=== PATIENT | male | born 1945 | race Hispanic/Latino ===

== ENCOUNTER 2017-10-29 17:36 | Emergency (ER) | payer OTHER ==
[2017-10-29 18:20] LABS: Absolute Lymphocytes (CBC) 1.1 K/uL (0.7-4.9); Absolute Monocytes 0.4 K/uL (0.1-1.3); Absolute Neutrophil 4.6 K/uL (1.8-8.0); Eosinophils % 3.9 % (0-4.4); Hematocrit 40.5 % (39.6-49.0); Lymphocytes % 16.6 % (15.3-44.8); MCH 31.8 pg (27.0-35.0); MCV 90.6 fL (80-100); Monocytes % 6.6 % (3.3-12.3); RBC Red Blood Cell Count 4.47 M/uL (4.33-5.43)
[2017-10-29 18:38] LABS: Albumin 4.3 g/dL (3.4-5.0); Bilirubin Direct 0.2 mg/dL (0-0.2); Bilirubin Total 0.7 mg/dL (0.2-1.0); Potassium 4.2 mmol/L (3.5-5.1); Protein, Total 8.1 g/dL (6.4-8.2)
--- NOTE | 2017-10-29 19:05 | RAD REPORT ---
EXAM DESCRIPTION: CT - Stone Protocol - 10/29/2017 6:42 pm CLINICAL HISTORY: Abdominal pain. Hematuria COMPARISON: November 2016 TECHNIQUE: Computed axial tomography of the abdomen pelvis was obtained without oral or IV contrast. Lack of IV and oral contrast limits evaluation of solid organs, bowel, and vessels. Coronal reformat bridget images were obtained and reviewed. All CT scans are performed using dose optimization technique as appropriate and may include automated exposure control or mA/KV adjustment according to patient size. FINDINGS: A renal calculus is not seen. An ureteral calculus is not noted. A bladder calculus is not present. The bladder is not well distended. There may be bladder wall thickening present. Mild stran ding is present within the adjacent fat. The prostate gland is mildly to moderately enlarged A small right inguinal hernia is present The liver, pancreas and adrenals appear grossly normal. The spleen is borderline enlarged Postsurgical changes involve the colon without obstruction. Diverticula stem from the colon. Minimal stranding is present adjacent to the sigmoid colon. IMPRESSION: Negative for a genitourinary calculus Minimal sigmoid diverticulitis is suspected Possible bladder wall thickening with mild stranding within the adjacent fat may indicate a cystitis
[2017-10-29 19:33] LABS: Urine Appearance TURBID; Urine Blood 3+ (NEG); Urine Color RED; Urine Glucose NEGATIVE (NEG); Urine Protein 3+ (NEG); Urine Specific Gravity 1.025 (1.005-1.030)
[2017-10-29 19:46] LABS: Urine Bilirubin NEGATIVE (NEG)
[2017-10-29] MEDS ORDERED: NA CHLORIDE 0.9% 1,000 ML ONE (20:09)
[2017-10-29] MEDS ORDERED: CEFTRIAXONE/SWI 1gm 1 GM/10 ML SYR ONE (20:09)
--- NOTE | 2017-10-29 20:40 | ER ---
Nurse's Notes [facility] Name: Reynaldo Perdomo Age: 72 yrs Sex: Male : 1945 Arrival Date: 10/29/2017 Time: 17:38 Bed 19 Private MD: Diagnosis: Cystitis, unspecified with hematuria Presentation: 10/29 17:38 Transition of care: patient was not received from another setting of care. Onset of rb1 symptoms was October 29, 2017 at 16:30. Care prior to arrival: None. 17:38 Method Of Arrival: EMS: [facility] 17:39 Presenting complaint: EMS states: pt reports blood in urine that started around 1600 tl3 today. Pt states obvious blood in urine and was told by his physician that he has kidney damage. 18:00 Acuity: GIANFRANCO 3 rb1 18:00 Risk Assessment: Do you want to hurt yourself or someone else? Patient reports no rb1 desire to harm self or others. Initial Sepsis Screen: Does the patient meet any 2 criteria? No. Patient's initial sepsis screen is negative. Does the patient have a suspected source of infection? No. Patient's initial sepsis screen is negative. Triage Assessment: 17:41 General: Appears in no apparent distress. Behavior is calm, cooperative. Pain: Denies dm5 pain. Neuro: Level of Consciousness is awake, alert, obeys commands, Oriented to person, place, time. Cardiovascular: Denies chest pain. Respiratory: Airway is patent Respiratory effort is even, unlabored, relaxed, Respiratory pattern is regular. : Reports blood in urine Denies burning with urination, inability to void. Derm: Skin is pink, warm \T\ dry. Historical: - Allergies: 18:00 No Known Allergies; rb1 - Home Meds: 18:00 amlodipine oral [Active]; Aspirin Oral [Active]; clopidogrel 75 mg Oral tab 1 tab once rb1 daily [Active]; levothyroxine oral [Active]; Metoprolol Tartrate Oral [Active]; pantoprazole Oral [Active]; rosuvastatin Oral [Active]; - PMHx: 18:00 Hypertension; [place]; stroke; rb1 - PSHx: 18:00 Cholecystectomy; Hernia repair; unknown intestinal surgery; cardiac stents x2; rb1 - Immunization history:: Adult Immunizations up to date. - Ebola Screening: : Patient negative for fever greater than or equal to 101.5 degrees Fahrenheit, and additional compatible Ebola Virus Disease symptoms. - Social history:: Smoking status: Patient/guardian denies using tobacco. Screenin:00 Abuse screen: Denies threats or abuse. Nutritional screening: No deficits noted. rb1 Tuberculosis screening: No symptoms or risk factors identified. Fall Risk None identified. Assessment: 18:00 General: Appears in no apparent distress. comfortable, Behavior is calm, cooperative. rb1 Pain: Denies pain. Neuro: Level of Consciousness is awake, alert, obeys commands, Oriented to person, place, time, situation. Cardiovascular: Capillary refill < 3 seconds is brisk in bilateral fingers. Respiratory: Airway is patent Respiratory effort is even, unlabored, Respiratory pattern is regular, symmetrical. GI: Reports nausea. : Reports bloody urine Denies burning with urination. Derm: Skin is dry, Skin is normal, Skin temperature is warm. 20:58 Reassessment: PT D/C HOME AMBULATORY, DX WITH HEMATURIA AND UTI. bp Vital Signs: 17:41 BP 166 / 68; Pulse 55; Resp 18; Temp 97.4; Pulse Ox 96% on R/A; Weight 124.74 kg; dm5 Height 5 ft. 11 in. (180.34 cm); 19:30 BP 160 / 61; Pulse 51; Resp 14; Pulse Ox 94% ; bp 20:59 BP 141 / 65; Pulse 51; Resp 14; Pulse Ox 94% ; bp 17:41 Body Mass Index 38.35 (124.74 kg, 180.34 cm) dm5 ED Course: 17:38 Patient arrived in ED. tl3 17:41 Arm band placed on right wrist. Patient placed in an exam room, on a stretcher. dm5 18:00 Patient has correct armband on for positive identification. Placed in gown. Bed in low rb1 position. Call light in reach. Side rails up X 1. Pulse ox on. NIBP on. Warm blanket given. 18:00 Initial lab(s) drawn, by me, sent to lab. Inserted saline lock: 22 gauge in left sv forearm, using aseptic technique. Blood collected. Flushed left forearm with 5 ml normal saline. 18:05 Sai Brito NP is PHCP. pm1 18:05 Jimenez Olivo MD is Attending Physician. pm1 18:33 Jazzmine Pina, RN is Primary Nurse. rb1 18:42 CT Stone Protocol In Process Unspecified. EDMS 18:48 Triage completed. rb1 19:00 Report given to JOSE F Mason. rb1 20:33 Primary Nurse role handed off by Jazzmine Pina, JOSE F bp 20:33 Marlon Rowland, RN is Primary Nurse. bp 20:39 Majo Gibson MD is Referral Physician. pm1 20:59 No provider procedures requiring assistance completed. IV discontinued, intact, bp bleeding controlled, No redness/swelling at site. Pressure dressing applied. Administered Medications: 20:00 Drug: Rocephin 1 grams Route: IV; Rate: calculated rate; Site: left forearm; bp 20:59 Follow up: IV Status: Completed infusion; IV Intake: 50ml bp 20:00 Drug: NS 0.9% 1000 ml Route: IV; Rate: 1000 ml; Site: left forearm; bp 21:00 Follow up: IV Status: Completed infusion; IV Intake: 1000ml bp Intake: 20:59 IV: 50ml; Total: 50ml. bp 21:00 IV: 1000ml; Total: 1050ml. bp Outcome: 20:39 Discharge ordered by MD. pm1 20:58 Discharged to home ambulatory. bp 20:58 Condition: stable 20:58 Discharge instructions given to patient, Instructed on discharge instructions, follow up and referral plans. medication usage, Demonstrated understanding of instructions, follow-up care, medications, Prescriptions given X 1. 21:00 Patient left the ED. bp Addendum: 11/03/2017 07:47 Addendum: Culture Results: Positive urine culture. No further action required. Bacteria s s sensitive to prescribed antibiotic. Signatures: Dispatcher [employer] EDHI Jesusita Johnson RN JOSE F dm5 Bere Martin RN Karen Bangura RN RN Jazzmine Pina, RN JOSE F rb1 Sai Brito, GRAILS WEB APPLICATION DEVELOPER GRAILS WEB APPLICATION DEVELOPER pm1 Marlon Rowland, Nayeli Wolff RN, RN RN tl3
--- NOTE | 2017-10-29 20:40 | EDPHYS ---
Physician Documentation [facility] Name: Reynaldo Perdomo Age: 72 yrs Sex: Male : 1945 Arrival Date: 10/29/2017 Time: 17:38 Bed 19 Private MD: ED Physician Jimenez Olivo HPI: 10/29 20:00 This 72 yrs old Male presents to ER via EMS with complaints of Urinary Problem pm1 - blood in urine. 20:00 The patient presents with urinary symptoms, painless hematuria. Onset: The pm1 symptoms/episode began/occurred today. Modifying factors: The symptoms are alleviated by nothing, the symptoms are aggravated by nothing. Associated signs and symptoms: Pertinent negatives: abdominal pain, chest pain, dysuria, fever, shortness of breath. Severity of symptoms: in the emergency department the symptoms have improved. The patient has not experienced similar symptoms in the past. The patient has not recently seen a physician. Patient with complaints of painless hematuria with onset 3 hours prior to arrival. Historical: - Allergies: 18:00 No Known Allergies; rb1 - Home Meds: 18:00 amlodipine oral [Active]; Aspirin Oral [Active]; clopidogrel 75 mg Oral tab 1 tab once rb1 daily [Active]; levothyroxine oral [Active]; Metoprolol Tartrate Oral [Active]; pantoprazole Oral [Active]; rosuvastatin Oral [Active]; - PMHx: 18:00 Hypertension; [place]; stroke; rb1 - PSHx: 18:00 Cholecystectomy; Hernia repair; unknown intestinal surgery; cardiac stents x2; rb1 - Immunization history:: Adult Immunizations up to date. - Ebola Screening: : Patient negative for fever greater than or equal to 101.5 degrees Fahrenheit, and additional compatible Ebola Virus Disease symptoms. - Social history:: Smoking status: Patient/guardian denies using tobacco. ROS: 20:00 Constitutional: Negative for fever, chills, and weight loss, Eyes: Negative for injury, pm1 pain, redness, and discharge, ENT: Negative for injury, pain, and discharge, Neck: Negative for injury, pain, and swelling, Cardiovascular: Negative for chest pain, palpitations, and edema, Respiratory: Negative for shortness of breath, cough, wheezing, and pleuritic chest pain, Abdomen/GI: Negative for abdominal pain, nausea, vomiting, diarrhea, and constipation, Back: Negative for injury and pain. 20:00 MS/Extremity: Negative for injury and deformity, Skin: Negative for injury, rash, and discoloration, Neuro: Negative for headache, weakness, numbness, tingling, and seizure. 20:00 : Positive for hematuria, Negative for urinary frequency, small amounts, burning with urination, difficulty urinating, penile discharge. Exam: 20:00 Constitutional: This is a well developed, well nourished patient who is awake, alert, pm1 and in no acute distress. Head/Face: Normocephalic, atraumatic. Eyes: Pupils equal round and reactive to light, extra-ocular motions intact. Lids and lashes normal. Conjunctiva and sclera are non-icteric and not injected. Cornea within normal limits. Periorbital areas with no swelling, redness, or edema. ENT: Nares patent. No nasal discharge, no septal abnormalities noted. Tympanic membranes are normal and external auditory canals are clear. Oropharynx with no redness, swelling, or masses, exudates, or evidence of obstruction, uvula midline. Mucous membranes moist. Neck: Trachea midline, no thyromegaly or masses palpated, and no cervical lymphadenopathy. Supple, full range of motion without nuchal rigidity, or vertebral point tenderness. No Meningismus. Chest/axilla: Normal chest wall appearance and motion. Nontender with no deformity. No lesions are appreciated. Cardiovascular: Regular rate and rhythm with a normal S1 and S2. No gallops, murmurs, or rubs. No pulse deficits. Respiratory: Lungs have equal breath sounds bilaterally, clear to auscultation and percussion. No rales, rhonchi or wheezes noted. No increased work of breathing, no retractions or nasal flaring. Abdomen/GI: Soft, non-tender, with normal bowel sounds. No distension or tympany. No guarding or rebound. No evidence of tenderness throughout. Back: No spinal tenderness. No costovertebral tenderness. Full range of motion. Skin: Warm, dry with normal turgor. Normal color with no rashes, no lesions, and no evidence of cellulitis. MS/ Extremity: Pulses equal, no cyanosis. Neurovascular intact. Full, normal range of motion. 20:00 Neuro: Orientation: is normal, Motor: is normal, moves all fours. Vital Signs: 17:41 BP 166 / 68; Pulse 55; Resp 18; Temp 97.4; Pulse Ox 96% on R/A; Weight 124.74 kg; dm5 Height 5 ft. 11 in. (180.34 cm); 19:30 BP 160 / 61; Pulse 51; Resp 14; Pulse Ox 94% ; bp 20:59 BP 141 / 65; Pulse 51; Resp 14; Pulse Ox 94% ; bp 17:41 Body Mass Index 38.35 (124.74 kg, 180.34 cm) dm5 MDM: 18:05 Patient medically screened. pm1 20:38 Data reviewed: vital signs. Data interpreted: Pulse oximetry: on room air is 96 %. pm1 Interpretation: normal. Counseling: I had a detailed discussion with the patient and/or guardian regarding: the historical points, exam findings, and any diagnostic results supporting the discharge/admit diagnosis, lab results, radiology results, the need for outpatient follow up, to return to the emergency department if symptoms worsen or persist or if there are any questions or concerns that arise at home. 20:38 ED course: Instructed to the patient to follow up with urology for cystoscopy to rule pm1 out the possibility of cancer due to painless hematuria/cystitis. 10/29 17:44 Order name: Basic Metabolic Panel; Complete Time: 19:47 al 10/29 17:44 Order name: CBC with Diff; Complete Time: 19:47 10/29 17:44 Order name: Hepatic Function; Complete Time: 19:47 al 10/29 17:44 Order name: Lipase; Complete Time: 19:47 al 10/29 19:02 Order name: Urinalysis bp 10/29 17:44 Order name: IV Saline Lock; Complete Time: 18:54 al 10/29 17:44 Order name: Labs collected and sent; Complete Time: 18:54 al 10/29 18:11 Order name: CT Stone Protocol; Complete Time: 19:47 pm1 10/29 19:27 Order name: Urinalysis W/Microscopic EDMS 10/29 19:47 Order name: Urine Culture pm1 Administered Medications: 20:00 Drug: Rocephin 1 grams Route: IV; Rate: calculated rate; Site: left forearm; bp 20:59 Follow up: IV Status: Completed infusion; IV Intake: 50ml bp 20:00 Drug: NS 0.9% 1000 ml Route: IV; Rate: 1000 ml; Site: left forearm; bp 21:00 Follow up: IV Status: Completed infusion; IV Intake: 1000ml bp Disposition: 10/29/17 20:39 Discharged to Home. Impression: Cystitis, unspecified with hematuria. - Condition is Stable. - Discharge Instructions: Urinary Tract Infection, Adult. - Prescriptions for Bactrim DS 800- 160 mg Oral Tablet - take 1 tablet by ORAL route every 12 hours for 10 days; 20 tablet. - Medication Reconciliation Form, Thank You Letter, Antibiotic Education, Prescription Opioid Use form. - Follow up: Emergency Department; When: As needed; Reason: Worsening of condition. Follow up: Majo Gibson MD; When: 2 - 3 days; Reason: Recheck today's complaints, Continuance of care, Re-evaluation by your physician. - Problem is new. - Symptoms have improved. Addendum: 10/31/2017 11:30 Co-signature as Attending Physician, Jimenez Oilvo MD I agree with the assessment and w a plan of care. Signatures: Dispatcher [employer] [facility] Jazzmine Pina, RN RN rb1 Sai Brito, SABIHA SQUIRT MACHINE OPERATOR pm1 Jimenez Olivo MD MD al Marlon Rowland, RN RN bp Corrections: (The following items were deleted from the chart) 10/29 19:03 17:44 Urine Dipstick-Ancillary ordered. [facility] 19:27 17:44 UA MICROSCOPIC+U.LAB.BRZ ordered. [facility] 19:27 19:02 Urinalysis ordered. [facility] 21:00 20:39 10/29/2017 20:39 Discharged to Home. Impression: Cystitis, unspecified with bp hematuria. Condition is Stable. Forms are Medication Reconciliation Form, Thank You Letter, Antibiotic Education, Prescription Opioid Use. Follow up: Emergency Department; When: As needed; Reason: Worsening of condition. Follow up: Majo Gibson; When: 2 - 3 days; Reason: Recheck today's complaints, Continuance of care, Re-evaluation by your physician. Problem is new. Symptoms have improved. pm1
[2017-10-29 21:05] VITALS: TEMP 97.4
[2017-10-29 21:06] VITALS: O2SAT 94
[2017-10-29 21:07] VITALS: BP 141/65
[2017-10-29 21:56] LABS: Urine Bacteria 20-50 /HPF (NONE SEEN); Urine Culture Reflex Order NOT NEEDED; Urine RBC LOADED /HPF (NONE SEEN)
== END 2017-10-29 21:00 | disposition home or self-care (01) ==
LOC: ER 17:36
DX: N30.91 Cystitis, unspecified with hematuria (principal); Z79.02 Long term (current) use of antithrombotics/antiplatelets; Z79.82 Long term (current) use of aspirin; I10 Essential (primary) hypertension; Z86.73 Personal history of transient ischemic attack (TIA), and cerebral infarction without residual deficits; I25.2 Old myocardial infarction; Z95.5 Presence of coronary angioplasty implant and graft
CPT/HCPCS: 36415; 74176; 76377; 80048; 80076; 81001; 83690; 85025; J0696; J7030; 87077; 87086; 87088; 87186; 96365; 99284

== ENCOUNTER 2018-06-11 09:06 | Emergency (ER) | payer OTHER, SELFPAY ==
[2018-06-11 09:51] LABS: Urine Appearance CLOUDY; Urine Bilirubin NEGATIVE (NEG); Urine Blood 3+ (NEG); Urine Glucose NEGATIVE (NEG); Urine Protein 2+ (NEG)
[2018-06-11 09:55] LABS: Urine Color RED; Urine Microscopic Reflex ORDER UMIC
[2018-06-11] MEDS ORDERED: CEFTRIAXONE/SWI 1gm 1 GM/10 ML SYR ONE (09:57)
[2018-06-11] MEDS ORDERED: TAMSULOSIN 0.4 MG SR CAP ONE (09:57)
[2018-06-11] MEDS ORDERED: NA CHLORIDE 0.9% 500 ML ONE (09:57)
[2018-06-11 09:58] LABS: Urine Bacteria 20-50 /HPF (NONE SEEN); Urine RBC TNTC /HPF (NONE SEEN)
[2018-06-11 09:59] LABS: Urine Culture Reflex Order NOT NEEDED
--- NOTE | 2018-06-11 10:02 | RAD REPORT ---
EXAM DESCRIPTION: CT - Stone Protocol - 06/11/2018 9:53 am CLINICAL HISTORY: Flank pain. FLANK PAIN COMPARISON: Stone Protocol dated 10/29/2017; Stone Protocol dated 11/12/2016 TECHNIQUE: Axial images were obtained without oral or IV contrast. Lack of contrast limits solid org an and vascular assessment. The [id number] spans the entirety of the system partially obscuring uppermost abdomen and lung bases. Coronal reformatted images were obtained and reviewed. All CT scans are performed using dose optimization technique as appropriate and may include automated exposure control or mA/KV adjustment according to patient size. FINDINGS: The lower lung martinez are clear. Imaged portions of the liver and spleen show no suspicious findings on non-contrast imaging. The panc reas and adrenal glands are normal. No pathologic lymphadenopathy in the abdomen or pelvis. 5 mm stone is present inferior calyx left kidney. No hydronephrosis. No bowel obstruction, free air, free fluid or abscess. Normal appendix noted.Prominent sigmoid divert iculosis is present without diverticulitis. Moderate fecal retention is seen in the colon. Urinary bl adder is decompressed partially however as irregular appearance anteriorly with mild fat stranding in the pelvis. No significant bony abnormality. Moderate fat containing right inguinal hernia. IMPRESSION: 5 mm stone inferior left kidney without hydronephrosis. Inflammatory changes with wall thickening the anterior aspect of the urinary bladder. Cystitis or mas s is possible. Advise followup direct visualization with cystoscopy.
[2018-06-11] MEDS ORDERED: ACETAMINOPHEN 325 MG TABLET ONE (10:16)
[2018-06-11 10:27] LABS: Absolute Lymphocytes (CBC) 0.9 K/uL (0.7-4.9); Absolute Monocytes 0.4 K/uL (0.1-1.3); Absolute Neutrophil 3.8 K/uL (1.8-8.0); Basophils % 1.2 % (0-1.3); Eosinophils % 3.5 % (0-4.4); Hematocrit 41.4 % (39.6-49.0); Lymphocytes % 17.4 % (15.3-44.8); MPV 8.3 fL (7.6-11.3); Monocytes % 6.9 % (3.3-12.3); RBC Red Blood Cell Count 4.67 M/uL (4.33-5.43)
[2018-06-11] MEDS ORDERED: CIPROFLOXACIN HCL 500 MG TAB ONE (10:35)
[2018-06-11 10:40] LABS: Albumin 3.7 g/dL (3.4-5.0); Bilirubin Direct 0.2 mg/dL (0-0.2); Bilirubin Total 0.7 mg/dL (0.2-1.0); Potassium 4.1 mmol/L (3.5-5.1); Protein, Total 7.4 g/dL (6.4-8.2)
--- NOTE | 2018-06-11 10:47 | ER ---
Nurse's Notes [facility] Name: Reynaldo Perdomo Age: 72 yrs Sex: Male : 1945 Arrival Date: 06/11/2018 Time: 09:11 Bed 18 Private MD: Diagnosis: Urinary tract infection, site not specified;Cystitis;Hematuria;Unspecified kidney failure-insufficency;Unspecified combined systolic (congestive) and diastolic (congestive) heart failure Presentation: 06/11 09:12 Presenting complaint: EMS states: Left flank pain and blood in urine + clots since this morning. Transition of care: patient was not received from another setting of care. Onset of symptoms was June 11, 2018. Risk Assessment: Do you want to hurt yourself or someone else? Patient reports no desire to harm self or others. Care prior to arrival: None. 09:12 Method Of Arrival: Ambulatory 09:12 Acuity: GIANFRANCO 3 hb 09:23 Initial Sepsis Screen: Does the patient meet any 2 criteria? No. Patient's initial em sepsis screen is negative. Does the patient have a suspected source of infection? No. Patient's initial sepsis screen is negative. Historical: - Allergies: 09:14 No Known Allergies; hb - Home Meds: 09:14 amlodipine 5 mg oral tab once daily [Active]; aspirin 325 mg oral tab once daily hb [Active]; clopidogrel 75 mg Oral tab 1 tab once daily [Active]; levothyroxine 75 mcg oral tab once daily [Active]; metoprolol tartrate 50 mg oral tab 2 times per day [Active]; pantoprazole 40 mg oral TbEC once daily [Active]; rosuvastatin 20 mg oral tab once daily [Active]; - PMHx: 09:14 Hypertension; [place]; stroke; Kidney stones; hb - PSHx: 09:14 Cholecystectomy; Hernia repair; unknown intestinal surgery; cardiac stents x2; hb - Immunization history:: Adult Immunizations up to date. - Social history:: Smoking status: Patient/guardian denies using tobacco. - Ebola Screening: : No symptoms or risks identified at this time. - Family history:: not pertinent. Screenin:22 Abuse screen: Denies threats or abuse. Nutritional screening: No deficits noted. em Tuberculosis screening: No symptoms or risk factors identified. Fall Risk None identified. Assessment: 09:24 General: Appears in no apparent distress. comfortable, Behavior is calm, cooperative, em Denies fever. Pain: Complains of pain in left low back Pain currently is 0 out of 10 on a pain scale. at worst was 7 out of 10 on a pain scale. Quality of pain is described as sharp. Neuro: Level of Consciousness is awake, alert, obeys commands, Oriented to person, place, time, situation, Moves all extremities. Gait is steady, Speech is normal. Cardiovascular: Capillary refill < 3 seconds Patient's skin is warm and dry. Respiratory: Airway is patent Respiratory effort is even, unlabored, Respiratory pattern is regular, symmetrical. GI: Abdomen is round non-distended, Bowel sounds present X 4 quads. Abd is soft and non tender X 4 quads. Reports nausea, Patient currently denies vomiting. : Reports blood in urine since this morning Denies burning with urination. Derm: Skin is intact, is healthy with good turgor, Skin is pink, warm \T\ dry. Musculoskeletal: Capillary refill < 3 seconds, Range of motion: intact in all extremities. 09:35 Reassessment: I agree with previous assessment. hb 10:10 Reassessment: reports a headache that began this morning, rates pain 4/10, request em something for pain, provider notified. 11:34 Reassessment: Patient appears in no apparent distress at this time. Patient and/or em family updated on plan of care and expected duration. Pain level reassessed. Patient is alert, oriented x 3, equal unlabored respirations, skin warm/dry/pink. Vital Signs: 09:11 BP 172 / 64; Pulse 56; Resp 16; Temp 97.9; Pulse Ox 100% on R/A; Pain 7/10; hb 10:19 BP 136 / 76; Pulse 54; Resp 18; Pulse Ox 99% on R/A; Pain 4/10; em 11:35 BP 145 / 82; Pulse 55; Resp 20; Pulse Ox 100% on R/A; em ED Course: 09:11 Patient arrived in ED. hb 09:12 Triage completed. hb 09:12 Arm band placed on. hb 09:13 Donte Ramos LVN is Primary Nurse. em 09:13 Brandon Tanner MD is Attending Physician. dannielle 09:22 Patient has correct armband on for positive identification. Placed in gown. Bed in low em position. Call light in reach. Side rails up X2. Pulse ox on. NIBP on. 09:41 Urine collected: clean catch specimen, kemar blood. em 09:50 CT completed. Patient tolerated procedure well. Patient moved back from CT. bq 09:54 CT Stone Protocol In Process Unspecified. EDMS 10:10 Initial lab(s) drawn, by me, sent to lab. Inserted saline lock: 20 gauge in right em antecubital area, using aseptic technique. Blood collected. 10:46 Majo Gibson MD is Referral Physician. dannielle 10:46 Hardy Neely MD is Referral Physician. dannielle 11:26 Lisandro Forbes MD is Referral Physician. dannielle 11:28 No provider procedures requiring assistance completed. IV discontinued, intact, em bleeding controlled, No redness/swelling at site. Pressure dressing applied. Administered Medications: 10:12 Drug: Rocephin - (cefTRIAXone) 1 grams Route: IVPB; Infused Over: 30 mins; Site: right la1 antecubital; 10:30 Follow up: IV Status: Completed infusion; IV Intake: 10ml em 10:14 Drug: Flomax 0.4 mg Route: PO; em 11:02 Follow up: Response: No adverse reaction em 10:15 Drug: NS 0.9% 500 ml Route: IV; Rate: bolus; Site: right antecubital; em 11:00 Follow up: IV Status: Completed infusion; IV Intake: 500ml em 10:15 Drug: Tylenol 650 mg Route: PO; em 11:02 Follow up: Response: No adverse reaction em 10:26 Drug: Cipro 500 mg Route: PO; em 11:02 Follow up: Response: No adverse reaction em Intake: 10:30 IV: 10ml; Total: 10ml. em 11:00 IV: 500ml; Total: 510ml. em Outcome: 10:47 Discharge ordered by . dannielle 11:34 Discharged to home ambulatory. em 11:34 Condition: good 11:34 Discharge instructions given to patient, family, Instructed on discharge instructions, follow up and referral plans. medication usage, Demonstrated understanding of instructions, follow-up care, medications, Prescriptions given X 3. 11:35 Patient left the ED. em Signatures: Dispatcher [employer] EDMS Brandon Tanner MD MD cha Quilty, Jennifer bq Ramos, Donte, SECOND WORKER SECOND WORKER Chai Parker, RN RN la1 Socorro Singh, RN RN hb
--- NOTE | 2018-06-11 10:47 | EDPHYS ---
Physician Documentation [facility] Name: Reynaldo Perdomo Age: 72 yrs Sex: Male : 1945 Arrival Date: 06/11/2018 Time: 09:11 Bed 18 Private MD: MARILYNN Physician Brandon Tanner HPI: 06/11 09:33 This 72 yrs old Male presents to ER via Ambulatory with complaints of Flank dannielle Pain, blood in urine. 09:33 The patient complains of pain in the left low back and left mid back. The pain radiates dannielle to the left low back and left mid back, to the . Onset: The symptoms/episode began/occurred 1 day(s) ago. Modifying factors: The symptoms are alleviated by nothing. the symptoms are aggravated by nothing. Associated signs and symptoms: The patient has no apparent associated signs or symptoms. Severity of pain: At its worst the pain was mild. The patient has not experienced similar symptoms in the past. Historical: - Allergies: 09:14 No Known Allergies; hb - Home Meds: 09:14 amlodipine 5 mg oral tab once daily [Active]; aspirin 325 mg oral tab once daily hb [Active]; clopidogrel 75 mg Oral tab 1 tab once daily [Active]; levothyroxine 75 mcg oral tab once daily [Active]; metoprolol tartrate 50 mg oral tab 2 times per day [Active]; pantoprazole 40 mg oral TbEC once daily [Active]; rosuvastatin 20 mg oral tab once daily [Active]; - PMHx: 09:14 Hypertension; [place]; stroke; Kidney stones; hb - PSHx: 09:14 Cholecystectomy; Hernia repair; unknown intestinal surgery; cardiac stents x2; hb - Immunization history:: Adult Immunizations up to date. - Social history:: Smoking status: Patient/guardian denies using tobacco. - Ebola Screening: : No symptoms or risks identified at this time. - Family history:: not pertinent. ROS: 09:33 Constitutional: Negative for fever, chills, and weight loss, Eyes: Negative for injury, dannielle pain, redness, and discharge, ENT: Negative for injury, pain, and discharge, Neck: Negative for injury, pain, and swelling, Cardiovascular: Negative for chest pain, palpitations, and edema, Respiratory: Negative for shortness of breath, cough, wheezing, and pleuritic chest pain, MS/Extremity: Negative for injury and deformity, Skin: Negative for injury, rash, and discoloration, Neuro: Negative for headache, weakness, numbness, tingling, and seizure, Psych: Negative for depression, anxiety, suicide ideation, homicidal ideation, and hallucinations, Allergy/Immunology: Negative for hives, rash, and allergies, Endocrine: Negative for neck swelling, polydipsia, polyuria, polyphagia, and marked weight changes, Hematologic/Lymphatic: Negative for swollen nodes, abnormal bleeding, and unusual bruising. 09:33 Abdomen/GI: Positive for abdominal pain, of the anterior aspect of left lateral abdomen, posterior aspect of left lateral abdomen, left upper quadrant and left lower quadrant. Exam: 09:33 Constitutional: This is a well developed, well nourished patient who is awake, alert, dannielle and in no acute distress. Head/Face: Normocephalic, atraumatic. Eyes: Pupils equal round and reactive to light, extra-ocular motions intact. Lids and lashes normal. Conjunctiva and sclera are non-icteric and not injected. Cornea within normal limits. Periorbital areas with no swelling, redness, or edema. ENT: Nares patent. No nasal discharge, no septal abnormalities noted. Tympanic membranes are normal and external auditory canals are clear. Oropharynx with no redness, swelling, or masses, exudates, or evidence of obstruction, uvula midline. Mucous membranes moist. Neck: Trachea midline, no thyromegaly or masses palpated, and no cervical lymphadenopathy. Supple, full range of motion without nuchal rigidity, or vertebral point tenderness. No Meningismus. Chest/axilla: Normal chest wall appearance and motion. Nontender with no deformity. No lesions are appreciated. Cardiovascular: Regular rate and rhythm with a normal S1 and S2. No gallops, murmurs, or rubs. Normal PMI, no JVD. No pulse deficits. Respiratory: Lungs have equal breath sounds bilaterally, clear to auscultation and percussion. No rales, rhonchi or wheezes noted. No increased work of breathing, no retractions or nasal flaring. Male : Normal genitalia with no discharge or lesions. Skin: Warm, dry with normal turgor. Normal color with no rashes, no lesions, and no evidence of cellulitis. MS/ Extremity: Pulses equal, no cyanosis. Neurovascular intact. Full, normal range of motion. Neuro: Awake and alert, GCS 15, oriented to person, place, time, and situation. Cranial nerves II-XII grossly intact. Motor strength 5/5 in all extremities. Sensory grossly intact. Cerebellar exam normal. Normal gait. Psych: Awake, alert, with orientation to person, place and time. Behavior, mood, and affect are within normal limits. 09:33 Abdomen/GI: Inspection: abdomen appears normal, Bowel sounds: normal, Palpation: mild abdominal tenderness, Liver: no appreciated palpable abnormalities, Hernia: not appreciated. Vital Signs: 09:11 BP 172 / 64; Pulse 56; Resp 16; Temp 97.9; Pulse Ox 100% on R/A; Pain 7/10; hb 10:19 BP 136 / 76; Pulse 54; Resp 18; Pulse Ox 99% on R/A; Pain 4/10; em 11:35 BP 145 / 82; Pulse 55; Resp 20; Pulse Ox 100% on R/A; em MDM: 09:13 Patient medically screened. [facility] 09:36 Data reviewed: vital signs, nurses notes, lab test result(s), EKG, radiologic studies. [facility] 06/11 09:32 Order name: Basic Metabolic Panel; Complete Time: 10:45 [facility] 06/11 09:32 Order name: CBC with Diff; Complete Time: 10:38 [facility] 06/11 09:32 Order name: Creatinine for Radiology; Complete Time: 10:45 dannielle 06/11 09:32 Order name: Hepatic Function; Complete Time: 10:45 dannielle 06/11 09:32 Order name: Lipase; Complete Time: 10:45 [facility] 06/11 09:32 Order name: Urine Culture [facility] 06/11 09:32 Order name: CT Stone Protocol; Complete Time: 10:03 dannielle 06/11 09:36 Order name: UA; Complete Time: 10:03 bd 06/11 09:57 Order name: Urine Microscopic Only; Complete Time: 10:03 EDMS 06/11 09:32 Order name: IV Saline Lock; Complete Time: 09:41 dannielle 06/11 09:32 Order name: Labs collected and sent; Complete Time: 09:41 dannielle 06/11 09:32 Order name: Urine Dipstick-Ancillary (obtain specimen); Complete Time: 09:39 dannielle Administered Medications: 10:12 Drug: Rocephin - (cefTRIAXone) 1 grams Route: IVPB; Infused Over: 30 mins; Site: right la1 antecubital; 10:30 Follow up: IV Status: Completed infusion; IV Intake: 10ml em 10:14 Drug: Flomax 0.4 mg Route: PO; em 11:02 Follow up: Response: No adverse reaction em 10:15 Drug: NS 0.9% 500 ml Route: IV; Rate: bolus; Site: right antecubital; em 11:00 Follow up: IV Status: Completed infusion; IV Intake: 500ml em 10:15 Drug: Tylenol 650 mg Route: PO; em 11:02 Follow up: Response: No adverse reaction em 10:26 Drug: Cipro 500 mg Route: PO; em 11:02 Follow up: Response: No adverse reaction em Disposition: 06/11/18 10:47 Discharged to Home. Impression: Urinary tract infection, site not specified, Cystitis, Hematuria, Unspecified kidney failure - insufficency, Unspecified combined systolic (congestive) and diastolic (congestive) heart failure. - Condition is Stable. - Discharge Instructions: Heart Failure, Dysuria, Hematuria, Adult, Urinary Tract Infection, Adult, Kidney Stones, [id number], Urinary Tract Infection, Adult, [id number]-[id number], Chronic Kidney Disease, Adult, Kswl-rj-[id number], Heart Failure, Hicr-gj-Hmbj, Chronic Kidney Disease, Adult. - Prescriptions for Cipro 250 mg Oral Tablet - take 1 tablet by ORAL route every 12 hours for 7 days; 14 tablet. Flomax 0.4 mg Oral Capsule, Sust. Release 24 hr - take 1 capsule by ORAL route once daily 1/2 hour following the same meal each day; 20 capsule. Bactrim DS 800- 160 mg Oral Tablet - take 1 tablet by ORAL route every 12 hours for 5 days; 6 tablet. - Medication Reconciliation Form, Thank You Letter, Antibiotic Education, Prescription Opioid Use form. - Follow up: Private Physician; When: 2 - 3 days; Reason: Recheck today's complaints, Continuance of care, Re-evaluation by your physician. Follow up: Majo Gibson; When: 2 - 3 days; Reason: Recheck today's complaints, Re-evaluation by your physician. Follow up: Hardy Neely MD; When: 2 - 3 days; Reason: Recheck today's complaints, Re-evaluation by your physician. Follow up: Lisandro Forbes MD; When: 1 - 2 days; Reason: Recheck today's complaints, Re-evaluation by your physician. - Problem is new. - Symptoms have improved. Signatures: Dispatcher [employer] EDBrandon Brock MD MD cha Munoz, Donte, FINAL TESTER FINAL TESTER em Chai Thompson RN RN la1 Socorro Singh RN RN Corrections: (The following items were deleted from the chart) 11:26 10:47 06/11/2018 10:47 Discharged to Home. Impression: Urinary tract infection, site dannielle not specified; Cystitis; Hematuria; Unspecified kidney failure - insufficency. Condition is Stable. Discharge Instructions: Dysuria, Hematuria, Adult, Urinary Tract Infection, Adult, Kidney Stones, Jwny-if-Iqoi, Urinary Tract Infection, Adult, Yzjh-[id number]. Prescriptions for Cipro 250 mg Oral Tablet - take 1 tablet by ORAL route every 12 hours for 10 days; 20 tablet, Flomax 0.4 mg Oral Capsule, Sust. Release 24 hr - take 1 capsule by ORAL route once daily 1/2 hour following the same meal each day; 20 capsule, Bactrim DS 800-160 mg Oral Tablet - take 1 tablet by ORAL route every 12 hours for 5 days; 6 tablet. and Forms are Medication Reconciliation Form, Thank You Letter, Antibiotic Education, Prescription Opioid Use. Follow up: Private Physician; When: 2 - 3 days; Reason: Recheck today's complaints, Continuance of care, Re-evaluation by your physician. Follow up: Majo Gibson; When: 2 - 3 days; Reason: Recheck today's complaints, Re-evaluation by your physician. Follow up: Hardy Neely; When: 2 - 3 days; Reason: Recheck today's complaints, Re-evaluation by your physician. Problem is new. Symptoms have improved. dannielle 11:35 11:26 06/11/2018 10:47 Discharged to Home. Impression: Urinary tract infection, site em not specified; Cystitis; Hematuria; Unspecified kidney failure - insufficency; Unspecified combined systolic (congestive) and diastolic (congestive) heart failure. Condition is Stable. Discharge Instructions: Dysuria, Hematuria, Adult, Urinary Tract Infection, Adult, Kidney Stones, [id number]-[id number], Urinary Tract Infection, Adult, Iurn-pj-Kjxi. Prescriptions for Cipro 250 mg Oral Tablet - take 1 tablet by ORAL route every 12 hours for 7 days; 14 tablet, Flomax 0.4 mg Oral Capsule, Sust. Release 24 hr - take 1 capsule by ORAL route once daily 1/2 hour following the same meal each day; 20 capsule, Bactrim DS 800-160 mg Oral Tablet - take 1 tablet by ORAL route every 12 hours for 5 days; 6 tablet. and Forms are Medication Reconciliation Form, Thank You Letter, Antibiotic Education, Prescription Opioid Use. Follow up: Private Physician; When: 2 - 3 days; Reason: Recheck today's complaints, Continuance of care, Re-evaluation by your physician. Follow up: Majo Gibson; When: 2 - 3 days; Reason: Recheck today's complaints, Re-evaluation by your physician. Follow up: Hardy Neely; When: 2 - 3 days; Reason: Recheck today's complaints, Re-evaluation by your physician. Follow up: Lisandro Forbes; When: 1 - 2 days; Reason: Recheck today's complaints, Re-evaluation by your physician. Problem is new. Symptoms have improved. dannielle
[2018-06-11 11:48] VITALS: TEMP 97.9
[2018-06-11 11:49] VITALS: BP 145/82; O2SAT 100
== END 2018-06-11 11:35 | disposition home or self-care (01) ==
LOC: ER 09:06
DX: N39.0 Urinary tract infection, site not specified (principal); N19 Unspecified kidney failure; I50.40 Unspecified combined systolic (congestive) and diastolic (congestive) heart failure; I10 Essential (primary) hypertension; I25.2 Old myocardial infarction
CPT/HCPCS: 36415; 74176; 76377; 80048; 80076; 81003; 81015; 83690; 85025; 87077; 87086; 87088; 87186; 96365; 99284; J0696

== ENCOUNTER 2019-07-19 21:17 | Emergency (ER) | payer OTHER ==
[2019-07-19] MEDS ORDERED: MORPHINE 4 MG/ML SYR ONE ×2 (22:38→23:54)
[2019-07-19 22:39] LABS: Absolute Lymphocytes (CBC) 0.8 K/uL (0.7-4.9); Basophils % 1.1 % (0-1.3); Hematocrit 42.7 % (39.6-49.0); Lymphocytes % 9.9 % (15.3-44.8); MPV 8.3 fL (7.6-11.3); RBC Red Blood Cell Count 4.88 M/uL (4.33-5.43)
[2019-07-19 22:51] LABS: Albumin 3.8 g/dL (3.4-5.0); Bilirubin Direct 0.3 mg/dL (0-0.2); Bilirubin Total 0.8 mg/dL (0.2-1.0); Protein, Total 8.2 g/dL (6.4-8.2)
[2019-07-19 23:07] LABS: Urine RBC TNTC /HPF (NONE SEEN)
[2019-07-19 23:08] LABS: Urine Bacteria <20 /HPF (NONE SEEN); Urine Culture Reflex Order REFLEXED; Urine Urothelial Cells <5 /HPF (NONE SEEN)
[2019-07-19 23:20] LABS: Urine Blood 3+ (NEG); Urine Glucose NEGATIVE (NEG); Urine Protein 3+ (NEG); Urine pH 5.5 (5.0-7.0)
[2019-07-19] MEDS ORDERED: MAGNESIUM SULFATE 1 gm IVPB 1 GM/100 ML BAG IV ONE (23:55)
[2019-07-19] MEDS ORDERED: TAMSULOSIN 0.4 MG SR CAP ONE (23:55)
[2019-07-19] MEDS ORDERED: CEFTRIAXONE/SWI 1gm 1 GM/10 ML SYR ONE (23:55)
--- NOTE | 2019-07-20 00:39 | EDPHYS ---
Physician Documentation [facility] Name: Reynaldo Perdomo Age: 73 yrs Sex: Male : 1945 Arrival Date: 07/19/2019 Time: 21:22 Bed 17 Private MD: ED Physician Eric Reed HPI: 07/18 21:44 This 73 yrs old Male presents to ER via EMS with complaints of Flank Pain. cp 21:44 The patient complains of pain in the left mid back. The pain radiates to the left cp lateral abdomen. Onset: The symptoms/episode began/occurred suddenly, today, at 17:30. 21:44 Associated signs and symptoms: Pertinent negatives: diarrhea, dysuria, fever, pain cp radiating to the lower extremities, vomiting. 21:44 Severity of pain: in the emergency department the pain is unchanged despite home cp interventions. Historical: - Allergies: 21:25 No Known Drug Allergies; ll1 - PMHx: 21:25 Hypertension; Kidney stones; CT; stroke; ll1 - PSHx: 21:25 Hernia repair; Cholecystectomy; cardiac stents x2; ll1 - Immunization history:: Adult Immunizations up to date. - Social history:: Smoking status: Patient denies any tobacco usage or history of. Patient/guardian denies using alcohol, street drugs, tobacco products. ROS: 21:50 Constitutional: Negative for body aches, chills, fever, poor PO intake. cp 21:50 Cardiovascular: Negative for chest pain, edema, palpitations. cp 21:50 Eyes: Negative for injury, pain, redness, and discharge. cp 21:50 ENT: Negative for drainage from ear(s), ear pain, sore throat, difficulty swallowing, difficulty handling secretions. 21:50 Respiratory: Negative for cough, shortness of breath, wheezing. 21:50 Abdomen/GI: Positive for abdominal pain, of the anterior aspect of left lateral abdomen and posterior aspect of left lateral abdomen, Negative for vomiting, diarrhea, constipation. 21:50 Back: Positive for flank pain, on the left. 21:50 Skin: Negative for rash. 21:50 Neuro: Negative for headache, numbness, weakness. 21:50 All other systems are negative. Exam: 22:00 Head/Face: Normocephalic, atraumatic. cp 22:00 Constitutional: The patient appears in no acute distress, alert, awake, non-diaphoretic, non-toxic, well developed, well nourished, uncomfortable. 22:00 Eyes: Periorbital structures: appear normal, Conjunctiva: normal, no exudate, no injection, Sclera: no appreciated abnormality, Lids and lashes: appear normal, bilaterally. 22:00 ENT: External ear(s): are unremarkable, Nose: is normal, Mouth: is normal, Posterior pharynx: is normal, airway is patent. 22:00 Chest/axilla: Inspection: normal, Palpation: is normal, no crepitus, no tenderness. 22:00 Cardiovascular: Rate: normal, Rhythm: regular. 22:00 Respiratory: the patient does not display signs of respiratory distress, Respirations: normal, no use of accessory muscles, no retractions, labored breathing, is not present, Breath sounds: are clear throughout, no decreased breath sounds. 22:00 Abdomen/GI: Inspection: obese Bowel sounds: active, all quadrants, Palpation: soft, in all quadrants, moderate abdominal tenderness, in the anterior aspect of left lateral abdomen and posterior aspect of left lateral abdomen, involuntary guarding, is not appreciated. 22:00 Back: pain, that is moderate, of the left mid back, ROM is normal. 22:00 Skin: no rash present. Vital Signs: 21:23 BP 169 / 65; Pulse 63; Resp 19; Temp 98.2; Pulse Ox 95% ; Pain 6/10; ll1 22:00 BP 169 / 65; Pulse 66; Resp 18; Pulse Ox 88% on R/A; vc 23:00 BP 195 / 87; Pulse 66; Resp 18; Pulse Ox 92% on R/A; vc 07/19 00:00 BP 177 / 87; Pulse 62; Resp 19; Temp 97.9(TE); Pulse Ox 91% on R/A; vc 01:00 BP 168 / 74; Pulse 65; Resp 17; Pulse Ox 92% on R/A; vc MDM: 07/18 21:33 Patient medically screened. cp 07/19 00:36 Data reviewed: vital signs, nurses notes, lab test result(s), radiologic studies, CT cp scan. Counseling: I had a detailed discussion with the patient and/or guardian regarding: the historical points, exam findings, and any diagnostic results supporting the discharge/admit diagnosis, lab results, radiology results, the need for outpatient follow up, a urologist, to return to the emergency department if symptoms worsen or persist or if there are any questions or concerns that arise at home. Response to treatment: the patient's symptoms have markedly improved after treatment, and as a result, I will discharge patient. 00:47 ED course: Patient with a narcotic score of 0 and sedative score of 0 according to [place] prescription monitor program website. 07/18 21:42 Order name: Basic Metabolic Panel; Complete Time: 23:37 07/18 23:37 Interpretation: Normal except: CL 109; GLUC 136; BUN 23; CRE 2.07; GFR 32. 07/18 21:42 Order name: CBC with Diff; Complete Time: 22:48 07/18 22:48 Interpretation: Normal except: PLT 147; TOM% 80.9; LYM% 9.9. 07/18 21:42 Order name: Hepatic Function; Complete Time: 23:37 07/18 23:55 Interpretation: Normal except: BILID 0.3; GLOB 4.4; A/G 0.9. 07/18 21:42 Order name: Lipase; Complete Time: 23:37 07/19 00:21 Interpretation: Reviewed. 07/18 21:44 Order name: Urine Microscopic Only; Complete Time: 23:37 07/19 00:21 Interpretation: Normal except: UWBC >50; URBC TNTC. 07/18 22:46 Order name: Urine Dipstick--Ancillary (enter results); Complete Time: 23:37 dh4 07/18 23:55 Interpretation: Normal except: UBLD 3+; UPROT 3+; U NIT POSITIVE; UESTR TRACE. 07/18 21:42 Order name: IV Saline Lock; Complete Time: 23:09 07/18 21:44 Order name: CT Stone Protocol 07/18 23:09 Order name: Urine Culture EDNV 07/18 21:42 Order name: Labs collected and sent; Complete Time: 22:44 07/18 21:44 Order name: Urine Dipstick-Ancillary (obtain specimen); Complete Time: 22:42 Administered Medications: 07/18 22:23 Drug: morphine 4 mg {Note: Given IM in right deltoid per medical provider..} Route: vc IVP; Site: Other; 23:00 Follow up: Response: No adverse reaction; Pain is unchanged, physician notified vc 07/19 00:10 Drug: Magnesium Sulfate 1 grams Route: IVPB; Infused Over: 1 hrs; Site: left forearm; vc 00:10 Drug: Flomax 0.4 mg Route: PO; vc 01:16 Follow up: Response: No adverse reaction vc 00:15 Drug: morphine 4 mg Route: IVP; Site: left forearm; vc 01:00 Follow up: Response: No adverse reaction vc 00:15 Drug: Rocephin 1 grams Route: IV; Rate: calculated rate; Site: left forearm; vc Disposition: 03:26 Co-signature as Attending Physician, Eric Reed MD. [email or web address] Disposition: 07/20/19 00:38 Discharged to Home. Impression: Calculus of kidney with calculus of ureter - left. - Condition is Stable. - Discharge Instructions: Kidney Stones, Renal Colic. - Prescriptions for Tylenol- Codeine #3 300-30 mg Oral Tablet - take 2 tablets by ORAL route every 6 hours As needed; 20 tablet. Flomax 0.4 mg Oral Capsule, Sust. Release 24 hr - take 1 capsule by ORAL route once daily 1/2 hour following the same meal each day; 5 capsule. Zofran 4 mg Oral Tablet - take 1 tablet by ORAL route every 12 hours As needed; 20 tablet. Keflex 500 mg Oral Capsule - take 1 capsule by ORAL route every 8 hours for 10 days; 30 capsule. - Medication Reconciliation Form, Thank You Letter, Antibiotic Education, Prescription Opioid Use form. - Follow up: Majo Gibson MD; When: 1 - 2 days; Reason: Recheck today's complaints. - Problem is new. - Symptoms have improved. Signatures: Dispatcher [employer] EDMS Brandon Parish PA PA cp Calcote, Vanessa, RN RN Ching Aguilar RN RN [facility] Eric Reed MD MD [email or web address] Corrections: (The following items were deleted from the chart) 01:17 00:38 07/20/2019 00:38 Discharged to Home. Impression: Calculus of kidney with calculus vc of ureter - left. Condition is Stable. Prescriptions for Tylenol-Codeine #3 300-30 mg Oral Tablet - take 2 tablets by ORAL route every 6 hours As needed; 20 tablet, Flomax 0.4 mg Oral Capsule, Sust. Release 24 hr - take 1 capsule by ORAL route once daily 1/2 hour following the same meal each day; 5 capsule. and Forms are Medication Reconciliation Form, Thank You Letter, Antibiotic Education, Prescription Opioid Use. Follow up: Majo Gibson; When: 1 - 2 days; Reason: Recheck today's complaints. Problem is new. Symptoms have improved. cp
--- NOTE | 2019-07-20 00:39 | ER ---
Nurse's Notes [facility] Name: Reynaldo Perdomo Age: 73 yrs Sex: Male : 1945 Arrival Date: 07/19/2019 Time: 21:22 Bed 17 Private MD: Diagnosis: Calculus of kidney with calculus of ureter-left Presentation: 07/18 21:23 Chief complaint: Patient states: Sudden onset of left flank pain today at 1800. Denies ll1 N/V/D. No fever. Denies dysuria. States he thinks it is a kidney stone. Coronavirus screen: Proceed with normal triage. Patient denies a cough. Patient denies shortness of breath or difficulty breathing. Patient denies measured and/or subjective temperature greater than 100.4F prior to today's visit. Patient denies travel on a cruise ship or to a country the [facility] currently lists as an affected area. Patient denies contact with known and/or suspected case of COVID-19. Ebola Screen: Patient denies travel to an Ebola-affected area in the 21 days before illness onset. Initial Sepsis Screen: Does the patient meet any 2 criteria? No. Patient's initial sepsis screen is negative. Does the patient have a suspected source of infection? No. Patient's initial sepsis screen is negative. Risk Assessment: Do you want to hurt yourself or someone else? Patient reports no desire to harm self or others. Onset of symptoms was July 19, 2019. 21:23 Method Of Arrival: EMS: [facility] 21:23 Acuity: GIANFRANCO 3 ll1 Triage Assessment: 21:30 General: Appears in no apparent distress. uncomfortable, obese, Behavior is calm, vc cooperative, appropriate for age. Pain: Complains of pain in posterior aspect of left lateral abdomen and anterior aspect of left lateral abdomen and left mid back. Historical: - Allergies: 21:25 No Known Drug Allergies; ll1 - PMHx: 21:25 Hypertension; Kidney stones; [place]; stroke; ll1 - PSHx: 21:25 Hernia repair; Cholecystectomy; cardiac stents x2; ll1 - Immunization history:: Adult Immunizations up to date. - Social history:: Smoking status: Patient denies any tobacco usage or history of. Patient/guardian denies using alcohol, street drugs, tobacco products. Screenin:30 Abuse screen: Denies threats or abuse. Nutritional screening: No deficits noted. vc Tuberculosis screening: No symptoms or risk factors identified. Fall Risk None identified. Assessment: 21:30 General: Appears in no apparent distress. uncomfortable, obese, Behavior is calm, vc cooperative, appropriate for age. Pain: Complains of pain in posterior aspect of left lateral abdomen and anterior aspect of left lateral abdomen and left mid back Pain radiates to groin Pain currently is 8 out of 10 on a pain scale. Quality of pain is described as sharp, shooting, stabbing. Neuro: Level of Consciousness is awake, alert, obeys commands, Oriented to person, place, time, situation, Appropriate for age. Cardiovascular: Capillary refill < 3 seconds Patient's skin is warm and dry. Respiratory: Airway is patent Respiratory effort is even, unlabored, Respiratory pattern is regular, symmetrical. GI: No signs and/or symptoms were reported involving the gastrointestinal system. : Urine is cloudy, brown Reports pain in suprapubic area lower quadrant(s) in lower back. EENT: No signs and/or symptoms were reported regarding the EENT system. Derm: Skin temperature is warm. 22:30 Reassessment: Patient appears in no apparent distress at this time. Patient and/or vc family updated on plan of care and expected duration. Pain level reassessed. 23:30 Reassessment: Patient appears in no apparent distress at this time. Patient and/or vc family updated on plan of care and expected duration. Pain level reassessed. Patient states symptoms have not improved. 07/19 00:30 Reassessment: Patient appears in no apparent distress at this time. Patient and/or vc family updated on plan of care and expected duration. Pain level reassessed. Patient is alert, oriented x 3, equal unlabored respirations, skin warm/dry/pink. Vital Signs: 07/18 21:23 BP 169 / 65; Pulse 63; Resp 19; Temp 98.2; Pulse Ox 95% ; Pain 6/10; ll1 22:00 BP 169 / 65; Pulse 66; Resp 18; Pulse Ox 88% on R/A; vc 23:00 BP 195 / 87; Pulse 66; Resp 18; Pulse Ox 92% on R/A; vc 07/19 00:00 BP 177 / 87; Pulse 62; Resp 19; Temp 97.9(TE); Pulse Ox 91% on R/A; vc 01:00 BP 168 / 74; Pulse 65; Resp 17; Pulse Ox 92% on R/A; vc ED Course: 07/18 21:22 Patient arrived in ED. ll1 21:24 Triage completed. ll1 21:26 Arm band placed on Patient placed in an exam room, on a stretcher. ll1 21:29 Brandon Parish PA is PHCP. cp 21:29 Eric Reed MD is Attending Physician. cp 21:30 Patient has correct armband on for positive identification. Bed in low position. Call vc light in reach. 21:52 Sanam Marvin, JOSE F is Primary Nurse. vc 22:58 CT Stone Protocol In Process Unspecified. EDMS 23:00 Inserted saline lock: 22 gauge in left forearm, using aseptic technique. Blood jp3 collected. 07/19 00:37 Majo Gibson MD is Referral Physician. cp 01:16 No provider procedures requiring assistance completed. IV discontinued, intact, vc bleeding controlled, No redness/swelling at site. Pressure dressing applied. Administered Medications: 07/18 22:23 Drug: morphine 4 mg {Note: Given IM in right deltoid per medical provider..} Route: vc IVP; Site: Other; 23:00 Follow up: Response: No adverse reaction; Pain is unchanged, physician notified vc 07/19 00:10 Drug: Magnesium Sulfate 1 grams Route: IVPB; Infused Over: 1 hrs; Site: left forearm; vc 00:10 Drug: Flomax 0.4 mg Route: PO; vc 01:16 Follow up: Response: No adverse reaction vc 00:15 Drug: morphine 4 mg Route: IVP; Site: left forearm; vc 01:00 Follow up: Response: No adverse reaction vc 00:15 Drug: Rocephin 1 grams Route: IV; Rate: calculated rate; Site: left forearm; vc Outcome: 00:38 Discharge ordered by . cp 01:15 Discharged to home ambulatory. vc 01:15 Condition: good 01:15 Discharge instructions given to patient, Instructed on discharge instructions, follow up and referral plans. no drinking with medication, no driving heavy equipment, medication usage, Demonstrated understanding of instructions, follow-up care, medications, Prescriptions given X 4. 01:17 Patient left the ED. vc Signatures: Dispatcher [employer] Brandon Curtis PA PA cp Pisarski, Jacob jp3 Sanam Marvin RN RN Ching Aguilar RN RN ll1
[2019-07-20 01:33] VITALS: TEMP 97.9
[2019-07-20 01:34] VITALS: BP 168/74; O2SAT 92
--- NOTE | 2019-07-20 10:54 | RAD REPORT ---
EXAM DESCRIPTION: CT - Stone Protocol - 07/20/2019 2:41 am CLINICAL HISTORY: FLANK PAIN COMPARISON: None. TECHNIQUE: CT ABDOMEN PELVIS WITHOUT IV CONTRAST on 07/19/2019 9:44 PM CDT This exam was performed according to our departmental dose-optimization program, which includes autom ated exposure control, adjustment of the mA and/or kV according to patient size and/or use of iterati ve reconstruction technique. FINDINGS: Lower lungs are clear. Abdomen: The liver is normal in appearance. There is no biliary dilatation. Gallbladder is not seen. The pancreas and spleen are normal in appearance. Adrenal glands are normal. Kidneys are mildly atrop hic. There is a 2 mm mid to lower pole left renal calculus. There is mild left hydronephrosis seconda ry to a 6 mm calculus in the lower half of the left ureter. Abdominal aorta is normal in course and caliber without aneurysm. There is no free air. There is no r etroperitoneal adenopathy. Pelvis: There is severe diverticulosis of the distal colon. There is suggestion of a mass within the right side of the urinary bladder measuring 3.7 cm. There is no free fluid. Appendix is not seen. Skeleton: There are no acute osseous findings. No suspicious bony lesions. IMPRESSION: Mildly obstructing 6 mm lower left ureteral calculus. Questionable urinary bladder mass. Consider cystoscopy. Electronically signed by: Car Chandler MD 07/19/2019 11:25 PM CDT Due to temporary technical issues with the PACS/Fluency reporting system, reports are being signed by the in house radiologist as a courtesy to ensure prompt reporting. The interpreting radiologist is f ully responsible for the content of the report.
== END 2019-07-20 01:17 | disposition home or self-care (01) ==
LOC: ER 21:17
DX: N20.2 Calculus of kidney with calculus of ureter (principal); I10 Essential (primary) hypertension; I25.2 Old myocardial infarction; Z87.442 Personal history of urinary calculi; Z95.818 Presence of other cardiac implants and grafts
CPT/HCPCS: 87088; 85025; 87086; 80048; 36415; 80076; 87077; 87186; 83690; 76377; 74176; 99284; J3475; J0696; 81003; 81015

== ENCOUNTER 2020-03-16 17:29 | Inpatient (IN) | payer OTHER ==
[2020-03-16 18:34] LABS: Absolute Lymphocytes (CBC) 0.7 K/uL (0.7-4.9); Basophils % 0.8 % (0-1.3); MPV 8.4 fL (7.6-11.3); RBC Red Blood Cell Count 4.98 M/uL (4.33-5.43)
[2020-03-16] MEDS ORDERED: SIMETHICONE 80 MG TAB ONE (18:34)
[2020-03-16 18:35] LABS: Protime INR 1.08
--- NOTE | 2020-03-16 18:38 | RAD REPORT ---
EXAM DESCRIPTION: RAD - Chest Single View - 03/16/2020 6:31 pm CLINICAL HISTORY: abd pain Chest pain. COMPARISON: CHEST SINGLE VIEW dated 08/30/2014; CHEST SINGLE VIEW dated 10/08/2013; CHEST SINGLE VIEW d ated 10/07/2013; CHEST PA AND LAT 2 VIEW dated 03/08/2012 FINDINGS: Portable technique limits examination quality. The lungs are grossly clear. The heart is upper limit of normal in size. No displaced fractures. IMPRESSION: No acute intrathoracic process suspected.
[2020-03-16 18:52] LABS: ALT/SGPT 27 U/L (12-78); AST/SGOT 24 U/L (15-37); Alkaline Phosphatase 54 U/L (45-117); BUN Blood Urea Nitrogen 24 mg/dL (7-18); Bicarbonate 29 mmol/L (21-32); Bilirubin Direct 0.2 mg/dL (0-0.2); Bilirubin Total 0.9 mg/dL (0.2-1.0); Glucose Level 150 mg/dL (74-106); Lipase 110 U/L (73-393); NT PRO-BNP 245 pg/mL (<125); Potassium 4.7 mmol/L (3.5-5.1); Protein, Total 8.5 g/dL (6.4-8.2); Sodium Level 137 mmol/L (136-145); Troponin (Emerg Dept Use Only) < 0.02 ng/mL (0.0-0.045)
[2020-03-16] MEDS ORDERED: FENTANYL CITR 100 MCG/2 ML ONE (19:17)
[2020-03-16] MEDS ORDERED: PANTOPRAZOLE 40 MG INJ ONE (19:33)
[2020-03-16] MEDS ORDERED: NA CHLORIDE 0.9% 500 ML ONE (19:38)
[2020-03-16] MEDS ORDERED: PROMETHAZINE INJ 25 MG/ML AMP ONE (19:38)
[2020-03-16] MEDS ORDERED: FAMOTIDINE 20 MG/2 ML VIAL IV ONE (19:43)
[2020-03-16] MEDS ORDERED: METOCLOPRAMIDE 10 MG/2mL INJ ONE (21:28)
[2020-03-16] MEDS ORDERED: DIPHENHYDRAMINE 50 MG/ML VIAL ONE (21:28)
[2020-03-16] MEDS ORDERED: NA CHLORIDE 0.9% 50 ML ONE (21:29)
[2020-03-16 22:39] LABS: Blood Morphology Comment NOT SEEN (NOT SEEN); Platelet Estimate ADEQ
--- NOTE | 2020-03-16 23:04 | EDPHYS ---
Physician Documentation [facility] Name: Reynaldo Perdomo Age: 74 yrs Sex: Male : 1945 Arrival Date: 03/16/2020 Time: 17:33 Bed 14 Private MD: ED Physician Austen Paz HPI: 03/16 17:56 This 74 yrs old Male presents to ER via EMS with complaints of Abdominal Pain. snw 17:56 The patient presents with abdominal pain in the epigastric area. Onset: The snw symptoms/episode began/occurred suddenly, 3 hour(s) ago, and became persistent. The symptoms do not radiate. Associated signs and symptoms: Pertinent positives: nausea and vomiting. The symptoms are described as crampy. Severity of pain: At its worst the pain was severe in the emergency department the pain is unchanged. The patient has not experienced similar symptoms in the past. The patient has not recently seen a physician, PCP moved. Historical: - Allergies: 18:03 No Known Allergies; zb - Home Meds: 18:03 amlodipine 5 mg tab once daily [Active]; aspirin 325 mg Oral tab once daily [Active]; zb clopidogrel 75 mg Oral tab 1 tab once daily [Active]; levothyroxine 75 mcg tab once daily [Active]; metoprolol tartrate 50 mg Oral tab 2 times per day [Active]; pantoprazole 40 mg Oral TbEC once daily [Active]; rosuvastatin 20 mg Oral tab once daily [Active]; - PMHx: 18:03 Hypertension; Kidney stones; [place]; stroke; zb - PSHx: 18:03 Hernia repair; Cholecystectomy; zb - Immunization history:: Adult Immunizations up to date. - Social history:: Smoking status: Patient/guardian denies using tobacco, but has a distant history of tobacco abuse. ROS: 17:53 Constitutional: Negative for fever, chills, and weight loss, Eyes: Negative for injury, snw pain, redness, and discharge, ENT: Negative for injury, pain, and discharge, Neck: Negative for injury, pain, and swelling, Cardiovascular: Negative for chest pain, palpitations, and edema, Respiratory: Negative for shortness of breath, cough, wheezing, and pleuritic chest pain, Back: Negative for injury and pain, : Negative for injury, bleeding, discharge, and swelling, MS/Extremity: Negative for injury and deformity, Skin: Negative for injury, rash, and discoloration, Neuro: Negative for headache, weakness, numbness, tingling, and seizure. 17:53 Abdomen/GI: Positive for abdominal pain, nausea and vomiting, abdominal cramps, Negative for diarrhea, constipation. Exam: 17:53 Constitutional: This is a well developed, well nourished patient who is awake, alert, snw and in no acute distress. Head/Face: Normocephalic, atraumatic. Eyes: Pupils equal round and reactive to light, extra-ocular motions intact. Lids and lashes normal. Conjunctiva and sclera are non-icteric and not injected. Cornea within normal limits. Periorbital areas with no swelling, redness, or edema. ENT: Nares patent. No nasal discharge, no septal abnormalities noted. Tympanic membranes are normal and external auditory canals are clear. Oropharynx with no redness, swelling, or masses, exudates, or evidence of obstruction, uvula midline. Mucous membranes moist. Neck: Trachea midline, no thyromegaly or masses palpated, and no cervical lymphadenopathy. Supple, full range of motion without nuchal rigidity, or vertebral point tenderness. No Meningismus. Chest/axilla: Normal chest wall appearance and motion. Nontender with no deformity. No lesions are appreciated. Cardiovascular: Regular rate and rhythm with a normal S1 and S2. No gallops, murmurs, or rubs. Normal PMI, no JVD. No pulse deficits. Respiratory: Lungs have equal breath sounds bilaterally, clear to auscultation and percussion. No rales, rhonchi or wheezes noted. No increased work of breathing, no retractions or nasal flaring. Back: No spinal tenderness. No costovertebral tenderness. Full range of motion. Skin: Warm, dry with normal turgor. Normal color with no rashes, no lesions, and no evidence of cellulitis. MS/ Extremity: Pulses equal, no cyanosis. Neurovascular intact. Full, normal range of motion. Neuro: Awake and alert, GCS 15, oriented to person, place, time, and situation. Cranial nerves II-XII grossly intact. Motor strength 5/5 in all extremities. Sensory grossly intact. Cerebellar exam normal. Normal gait. Psych: Awake, alert, with orientation to person, place and time. Behavior, mood, and affect are within normal limits. 17:53 Cardiovascular: Regular rate and rhythm with a normal S1 and S2. No gallops, murmurs, or rubs. Normal PMI, no JVD. No pulse deficits. right lower ext edema s/p CVA, no worse per pt report 17:53 Abdomen/GI: Inspection: distension, that is mild, Bowel sounds: normal, Palpation: moderate abdominal tenderness, severe abdominal tenderness, in the right upper quadrant and left upper quadrant. Vital Signs: 17:50 BP 174 / 77; Pulse 59; Resp 20; Temp 98.7; Pulse Ox 98% on R/A; Weight 124.74 kg; zb Height 5 ft. 11 in. (180.34 cm); Pain 8/10; 18:43 BP 156 / 55 RA Supine (auto/reg); Pulse 76; Resp 14; Pulse Ox 95% on R/A; dh4 18:43 BP 162 / 71 RA Sitting (auto/reg); Pulse 91; Resp 16; Pulse Ox 97% on R/A; dh4 18:43 BP 140 / 76 RA Standing (auto/reg); Pulse 98; Resp 18; Pulse Ox 97% on R/A; dh4 19:47 BP 188 / 81; Pulse 97; Resp 20; Pulse Ox 97% on R/A; zb 21:59 BP 98 / 83; Pulse 63; Resp 16; Pulse Ox 97% on R/A; zb 23:25 BP 167 / 96; Pulse 64; Pulse Ox 95% on R/A; dh4 03/17 00:40 BP 174 / 69; Pulse 63; Resp 19; Pulse Ox 95% ; rr5 03/16 17:50 Body Mass Index 38.35 (124.74 kg, 180.34 cm) zb MDM: 03/16 18:00 Patient medically screened. snw 20:05 Data reviewed: vital signs, nurses notes. Data interpreted: Pulse oximetry: on room air snw is 97 %. Interpretation: normal. Counseling: I had a detailed discussion with the patient and/or guardian regarding: the historical points, exam findings, and any diagnostic results supporting the discharge/admit diagnosis, the presence of at least one elevated blood pressure reading (>120/80) during this emergency department visit, lab results. Transition of care: After a detail discussion of the patient's case, care is transferred to Ross LAWRENCE. 23:00 ED course: I discussed the patient with Chai thompson and Dr. Buckley. Will admit to Dr. suzy Rea service. . 03/16 17:52 Order name: Basic Metabolic Panel; Complete Time: 19:22 snw 03/16 17:52 Order name: CBC with Diff; Complete Time: 22:50 snw 03/16 17:52 Order name: LFT's; Complete Time: 19:22 snw 03/16 17:52 Order name: Magnesium; Complete Time: 19:22 snw 03/16 17:52 Order name: NT PRO-BNP; Complete Time: 19:22 snw 03/16 17:52 Order name: PT-INR; Complete Time: 18:44 snw 03/16 17:52 Order name: Troponin (emerg Dept Use Only); Complete Time: 19:22 snw 03/16 17:52 Order name: Lipase; Complete Time: 19:22 snw 03/16 22:35 Order name: Manual Differential; Complete Time: 22:50 EDNJ 03/16 23:26 Order name: COVID-19 tt3 03/17 02:34 Order name: SARS-COV-2 RT PCR EDNJ 03/17 05:50 Order name: Comprehensive Metabolic Panel EDNJ 03/17 05:50 Order name: Phosphorus EDNJ 03/17 05:50 Order name: T4 Free EDMS 03/16 17:52 Order name: XRAY Chest (1 view); Complete Time: 18:44 snw 03/16 20:39 Order name: Abdomen EDMS 03/17 05:50 Order name: Magnesium EDMS 03/17 05:50 Order name: Thyroid Stimulating Hormone EDMS 03/17 06:26 Order name: CBC with Automated Diff EDMS 03/17 09:42 Order name: RAD EDMS 03/17 11:03 Order name: CBC Smear Scan EDMS 03/17 16:09 Order name: Urinalysis EDMS 03/17 16:25 Order name: Urine Microscopic Only EDMS 03/16 17:52 Order name: EKG; Complete Time: 17:53 snw 03/16 17:52 Order name: Cardiac monitoring; Complete Time: 18:21 snw 03/16 17:52 Order name: EKG - Nurse/Tech; Complete Time: 18:21 03/16 17:52 Order name: IV Saline Lock; Complete Time: 18:21 03/16 17:52 Order name: Labs collected and sent; Complete Time: 18:21 03/16 17:52 Order name: O2 Per Protocol; Complete Time: 18:04 03/16 17:52 Order name: O2 Sat Monitoring; Complete Time: 18:03/16 22:51 Order name: NG Tube; Complete Time: 00:41 [facility] Administered Medications: 18:24 Drug: Simethicone 240 mg Route: PO; zb 21:31 Follow up: Response: No adverse reaction zb 19:07 Drug: fentaNYL (PF) 25 mcg Route: IVP; Site: right upper arm; zb 21:31 Follow up: Response: No adverse reaction; Pain is decreased zb 19:27 CANCELLED (Other Intervention Used): ProTONIX 40 mg IVP once la1 19:28 Drug: Pepcid 20 mg Route: IVP; Site: right upper arm; zb 21:31 Follow up: Response: No adverse reaction zb 19:28 Drug: Phenergan 12.5 mg Route: IVP; Site: right upper arm; zb 21:31 Follow up: Response: No adverse reaction; Nausea is decreased zb 19:46 Drug: NS 0.9% 500 ml Route: IV; Rate: bolus; Site: right upper arm; zb 21:30 Drug: diphenhydrAMINE 25 mg Route: IVP; Site: right upper arm; zb 21:30 Drug: Reglan 10 mg Route: IVP; Site: right upper arm; zb 03/17 00:50 Drug: NS 0.9% 1000 ml Route: IV; Rate: 125 ml/hr; Site: right upper arm; rr5 01:27 Follow up: Response: No adverse reaction; IV Status: Infusion continued upon admission rr5 Disposition: 03/16/20 23:03 Hospitalization ordered by Bora Herrmann for Inpatient Admission. Preliminary diagnosis is Small Bowel Obstruction. - Bed requested for Telemetry/MedSurg (Inpatient). - Status is Inpatient Admission. ss - Condition is Stable. - Problem is new. - Symptoms are unchanged. Addendum: 03/19/2020 07:15 Co-signature as Attending Physician, Austen Paz MD. r n Signatures: Dispatcher [employer] EDNJ Castro Ginger, CLINICAL UNIT EDUCATOR-C CLINICAL UNIT EDUCATOR-Csnw Ross Rogers PA PA [facility] Austen Paz MD MD rn Smirch, Shelby, RN RN ss Chai Thompson, CLINICAL UNIT EDUCATOR-C CLINICAL UNIT EDUCATOR-Cla1 Carolyn Bueno, RN RN cg Sergei Coreas, RN RN ja1 Alistair Jones RN RN rr5 Isatu Garibay RN RN zb Corrections: (The following items were deleted from the chart) 03/16 19:27 17:53 ProTONIX 40 mg IVP once ordered. snw la1 19:27 19:27 ProTONIX 40 mg IVP once ordered. la1 la1 20:39 17:53 Abdomen Pelvis W Con+CT.RAD.BRZ ordered. EDNJ EDMS 23:58 23:03 Hospitalization Ordered by Bora Herrmann MD for Inpatient Admission. Preliminary cg diagnosis is Small Bowel Obstruction. Bed requested for Telemetry/MedSurg (Inpatient). Status is Inpatient Admission. Condition is Stable. Problem is new. Symptoms are unchanged. [facility] 03/17 17:05 03/16 23:58 03/16/2020 23:03 Hospitalization Ordered by Bora Herrmann MD for Inpatient ja1 Admission. Preliminary diagnosis is Small Bowel Obstruction. Bed requested for [facility] ER HOLD. Status is Inpatient Admission. Condition is Stable. Problem is new. Symptoms are unchanged. 03/17 17:53 17:05 03/16/2020 23:03 Hospitalization Ordered by Bora Herrmann MD for Inpatient ss Admission. Preliminary diagnosis is Small Bowel Obstruction. Bed requested for Telemetry/MedSurg (Inpatient). Status is Inpatient Admission. Condition is Stable. Problem is new. Symptoms are unchanged. ja1
--- NOTE | 2020-03-16 23:04 | ER ---
Nurse's Notes [facility] Name: Reynaldo Perdomo Age: 74 yrs Sex: Male : 1945 Arrival Date: 03/16/2020 Time: 17:33 Bed 14 Private MD: Diagnosis: Small Bowel Obstruction Presentation: 03/16 17:34 Acuity: GIANFRANCO 3 zb 17:50 Chief complaint: EMS states: pt had chineses food at 1100, started throwing up at 1200. zb pt states he has vomited a total of 3 times. c/o abdominal pain RUQ and LUQ, mild SOB and weakness. denies diarrhea. Coronavirus screen: difficulty breathing, vomiting. Ebola Screen: No symptoms or risks identified at this time. Initial Sepsis Screen: Does the patient meet any 2 criteria? No. Patient's initial sepsis screen is negative. Does the patient have a suspected source of infection? No. Patient's initial sepsis screen is negative. Risk Assessment: Do you want to hurt yourself or someone else? Patient reports no desire to harm self or others. Onset of symptoms. 17:50 Method Of Arrival: EMS: [facility] zb Triage Assessment: 17:56 General: Appears in no apparent distress. uncomfortable. General: Behavior is calm, zb cooperative, appropriate for age, Reports fatigue for Denies fever, feeling ill. Pain: Complains of pain in left upper quadrant and right upper quadrant Pain does not radiate. Pain currently is 8 out of 10 on a pain scale. Quality of pain is described as aching, crampy, sharp, throbbing, Pain began 4 hours ago. EENT: No signs and/or symptoms were reported regarding the EENT system. Neuro: Level of Consciousness is awake, alert, obeys commands, Oriented to person, place, time, situation. Cardiovascular: Reports shortness of breath, Capillary refill < 3 seconds in bilateral fingers Patient's skin is warm and dry. Edema is 2+ to left ankle, left foot, right ankle and right foot. Respiratory: Airway is patent Respiratory effort is even, unlabored, Respiratory pattern is regular, symmetrical. GI: Abdomen is round distended, obese, Bowel sounds present X 4 quads. Abdomen is tender to palpation in right upper quadrant and left upper quadrant Guarding noted in right upper quadrant and left upper quadrant. : No signs and/or symptoms were reported regarding the genitourinary system. Derm: Skin is intact, is healthy with good turgor, Skin is clammy, Skin is normal, Skin temperature is warm. Musculoskeletal: Circulation, motion, and sensation intact. Range of motion: intact in all extremities. Historical: - Allergies: 18:03 No Known Allergies; zb - Home Meds: 18:03 amlodipine 5 mg tab once daily [Active]; aspirin 325 mg Oral tab once daily [Active]; zb clopidogrel 75 mg Oral tab 1 tab once daily [Active]; levothyroxine 75 mcg tab once daily [Active]; metoprolol tartrate 50 mg Oral tab 2 times per day [Active]; pantoprazole 40 mg Oral TbEC once daily [Active]; rosuvastatin 20 mg Oral tab once daily [Active]; - PMHx: 18:03 Hypertension; Kidney stones; IN; stroke; zb - PSHx: 18:03 Hernia repair; Cholecystectomy; zb - Immunization history:: Adult Immunizations up to date. - Social history:: Smoking status: Patient/guardian denies using tobacco, but has a distant history of tobacco abuse. Screenin:00 Abuse screen: Denies threats or abuse. Denies injuries from another. Nutritional zb screening: No deficits noted. Tuberculosis screening: No symptoms or risk factors identified. Fall Risk No fall in past 12 months (0 pts). No secondary diagnosis (0 pts). IV access (20 points). Ambulatory Aid- Crutches/Cane/Walker (15 pts). Gait- Normal/Bed Rest/Wheelchair (0 pts) Mental Status- Oriented to own ability (0 pts). Total Mo Fall Scale indicates Low Risk Score (25-44 pts). Fall prevention measures have been instituted. Side Rails Up X 2 Placed close to Nursing Station Frequent Obs/Assesments occuring As available Patient and Family Educated on Fall Prevention Program and strategies. Assessment: 18:03 Reassessment: see triage note. zb 19:20 Reassessment: Patient appears in no apparent distress at this time. Patient and/or zb family updated on plan of care and expected duration. Pain level reassessed. Patient is alert, oriented x 3, equal unlabored respirations, skin warm/dry/pink. episode of n/v notified ECP medication administered. 21:02 Reassessment: Patient appears in no apparent distress at this time. Patient and/or zb family updated on plan of care and expected duration. Pain level reassessed. Patient is alert, oriented x 3, equal unlabored respirations, skin warm/dry/pink. waiting for patient to completed oral contrast. notified PCP for more nausea medication. 21:43 Reassessment: ECP at bedside discussing plan of care. zb 22:43 Reassessment: Patient appears in no apparent distress at this time. Patient and/or zb family updated on plan of care and expected duration. Pain level reassessed. Patient is alert, oriented x 3, equal unlabored respirations, skin warm/dry/pink. pt at beside. given urinal. 23:43 Reassessment: Patient appears in no apparent distress at this time. Patient and/or zb family updated on plan of care and expected duration. Pain level reassessed. Patient is alert, oriented x 3, equal unlabored respirations, skin warm/dry/pink. 03/17 00:36 Reassessment: NG tube placed. 16F R nare. zb Vital Signs: 03/16 17:50 BP 174 / 77; Pulse 59; Resp 20; Temp 98.7; Pulse Ox 98% on R/A; Weight 124.74 kg; zb Height 5 ft. 11 in. (180.34 cm); Pain 10/14; 18:43 BP 156 / 55 RA Supine (auto/reg); Pulse 76; Resp 14; Pulse Ox 95% on R/A; dh4 18:43 BP 162 / 71 RA Sitting (auto/reg); Pulse 91; Resp 16; Pulse Ox 97% on R/A; dh4 18:43 BP 140 / 76 RA Standing (auto/reg); Pulse 98; Resp 18; Pulse Ox 97% on R/A; dh4 19:47 BP 188 / 81; Pulse 97; Resp 20; Pulse Ox 97% on R/A; zb 21:59 BP 98 / 83; Pulse 63; Resp 16; Pulse Ox 97% on R/A; zb 23:25 BP 167 / 96; Pulse 64; Pulse Ox 95% on R/A; dh4 03/17 00:40 BP 174 / 69; Pulse 63; Resp 19; Pulse Ox 95% ; rr5 03/16 17:50 Body Mass Index 38.35 (124.74 kg, 180.34 cm) zb ED Course: 03/16 17:33 Patient arrived in ED. zb 17:34 Triage completed. zb 17:35 Ginger Erazo FNP-C is PHCP. snw 17:35 Austen Paz MD is Attending Physician. snw 17:49 Isatu Garibay, JOSE F is Primary Nurse. zb 18:00 Arm band placed on left wrist. zb 18:01 Patient has correct armband on for positive identification. Placed in gown. Bed in low zb position. Call light in reach. Pulse ox on. NIBP on. Door closed. Noise minimized. 18:22 Inserted saline lock: 20 gauge in right ,using aseptic technique. upper arm. dh4 18:31 XRAY Chest (1 view) In Process Unspecified. EDMS 20:04 PHCP role handed off by Ginger Erazo FNP-C jmm 20:04 Ross Rogers PA is PHCP. jmm 22:29 Abdomen In Process Unspecified. EDMS 23:02 Bora Herrmann MD is Hospitalizing Provider. [facility] 03/17 00:25 NGT: inserted 16 Fr. via right nare. verified placement of air over stomach, verified zb return of gastric contents, to intermittent suction. Returned gastric contents. Patient tolerated well. 00:51 No provider procedures requiring assistance completed. Patient admitted, IV remains in rr5 place. intact, No redness/swelling at site. Administered Medications: 03/16 18:24 Drug: Simethicone 240 mg Route: PO; zb 21:31 Follow up: Response: No adverse reaction zb 19:07 Drug: fentaNYL (PF) 25 mcg Route: IVP; Site: right upper arm; zb 21:31 Follow up: Response: No adverse reaction; Pain is decreased zb 19:27 CANCELLED (Other Intervention Used): ProTONIX 40 mg IVP once la1 19:28 Drug: Pepcid 20 mg Route: IVP; Site: right upper arm; zb 21:31 Follow up: Response: No adverse reaction zb 19:28 Drug: Phenergan 12.5 mg Route: IVP; Site: right upper arm; zb 21:31 Follow up: Response: No adverse reaction; Nausea is decreased zb 19:46 Drug: NS 0.9% 500 ml Route: IV; Rate: bolus; Site: right upper arm; zb 21:30 Drug: diphenhydrAMINE 25 mg Route: IVP; Site: right upper arm; zb 21:30 Drug: Reglan 10 mg Route: IVP; Site: right upper arm; zb 03/17 00:50 Drug: NS 0.9% 1000 ml Route: IV; Rate: 125 ml/hr; Site: right upper arm; rr5 01:27 Follow up: Response: No adverse reaction; IV Status: Infusion continued upon admission rr5 Output: 00:40 Gastric: 1000ml (NGT); Total: 1000ml. rr5 Outcome: 03/16 23:03 Decision to Hospitalize by Provider. suzy 03/17 01:26 Admitted to ER Hold. Please see [place] for further documentation. rr5 Condition: stable Instructed on the need for admit. 17:53 Patient left the ED. ss Signatures: Dispatcher [employer] EDMS Ginger Erazo, KALAC MEDICAL REVIEWER-CsnRoss Noonan PA PA jmm Smirch, Shelby, RN RN Alistair Jones RN RN rr5 Rex Shah [facility] Isatu Garibay RN RN zb Attema, Lee FNP-Cla1 Corrections: (The following items were deleted from the chart) 03/16 18:23 17:56 Cardiovascular: Reports shortness of breath, Capillary refill < 3 seconds in zb bilateral fingers Patient's skin is warm and dry. zb
--- NOTE | 2020-03-16 23:41 | P.HP ---
Certification for Inpatient Patient admitted to: Inpatient With expected LOS: >2 Midnights Patient will require the following post-hospital care: None Practitioner: I am a practitioner with admitting privileges, knowledge of patient current condition, hospital course, and medical plan of care. Services: Services provided to patient in accordance with Admission requirements found in Title 42 Section 412.3 of the Code of Federal Regulations Patient History Date of Service: 03/16/20 History of Present Illness: 74-year-old male with history of CAD, CVA, hypertension presents emergency department for abdominal distention and vomiting, patient does report a history of abdominal surgeries including hernia repair, cholecystectomy, appendectomy. Patient noticed abdominal swelling that started this morning with vomiting beginning around noon. Abdomen significant distended, CT demonstrates high-grade small-bowel obstruction, NG tube inserted in the emergency department general surgery consulted. Patient appears stable at this time, will admit for further evaluation and management. Patient prefers DNR status. Allergies No Known Drug Allergies Allergy (Verified 09/09/14 08:29) Unknown No Known Aller Allergy (Uncoded 11/12/16 23:29) Unknown No Known Allergies Allergy (Uncoded 10/29/17 21:03) Unknown Home Medications: Atorvastatin Calcium [Lipitor*] 40 mg PO BEDTIME #30 tab 06/14/13 lisinopriL [Prinivil*] 5 mg PO BID #60 tab 06/14/13 Cyanocobalamin (Vitamin B-12) [B-12] 1,500 mcg PO DAILY 10/07/13 Levothyroxine [Synthroid*] 25 mcg PO [id number] 10/07/13 Clopidogrel Bisulfate [Plavix*] 75 mg PO DAILY #30 tablet 10/09/13 Metoprolol Tartrate [Lopressor*] 50 mg PO Q12HR #60 tab 10/09/13 Nitroglycerin [Nitrostat*] 0.4 mg SL UD PRN #1 tab 10/09/13 Aspirin 325 mg PO DAILY #30 tablet 09/13/14 Pantoprazole [Protonix Tab*] 40 mg PO BID #60 tab 09/13/14 - Past Medical/Surgical History Diabetic: No -: HTN -: CVA -: HYPERLIPIDEMA -: HERNIA REPAIR 2010 -: CHOLICYSTECTOMY -: REMOVAL OF SMALL INTESTINE Psychosocial/ Personal History: Patient is retired and lives alone - Family History Family History: Reviewed- Non-Contributory - Social History Smoking Status: Never smoker Alcohol use: No CD- Drugs: No Caffeine use: No Place of Residence: Home Review of Systems 10-point ROS is otherwise unremarkable Gastrointestinal: Nausea, Vomiting, Abdominal Pain, Distention Physical Examination - Physical Exam General: Alert, In no apparent distress HEENT: Atraumatic, PERRLA, Mucous membr. moist/pink Neck: Supple, 2+ carotid pulse no bruit, No LAD Respiratory: Clear to auscultation bilaterally, Normal air movement Cardiovascular: Regular rate/rhythm, Normal S1 S2 Gastrointestinal: Hypoactive, No rebound, No guarding, Distended, Tenderness (Diffuse abdominal tenderness) Musculoskeletal: No tenderness Integumentary: No rashes Neurological: Normal speech, Normal strength at 5/5 x4 extr, Normal tone, Normal affect Lymphatics: No axilla or inguinal lymphadenopathy - Studies Laboratory Data (last 24 hrs) 03/16/20 18:17: PT 12.7 H, INR 1.08 03/16/20 18:17: WBC 8.6, Hgb 15.1, Hct 44.0, Plt Count 145 L 03/16/20 18:17: Sodium 137, Potassium 4.7, BUN 24 H, Creatinine 1.76 H, Glucose 150 H, Magnesium 2.0, Total Bilirubin 0.9, AST 24, ALT 27, Alkaline Phosphatase 54, Lipase 110 Assessment and Plan - Plan Assessment High-grade mechanical small bowel obstruction Chronic kidney disease Hypertension Hyperlipidemia History of CAD and CVA Plan High-grade mechanical small bowel obstruction: NGT 2 LIWS, NPO, general surgery consult in place, continue with IV hydration overnight, p.r.n. pain and nausea medications. Abdominal x-ray in the morning. DVT prophylaxis with SCDs. Chronic kidney disease: Continue with IV hydration overnight, patient's renal function is similar to baseline. Continue to monitor. Hypertension: Hold home medications as patient is NPO at this time, restart when appropriate. Hyperlipidemia: Hold home medications as patient is NPO at this time, restart when appropriate. History of CAD and CVA: Hold home medications as patient is NPO at this time, restart when appropriate. Discharge Plan: Home Plan to discharge in: Greater than 2 days - Advance Directives Does patient have a Living Will: No Does patient have a Durable POA for Healthcare: No - Code Status/Comfort Care Code Status Assessed: Yes (Full code) Critical Care: No Time Spent Managing Pts Care (In Minutes): 55
[2020-03-16] MEDS ORDERED: ONDANSETRON 4 MG/2 ML VIAL IV PRN (23:54)
[2020-03-16] MEDS: NA CHLORIDE 0.9% 1,000 ML IV SCH (23:54)
[2020-03-16] MEDS ORDERED: ACETAMINOPHEN 650MG/RECT SUPP PR PRN (23:54)
[2020-03-16] MEDS ORDERED: MORPHINE 2 MG/ML SYR IV PRN (23:54)
[2020-03-17] MEDS ORDERED: LIDOCAINE VISCOUS 2% SOLN 15 ML UDC ONE ×2 (00:18→06:10)
[2020-03-17] MEDS ORDERED: NA CHLORIDE 0.9% 1,000 ML ONE (00:57)
[2020-03-17 03:20] VITALS: BMI 38.3
[2020-03-17 05:50] LABS: Albumin 3.7 g/dL (3.4-5.0); Magnesium 2.1 mg/dL (1.8-2.4); Phosphorus 3.2 mg/dL (2.5-4.9); Potassium 4.2 mmol/L (3.5-5.1); Protein, Total 7.9 g/dL (6.4-8.2); Thyroid Stimulating Hormone 3.11 uIU/mL (0.360-3.740)
[2020-03-17 06:21] LABS: Absolute Lymphocytes (CBC) 1.5 K/uL (0.7-4.9); Basophils % 0.4 % (0-1.3); Hematocrit 44.5 % (39.6-49.0); Lymphocytes % 13.6 % (15.3-44.8); MPV 8.6 fL (7.6-11.3); RBC Red Blood Cell Count 5.02 M/uL (4.33-5.43)
--- NOTE | 2020-03-17 07:21 | EKG ---
Test Date: 2020-03-16 Test Time: 18:13:20 Urologist Md: STONEY MEASUREMENT RESULTS: Intervals: Rate: 59 CT: 168 QRSD: 84 QT: 426 QTc: 421 [place]: P: 69 CT: 168 QRS: 22 T: 82 INTERPRETIVE STATEMENTS: Sinus bradycardia Possible Left atrial enlargement Nonspecific T wave abnormality Abnormal ECG Compared to ECG 09/09/2014 03:33:42 T-wave abnormality now present Sinus rhythm no longer present Electronically Signed On 03-17-20 07:20:22 COAL FEEDER OPERATOR by Esteban Lowery
[2020-03-17] MEDS: NA CHLORIDE 0.9% 1,000 ML IV SCH ×3 (07:54→23:54)
[2020-03-17] MEDS ORDERED: MORPHINE 2 MG/ML SYR ONE (09:13)
--- NOTE | 2020-03-17 09:41 | RAD REPORT ---
EXAM DESCRIPTION: RAD - Abdomen W Erect - 03/17/2020 8:30 am CLINICAL HISTORY: Abdominal pain FINDINGS: A nasogastric tube within the distal stomach Several loops of small bowel are mildly to moderately dilated without significant change from March 16 compatible with an obstruction Air and stool is present within portions of the colon No free air noted
[2020-03-17] MEDS ORDERED: PNEUMOCOCCAL VACCINE 0.5 ML IMVAC ONE (11:00)
[2020-03-17 11:02] LABS: Blood Morphology Comment NOT SEEN (NOT SEEN); Platelet Estimate ADEQ; Platelets, Giant FEW; White Blood Cell Scan OK (OK)
--- NOTE | 2020-03-17 12:44 | RAD REPORT ---
EXAM DESCRIPTION: CT - Abdomen Pelvis Wo Contrast - 03/17/2020 8:57 am CLINICAL HISTORY: ABD PAIN COMPARISON: 06/21/2018. TECHNIQUE: CT ABDOMEN PELVIS WITHOUT IV CONTRAST on 03/16/2020 5:52 PM HEALTH OUTREACH WORKER This exam was performed according to our departmental dose-optimization program, which includes autom ated exposure control, adjustment of the mA and/or kV according to patient size and/or use of iterati ve reconstruction technique. FINDINGS: The heart is mildly enlarged. Abdomen: Liver is fatty in attenuation. There is no biliary dilatation. Spleen is mildly enlarged at 14.8 cm and is stomach is grossly distended. Adrenal glands are normal. Kidneys are moderately atroph ic. Abdominal aorta is normal in course and caliber without aneurysm. There is no free air. There is no r etroperitoneal adenopathy. Pelvis: There is severe diverticulosis of the distal colon. Distal descending colonic resection and a nastomosis was performed. There are multiple dilated anterior small bowel loops likely to the level o f the small bowel suture line. IMPRESSION: Urinary bladder is unremarkable. There is no free fluid. A ppendectomy was performed. Skeleton: There are no acute osseous findings. No suspicious bony lesions. IMPRESSION: Suspect high-grade small bowel obstruction. Electronically signed by: Car Chandler MD 03/16/2020 10:43 PM HEALTH OUTREACH WORKER Due to temporary technical issues with the PACS/Fluency reporting system, reports are being signed by the in house radiologists without review as a courtesy to insure prompt reporting. The interpreting radiologist is fully responsible for the content of the report.
--- NOTE | 2020-03-17 14:40 | CON ---
Date of Consultation: 03/17/2020 Diagnosis: Small bowel obstruction. History Of Present Illness: This is the case of a 74-year-old patient, who comes to us complaining o f nausea, vomiting, abdominal distention for the last day. He was eating a lot of broccoli. He thin ks something got stuck in his abdomen and since he could not improve and he came to the ER. He is no t new to surgical intervention. In the past, he has multiple surgeries include appendectomies, damir cystectomies, hernias repair with midline incisions. He does not remember the last colonoscopy, alth ough he was advised to do so. He denies any dysuria, hematuria, hematochezia, melena. Review of Systems: Ten points otherwise unremarkable. Medications: Reviewed including Plavix, aspirin. Social History: He does not smoke. He does drink alcohol. Physical Examination: General: The patient is awake, alert. HEENT: Pupils anicteric. NG tube in place. Neck: Supple. Chest: Clear. Abdomen: Softly distended. No guarding or rebound. Mild generalized tenderness. No peritonitis. Rectal: Deferred. Extremities: Good capillary refill. Laboratory Data: Blood work shows WBC count of 11, hemoglobin of 15, platelets of 166 with chloride is 104, creatinine is 1.73. CAT scan of abdomen and pelvis, official report still pending, although it shows small bowel obstruction. We are awaiting for the final result. Assessment: This is a 74-year-old patient with small bowel obstruction. He has a lot of broccoli ye sterday and now he developed this problem. He has multiple surgeries in the past that include also a s per the patient small bowel resection done in this institution, placing claim many years ago by Dr. Gordon, but we have no Dr. Gordon in this place or documentation of that. In that case, we still carl ve the same plan. He has the options of laparotomy, possible resection, possible ostomy with benefit s, alternatives, and risks including, but not limited to infection, bleeding, damage to adjacent stru ctures, anesthesia complication, recurrence, NE, and even . At the same time, he wants to try c onservative treatment and we agreed with him as long as clinically he continued to improve. We are g oing to continue the NG tube, bowel rest, ambulation, and if by any chance that treatment fail, then he will allow us to do the laparotomy. RUTHY/SILVIO Voice ID: [id number] Report ID: [id number]
[2020-03-17 16:01] LABS: Urine Appearance CLOUDY; Urine Bilirubin NEGATIVE (NEG); Urine Blood 2+ (NEG); Urine Color YELLOW; Urine Glucose NEGATIVE (NEG); Urine Protein 1+ (NEG); Urine pH 5.5 (5.0-7.0)
[2020-03-17 16:08] LABS: Urine Microscopic Reflex ORDER UMIC
[2020-03-17 16:24] LABS: Urine Bacteria 20-50 /HPF (NONE SEEN)
[2020-03-17 16:25] LABS: Urine Amorphous Sediment 1+ /HPF (NONE SEEN)
[2020-03-18] MEDS ORDERED: HYDRALAZINE HCL 20 MG/ML VIAL IV ONE (00:32)
[2020-03-18] MEDS: NA CHLORIDE 0.9% 1,000 ML IV SCH ×2 (03:44→16:37)
[2020-03-18 04:43] LABS: Basophils % 0.9 % (0-1.3); Hematocrit 41.5 % (39.6-49.0); Lymphocytes % 14.7 % (15.3-44.8); MPV 8.3 fL (7.6-11.3); RBC Red Blood Cell Count 4.64 M/uL (4.33-5.43)
[2020-03-18 05:01] LABS: Albumin 3.5 g/dL (3.4-5.0); Bilirubin Total 1.1 mg/dL (0.2-1.0); Magnesium 2.1 mg/dL (1.8-2.4); Potassium 3.6 mmol/L (3.5-5.1); Protein, Total 7.3 g/dL (6.4-8.2)
[2020-03-18] MEDS ORDERED: POTASSIUM PHOS IN 0.9 % NACL 15 MMOL/250 ML BAG IV ONE (08:00)
[2020-03-18] MEDS ORDERED: CLONIDINE 0.2 MG/PATCH TD SCH (09:00)
[2020-03-18] MEDS ORDERED: CLONIDINE 0.1 MG/PATCH TD SCH (09:00)
--- NOTE | 2020-03-18 09:27 | RAD REPORT ---
EXAM DESCRIPTION: RAD - Abdomen W Erect - 03/18/2020 8:57 am CLINICAL HISTORY: SBO COMPARISON: Abdomen W Erect dated 03/17/2020; Abdomen Pelvis Wo Contrast dated 03/16/2020 TECHNIQUE: Supine and upright views of the abdomen were obtained. FINDINGS: Tip of the NG tube is in the gastric fundus. Side hole of the NG tube is in the distal eso phagus near the GE junction. Stomach is decompressed. Air and stool are scattered in nondilated colon . Multiple dilated small bowel loops are again identified. Pattern is not substantially different fro m the CT study. No free air or pneumatosis. IMPRESSION: Small bowel dilatation is still present not substantially different from the CT study. NG tube tip is in the gastric fundus with the side hole in the distal esophagus near the GE junction. Stomach is decompressed.
[2020-03-18] MEDS ORDERED: METOPROLOL TARTRATE 5 MG/5 ML INJ IV STA (09:32)
--- NOTE | 2020-03-18 09:47 | P.PN ---
Subjective Date of Service: 03/17/20 Patient states that he has had flatus. He is starting to feel better. If he continues to have flatus and moves his bowel he may need to get NG tube removed. Review of Systems 10-point ROS is otherwise unremarkable Physical Examination - Vital Signs Temperature: 97.6 F Blood Pressure: 211/77 Pulse: 79 Respirations: 18 Pulse Ox (%): 93 - Physical Exam General: Alert, In no apparent distress, Oriented x3 Respiratory: Clear to auscultation bilaterally, Normal air movement Cardiovascular: Regular rate/rhythm, Normal S1 S2 Gastrointestinal: Normal bowel sounds, No guarding, Distended, Rebound Musculoskeletal: No clubbing, No swelling, No tenderness Neurological: Sensation intact, Cranial nerves 3-12 intact - Studies Medications List Reviewed: Yes Assessment & Plan - Problems (Diagnosis) (1) Partial small bowel obstruction Current Visit: Yes Status: Acute (2) CAD (coronary artery disease), [place] coronary artery Current Visit: No Status: Acute (3) Cerebrovascular accident Current Visit: No Status: Acute (4) Hypertensive disorder, systemic arterial Current Visit: No Status: Acute - Plan Plan: 1. Continue with gentle hydration 2. NG tube to suction 3. Pain control 4. Out of bed and ambulate 5. Repeat abdominal x-ray 6. Monitor electrolytes 7. Minimal pain medication 8. GI and DVT prophylaxis Discharge Plan: Home Plan to discharge in: Greater than 2 days - Advance Directives Does patient have a Living Will: No Does patient have a Durable POA for Healthcare: No - Code Status/Comfort Care Code Status Assessed: Yes Code Status: Full Code Critical Care: No Time Spent Managing PTS Care (In Minutes): 35
[2020-03-18] MEDS: HYDRALAZINE HCL 20 MG/ML VIAL IV PRN (20:20)
[2020-03-18 20:26] LABS: Phosphorus 2.4 mg/dL (2.5-4.9); Potassium 4.1 mmol/L (3.5-5.1)
--- NOTE | 2020-03-18 21:10 | PN ---
Date of Progress Note: 03/18/2020 Diagnosis: Small bowel obstruction. History Of Present Illness: This is a case of a 74-year-old patient with small bowel obstruction, mu ltiple surgeries in the past. Today, he feels better, passing flatus, although no bowel movement yet . Abdomen is softer for him. Review of Systems: No nausea. No vomiting. Passing flatus. No bowel movement. No shortness of breath. No chest pain . No fever. Ten points otherwise unremarkable. Physical Examination: General: The patient is awake, alert, in no distress. Abdomen: Soft and depressible. Softer than before. No guarding or rebound. Mild generalized tende rness. Mild distention. Extremities: Good capillary refill. Plan: We will clamp the NG tube today. If he does not vomit, we will remove it by tonight. Diet, w e are going to hold today. Tomorrow if he improves and keeps passing flatus, we are going to advance diet. We encouraged ambulation. RUTHY/SILVIO Voice ID: [id number] Report ID: [id number]
[2020-03-19] MEDS: NA CHLORIDE 0.9% 1,000 ML IV SCH ×5 (00:15→23:54)
[2020-03-19 04:51] LABS: Basophils % 0.8 % (0-1.3); Bilirubin Total 0.8 mg/dL (0.2-1.0); Hematocrit 34.8 % (39.6-49.0); Lymphocytes % 18.6 % (15.3-44.8); MPV 8.4 fL (7.6-11.3); Magnesium 2.1 mg/dL (1.8-2.4); Phosphorus 2.2 mg/dL (2.5-4.9); Potassium 3.9 mmol/L (3.5-5.1); Protein, Total 6.6 g/dL (6.4-8.2); RBC Red Blood Cell Count 3.89 M/uL (4.33-5.43)
[2020-03-19] MEDS ORDERED: POTASSIUM PHOS IN 0.9 % NACL 15 MMOL/250 ML BAG IV ONE (07:00)
[2020-03-20] MEDS: HYDRALAZINE HCL 20 MG/ML VIAL IV PRN ×2 (01:23→17:52)
[2020-03-20] MEDS: NA CHLORIDE 0.9% 1,000 ML IV SCH ×4 (04:00→23:31)
[2020-03-20 06:05] LABS: Phosphorus 2.3 mg/dL (2.5-4.9); Potassium 3.7 mmol/L (3.5-5.1)
[2020-03-20] MEDS: METOPROLOL TAR 50 MG TAB PO SCH ×3 (06:09→21:01)
[2020-03-20] MEDS: POTASS/SODIUM PHOSPHATE 1 PKT POWD.PACK PO SCH ×3 (06:22→10:09)
[2020-03-20] MEDS ORDERED: POTASSIUM 25 MEQ EFFERV TAB PO ONE (09:00)
[2020-03-20] MEDS: AMLODIPINE 5 MG TAB PO SCH (09:14)
[2020-03-20] MEDS ORDERED: MINERAL OIL 30 ML UCUP PO ONE (09:24)
--- NOTE | 2020-03-20 09:25 | P.PN ---
Subjective Date of Service: 03/18/20 Patient starting does have flatus. Spoke which surgery and will NG tube clamped at this time. Review of Systems 10-point ROS is otherwise unremarkable Physical Examination - Vital Signs Temperature: 98.5 F Blood Pressure: 145/66 Pulse: 59 Respirations: 18 Pulse Ox (%): 95 - Physical Exam General: Alert, In no apparent distress, Oriented x3 HEENT: Atraumatic, PERRLA, EOMI Neck: Supple, JVD not distended Respiratory: Clear to auscultation bilaterally, Normal air movement Cardiovascular: Regular rate/rhythm, Normal S1 S2 Gastrointestinal: Normal bowel sounds, No tenderness, No masses, No rebound, No guarding, Distended Musculoskeletal: No tenderness Integumentary: No rashes Neurological: Normal speech, Normal tone, Normal affect Lymphatics: No axilla or inguinal lymphadenopathy - Studies Medications List Reviewed: Yes Assessment & Plan - Problems (Diagnosis) (1) Partial small bowel obstruction Current Visit: Yes Status: Acute (2) CAD (coronary artery disease), [place] coronary artery Current Visit: No Status: Acute (3) Cerebrovascular accident Current Visit: No Status: Acute (4) Hypertensive disorder, systemic arterial Current Visit: No Status: Acute - Plan Plan: 1. Continue with gentle hydration 2. Clamp NGT 3. Pain control 4. Out of bed and ambulate 5. Repeat abdominal x-ray 6. Monitor electrolytes 7. Minimal pain medication 8. GI and DVT prophylaxis Discharge Plan: Home Plan to discharge in: Greater than 2 days - Advance Directives Does patient have a Living Will: No Does patient have a Durable POA for Healthcare: No - Code Status/Comfort Care Code Status: Full Code Critical Care: No Time Spent Managing PTS Care (In Minutes): 25
--- NOTE | 2020-03-20 09:27 | P.PN ---
Subjective Date of Service: 03/19/20 NG tube discontinued. Patient did have some stool that was stained on his bed. He is having a lot of flatus. He said he has not had a large bowel movement. Will monitor him and advanced diet per General surgery. Review of Systems 10-point ROS is otherwise unremarkable Physical Examination - Vital Signs Temperature: 98.5 F Blood Pressure: 145/66 Pulse: 59 Respirations: 18 Pulse Ox (%): 95 - Physical Exam General: Alert, In no apparent distress, Oriented x3 HEENT: Atraumatic, PERRLA, EOMI Neck: Supple, JVD not distended Respiratory: Clear to auscultation bilaterally, Normal air movement Cardiovascular: Regular rate/rhythm, Normal S1 S2 Gastrointestinal: Normal bowel sounds, Soft and benign, No tenderness, No rebound, No guarding, Distended Musculoskeletal: No tenderness Integumentary: No rashes Neurological: Normal speech, Normal tone, Normal affect Lymphatics: No axilla or inguinal lymphadenopathy - Studies Medications List Reviewed: Yes Assessment & Plan - Problems (Diagnosis) (1) Partial small bowel obstruction Current Visit: Yes Status: Acute (2) CAD (coronary artery disease), [place] coronary artery Current Visit: No Status: Acute (3) Cerebrovascular accident Current Visit: No Status: Acute (4) Hypertensive disorder, systemic arterial Current Visit: No Status: Acute - Plan Plan: 1. Continue with gentle hydration 2. NG tube was discontinued 3. Diet tolerated; advanced per surgery 4. Out of bed and ambulate 5. Repeat abdominal x-ray 6. Monitor electrolytes 7. Minimal pain medication 8. GI and DVT prophylaxis - Advance Directives Does patient have a Living Will: No Does patient have a Durable POA for Healthcare: No - Code Status/Comfort Care Code Status: Full Code
--- NOTE | 2020-03-20 13:36 | RAD REPORT ---
EXAM DESCRIPTION: RAD - Abdomen Single View - 03/20/2020 1:28 pm CLINICAL HISTORY: Abdominal pain FINDINGS: Mildly dilated small bowel without significant change from March 18, 2020. Air is presen t within the colon. This has the appearance of a partial small bowel obstruction
[2020-03-20] MEDS: VANCOMYCIN 2 GM in NA CHLORIDE 0.9% 500 ML IVPB SCH (16:38)
--- NOTE | 2020-03-20 17:15 | PN ---
Date of Progress Note: 03/20/2020 Reason For Service: Small bowel obstruction. Subjective: The patient is better, passing flatus. No shortness of breath. No chest pain. Objective: Abdomen: Soft and benign. Extremities: No calf tenderness. Laboratory Data: X-rays show mild dilated small bowel. Air is present within the colon. Probably t he partial small bowel obstruction. Blood work reviewed. Plan: The patient is tolerating diet, passing flatus. No more abdominal pain. So, we are going to advance diet slowly. I advised him if he continues to like that, keep the diet and puree or a full l iquid diet for the next week or so. I know he wants to go home, but we want to make sure he can take his 1800 calories. I discussed the case with the primary doctor. We are going to keep advancing di et and if he tolerates diet, at least a full liquid diet or pureed diet, then follow up with my offic e in a week. Otherwise, stay overnight and then proceed accordingly. Yesterday, the NG tube was rem antonino and the patient has no problems with that. RUTHY/SILVIO Voice ID: [id number] Report ID: [id number]
[2020-03-20] MEDS ORDERED: MAGNES/ALUMIN/SIMET 30ML UCUP PO ONE (18:00)
[2020-03-20 22:11] VITALS: O2SAT 95
[2020-03-21 05:58] LABS: Magnesium 2.2 mg/dL (1.8-2.4); Phosphorus 2.6 mg/dL (2.5-4.9); Potassium 4.1 mmol/L (3.5-5.1)
[2020-03-21] MEDS: NA CHLORIDE 0.9% 1,000 ML IV SCH ×2 (07:15→15:52)
[2020-03-21] MEDS: METOPROLOL TAR 50 MG TAB PO SCH (09:00)
[2020-03-21] MEDS ORDERED: MINERAL OIL 30 ML UCUP PO ONE (09:12)
[2020-03-21] MEDS: AMLODIPINE 5 MG TAB PO SCH (09:56)
[2020-03-21] MEDS ORDERED: LACTULOSE 20 GM/30 ML UCUP PO ONE (10:54)
[2020-03-21] MEDS: VANCOMYCIN 2 GM in NA CHLORIDE 0.9% 500 ML IVPB SCH (16:00)
[2020-03-21 18:39] VITALS: BP 160/54; TEMP 97.4
--- NOTE | 2020-03-26 04:49 | P.PN ---
Subjective Date of Service: 03/20/20 Patient has started on a clear liquid diet and advancing as tolerated. Patient still has not had a bowel movement. We went ahead and started some mineral oil as well as lactulose. Nurse gave patient prune juice. Review of Systems 10-point ROS is otherwise unremarkable Physical Examination - Vital Signs Temperature: 97.4 F Blood Pressure: 160/54 Pulse: 69 Respirations: 20 Pulse Ox (%): 94 - Physical Exam General: Alert, In no apparent distress, Oriented x3 Respiratory: Clear to auscultation bilaterally, Normal air movement Cardiovascular: Regular rate/rhythm, Normal S1 S2 Gastrointestinal: Normal bowel sounds, Soft and benign, Non-distended, No tenderness Musculoskeletal: No clubbing, No swelling, No tenderness Integumentary: No rashes Neurological: Normal tone, Sensation intact, Cranial nerves 3-12 intact - Studies Medications List Reviewed: Yes Assessment & Plan - Problems (Diagnosis) (1) Partial small bowel obstruction Status: Acute (2) CAD (coronary artery disease), [place] coronary artery Status: Acute (3) Cerebrovascular accident Status: Acute (4) Hypertensive disorder, systemic arterial Status: Acute - Plan Plan: Continue with plan of care as mentioned below 1. Continue with gentle hydration 2. NG tube was discontinued 3. Diet tolerated; advanced per surgery 4. Out of bed and ambulate 5. Repeat abdominal x-ray if symptoms worsen 6. Monitor electrolytes 7. Minimal pain medication 8. GI and DVT prophylaxis Discharge Plan: Home Plan to discharge in: Greater than 2 days - Advance Directives Does patient have a Living Will: No Does patient have a Durable POA for Healthcare: No - Code Status/Comfort Care Code Status: Full Code Critical Care: No Time Spent Managing PTS Care (In Minutes): 35
--- NOTE | 2020-03-26 04:50 | P.DS ---
Discharge Date: 03/21/20 Disposition: ROUTINE DISCHARGE Discharge Condition: GOOD - Problems (1) Partial small bowel obstruction Status: Acute (2) CAD (coronary artery disease), [place] coronary artery Status: Acute (3) Cerebrovascular accident Status: Acute (4) Hypertensive disorder, systemic arterial Status: Acute Brief History of Present Illness: 74-year-old male with history of CAD, CVA, hypertension presents emergency department for abdominal distention and vomiting, patient does report a history of abdominal surgeries including hernia repair, cholecystectomy, appendectomy. Patient noticed abdominal swelling that started this morning with vomiting beginning around noon. Abdomen significant distended, CT demonstrates high-grade small-bowel obstruction, NG tube inserted in the emergency department general surgery consulted. Patient appears stable at this time, will admit for further evaluation and management. Patient prefers DNR status. Hospital Course: We were able to DC and G tube as patient was having a lot of flatus. Patient ended up tolerating diet and then he did have a large bowel movement after he has some prune juice. Discharge home. Outpatient follow up with general surgery. Vital Signs/Physical Exam: Temp Pulse Resp BP Pulse Ox 97.4 F 69 20 160/54 H 94 03/26/20 04:48 03/26/20 04:48 03/26/20 04:48 03/26/20 04:48 03/26/20 04:48 General: Alert, In no apparent distress, Oriented x3 Laboratory Data at Discharge: WBC 5.3 K/uL (4.3-10.9) D 03/19/20 03:43 Hgb 12.0 g/dL (13.6-17.9) L 03/19/20 03:43 Hct 34.8 % (39.6-49.0) L D 03/19/20 03:43 Plt Count 117 K/uL (152-406) L 03/19/20 03:43 PT 12.7 SECONDS (9.5-12.5) H 03/16/20 18:17 INR 1.08 03/16/20 18:17 Sodium 142 mmol/L (136-145) 03/21/20 05:27 Potassium 4.1 mmol/L (3.5-5.1) 03/21/20 05:27 BUN 12 mg/dL (7-18) 03/21/20 05:27 Creatinine 1.38 mg/dL (0.55-1.3) H 03/21/20 05:27 Glucose 100 mg/dL (74-106) 03/21/20 05:27 Phosphorus 2.6 mg/dL (2.5-4.9) 03/21/20 05:27 Magnesium 2.2 mg/dL (1.8-2.4) 03/21/20 05:27 Total Bilirubin 0.8 mg/dL (0.2-1.0) 03/19/20 03:43 AST 18 U/L (15-37) 03/19/20 03:43 ALT 14 U/L (12-78) 03/19/20 03:43 Alkaline Phosphatase 38 U/L (45-117) L 03/19/20 03:43 Lipase 110 U/L (73-393) 03/16/20 18:17 Home Medications: Levothyroxine [Synthroid*] 75 mcg PO [id number] 10/07/13 Clopidogrel Bisulfate [Plavix*] 75 mg PO DAILY #30 tablet 10/09/13 Metoprolol Tartrate [Lopressor*] 50 mg PO Q12HR #60 tab 10/09/13 Aspirin 325 mg PO DAILY #30 tablet 09/13/14 Pantoprazole [Protonix Tab*] 40 mg PO BID #60 tab 09/13/14 Amlodipine Besylate 5 mg PO DAILY 03/17/20 Rosuvastatin [Crestor*] 20 mg PO BEDTIME 03/17/20 Docusate Sodium [Dulcolax Stool Softener] 100 mg PO BID #30 capsule 03/21/20 New Medications: Docusate Sodium [Dulcolax Stool Softener] 100 mg PO BID #30 capsule Patient Discharge Instructions: OK TO DC IV AND DC HOME. FOLLOW-UP WITH PRIMARY CARE PROVIDER IN 1-2 WEEKS. FOLLOW-UP WITH [facility] IN 1-2 WEEKS. RETURN TO THE ER IF symptoms worsen. CALL or TEXT DR. HAWLEY AT [phone] IF ANY QUESTIONS REGARDING HOSPITAL STAY. PLEASE CALL THE FLOOR AT [phone] IF ANY MEDICATION OR NURSING QUESTIONS. Diet: AHA Activity: Fall precautions Followup: Unknown,U [Primary Care Provider] - Time spent managing pt's care (in minutes): 35
--- NOTE | 2020-06-03 13:51 | P.PN ---
Subjective Date of Service: 03/19/20 Chief Complaint: SBO Subjective: Improving Review of Systems Respiratory: Shortness of Breath (no) Gastrointestinal: Nausea (no), Vomiting (no), Abdominal Pain (better), Distention (improved) Physical Examination - Vital Signs Temperature: 97.4 F Blood Pressure: 160/54 Pulse: 69 Respirations: 20 Pulse Ox (%): 94 - Physical Exam General: Alert, In no apparent distress, Oriented x3, Cooperative Respiratory: Normal air movement Gastrointestinal: Soft and benign - Studies Medications List Reviewed: Yes Assessment And Plan - Plan d/c NGT OOB Sips of liquid
--- NOTE | 2020-06-03 13:52 | P.PN ---
Subjective Date of Service: 03/21/20 Chief Complaint: SBO Subjective: Tolerating diet, Ambulating, Improving Review of Systems General: Unremarkable Cardiovascular: Unremarkable Gastrointestinal: Unremarkable Physical Examination - Vital Signs Temperature: 97.4 F Blood Pressure: 160/54 Pulse: 69 Respirations: 20 Pulse Ox (%): 94 - Physical Exam General: Alert, In no apparent distress, Oriented x3 Cardiovascular: No edema Gastrointestinal: Normal bowel sounds, Soft and benign, No tenderness, No rebound, No guarding Integumentary: No rashes - Studies Medications List Reviewed: Yes Assessment And Plan - Plan puree diet f/u with his Gastroenterologyst f/u with me in a week
== END 2020-03-21 17:30 | disposition home or self-care (01) | DRG 389 ==
LOC: ER 17:29 → ERHOLD 23:29 → 2ND 03-17 17:24
PROVIDERS: ADMIT Hospitalist; ATTEND Hospitalist
DX: K56.600 Partial intestinal obstruction, unspecified as to cause (principal); N17.9 Acute kidney failure, unspecified; N34.2 Other urethritis; I25.10 Atherosclerotic heart disease of native coronary artery without angina pectoris; I12.9 Hypertensive chronic kidney disease with stage 1 through stage 4 chronic kidney disease, or unspecified chronic kidney disease; N18.9 Chronic kidney disease, unspecified; E78.5 Hyperlipidemia, unspecified; I25.2 Old myocardial infarction; Z66 Do not resuscitate; Z79.82 Long term (current) use of aspirin; Z79.890 Hormone replacement therapy; Z79.899 Other long term (current) drug therapy; Z90.49 Acquired absence of other specified parts of digestive tract; Z86.73 Personal history of transient ischemic attack (TIA), and cerebral infarction without residual deficits; Z79.02 Long term (current) use of antithrombotics/antiplatelets; Z60.2 Problems related to living alone; Z20.822 Contact with and (suspected) exposure to COVID-19
CPT/HCPCS: 36415; 71045; 74018; 74019; 74176; 80048; 80053; 80076; 81003; 81015; 83690; 83735; 83880; 84100; 84132; 84439; 84443; 84484; 85025; 85610; 87077; 87086; 87088; 87186; 93005; 96361; 96374; 96375; 99285; C9113; J0360; J1200; J2270; J2550; J2765; J3010; J3370; J7030; J7040; U0003

== ENCOUNTER 2022-09-05 16:36 | Emergency (ER) | payer OTHER ==
--- OUTSIDE RECORDS SUMMARY | 2022-09-05 16:38 | XMS REPORT | Continuity of Care Document ---
:1945 Author Organization [facility] t Address [address] [place] [id number] Care Team Providers Name Role Phone Cindy-Sherri_A_AH Attending Clinician Unavailable Cindy-Sherri_A_AH Admitting Clinician Unavailable Payers Payer Name Policy Type Policy Number Effective Date Expiration Date S primo [facility] [place] - [id number] 1257-01-01 [employer] 00:00:00 (MEDICARE REPLACEMENT/ADVANT AGE - HMO) Problems This patient has no known problems. Allergies, Adverse Reactions, Alerts This patient has no known allergies or adverse reactions. Medications This patient has no known medications. Procedures This patient has no known procedures. Encounters Start End Encounter Admission Attending Care Care Encounter Source Date/Time Date/Time Type Type Clinicians Facility Department ID 2019-04-25 2019-04-25 Outpatient Will [facility] [phone] [facility] 07:18:00 07:18:00 _A_AH [id number] Family Practic e Results This patient has no known results.
[2022-09-05] MEDS ORDERED: FAMOTIDINE 20 MG/2 ML VIAL IV ONE (17:04)
[2022-09-05] MEDS ORDERED: NA CHLORIDE 0.9% 1,000 ML ONE (17:04)
[2022-09-05] MEDS ORDERED: ONDANSETRON 4 MG/2 ML VIAL ONE (17:04)
[2022-09-05 17:43] LABS: Absolute Lymphocytes (CBC) 0.9 K/uL (0.7-4.9); Hematocrit 36.9 % (39.6-49.0); Lymphocytes % 14.2 % (15.3-44.8); MCV 88.9 fL (80-100); MPV 7.9 fL (7.6-11.3); RBC Red Blood Cell Count 4.15 M/uL (4.33-5.43)
[2022-09-05 18:00] LABS: Albumin 3.4 g/dL (3.4-5.0); Bilirubin Direct 0.5 mg/dL (0-0.2); Bilirubin Indirect, Calculated 0.7 mg/dL (0.2-0.8); Bilirubin Total 1.2 mg/dL (0.2-1.0); Potassium 3.6 mEq/L (3.5-5.1); Protein, Total 7.1 g/dL (6.4-8.2); Troponin High Sensitivity 8.8 pg/mL (<58.9)
--- NOTE | 2022-09-05 18:01 | RAD REPORT ---
EXAM DESCRIPTION: Staci Single View09/05/2022 5:48 pm CLINICAL HISTORY: sob COMPARISON: 2020 FINDINGS: The lungs appear clear of acute infiltrate. The heart is mildly enlarged IMPRESSION: No acute abnormalities displayed
--- NOTE | 2022-09-05 19:09 | ER ---
Nurse's Notes [facility] Name: Reynaldo Perdomo Age: 77 yrs Sex: Male : 1945 Arrival Date: 09/05/2022 Time: 16:36 Bed 6 Private MD: Diagnosis: Heat exhaustion, unspecified;Dehydration Presentation: 09/05 16:40 Chief complaint: EMS states: Became dizzy and SOB after being outside for 2-3 hours hb today. Also reports right leg and bilat arm swelling that began while outside. SpO2 90% on RA, improved to 94% on 2LNC. Coronavirus screen: At this time, the client does not indicate any symptoms associated with coronavirus-19. Ebola Screen: No symptoms or risks identified at this time. Initial Sepsis Screen: Does the patient meet any 2 criteria? No. Patient's initial sepsis screen is negative. Does the patient have a suspected source of infection? No. Patient's initial sepsis screen is negative. Risk Assessment: Do you want to hurt yourself or someone else? Patient reports no desire to harm self or others. Onset of symptoms was September 05, 2022. 16:40 Method Of Arrival: EMS: [facility] 16:40 Acuity: GIANFRANCO 3 hb Triage Assessment: 16:41 General: Appears in no apparent distress. Behavior is calm, cooperative. Pain: Denies hb pain. EENT: No signs and/or symptoms were reported regarding the EENT system. Neuro: Level of Consciousness is awake, alert, obeys commands, Oriented to person, place, time, situation. Cardiovascular: Patient's skin is warm and dry. Respiratory: Respiratory effort is even, unlabored, Respiratory pattern is regular, symmetrical. GI: No signs and/or symptoms were reported involving the gastrointestinal system. : No signs and/or symptoms were reported regarding the genitourinary system. Derm: Skin is pink, warm \T\ dry. Musculoskeletal: No signs and/or symptoms reported regarding the musculoskeletal system. Historical: - Allergies: 16:41 No Known Drug Allergies; hb - Home Meds: 16:41 amlodipine 5 mg tab once daily [Active]; aspirin 325 mg Oral tab once daily [Active]; hb clopidogrel 75 mg Oral tab 1 tab once daily [Active]; levothyroxine 75 mcg tab once daily [Active]; metoprolol tartrate 50 mg Oral tab 2 times per day [Active]; pantoprazole 40 mg Oral TbEC once daily [Active]; rosuvastatin 20 mg Oral tab once daily [Active]; - PMHx: 16:41 Kidney stones; Hypertension; [place]; stroke; hb - Immunization history:: Adult Immunizations up to date. - Social history:: Smoking status: Patient denies any tobacco usage or history of. Screenin:43 [facility] ED Fall Risk Assessment (Adult) Score/Fall Risk Level 3 or more points = High hb Risk Oriented to surroundings, Maintained a safe environment, Educated pt \T\ family on fall prevention, incl call for assistance when getting out of bed. Abuse screen: Denies threats or abuse. Denies injuries from another. Nutritional screening: No deficits noted. Tuberculosis screening: No symptoms or risk factors identified. Assessment: 16:43 General: See triage assessment. hb 18:38 Reassessment: Patient appears in no apparent distress at this time. Patient and/or ss family updated on plan of care and expected duration. Pain level reassessed. Patient is alert, oriented x 3, equal unlabored respirations, skin warm/dry/pink. Vital Signs: 16:40 BP 161 / 53; Pulse 59; Resp 20; Temp 98(O); Pulse Ox 96% on 2 lpm NC; Weight 127.01 kg; hb Height 5 ft. 11 in. ; Pain 0/10; 19:11 BP 148 / 88; Pulse 86; Resp 16; Pulse Ox 96% ; hb 16:40 Body Mass Index 39.05 (127.01 kg, 180.34 cm) hb 16:40 Pain Scale: Adult hb [place] Coma Score: 19:15 Eye Response: spontaneous(4). Motor Response: obeys commands(6). Verbal Response: rv oriented(5). Total: 15. ED Course: 16:40 Patient arrived in ED. hb 16:41 Triage completed. hb 16:43 Mir Browning MD is Attending Physician. kdr 16:43 Arm band placed on. hb 16:43 Patient has correct armband on for positive identification. hb 16:46 Socorro Singh, RN is Primary Nurse. hb 17:50 XRAY Chest (1 view) In Process Unspecified. EDMS 17:50 No provider procedures requiring assistance completed. Inserted saline lock: 22 gauge rv in right antecubital area, using aseptic technique. 17:51 Basic Metabolic Panel Sent. rs5 17:51 LFT's Sent. rs5 17:51 Magnesium Sent. rs5 17:51 NT PRO-BNP Sent. rs5 17:51 Troponin HS Sent. rs5 19:41 IV discontinued, intact, bleeding controlled, No redness/swelling at site. Pressure rv dressing applied. Administered Medications: 17:15 Drug: NS 0.9% IV 1000 ml Route: IV; Rate: 1 bolus; Site: right wrist; hb 19:39 Follow up: IV Status: Completed infusion; IV Intake: 1000ml rv 17:15 Drug: Famotidine IVP 20 mg Route: IVP; Site: right wrist; hb 19:38 Follow up: Response: No adverse reaction rv 17:15 Drug: Ondansetron IVP 4 mg Route: IVP; Site: right wrist; hb 19:38 Follow up: Response: No adverse reaction rv Medication: 16:43 VIS not applicable for this client. hb Intake: 19:39 IV: 1000ml; Total: 1000ml. rv Outcome: 19:08 Discharge ordered by . kdr 19:39 Condition: good rv 19:39 Instructed on 19:40 Discharged to home ambulatory. rv 19:41 Patient left the ED. rv Signatures: Dispatcher [employer] EDMS Mir Browning MD MD [facility] Karen Solorio RN RN Socorro Singh RN RN Andrew Hinds RN RN rv Yves Jones rs5 Corrections: (The following items were deleted from the chart) 16:43 16:40 BP 161 / 53; Pulse 59bpm; Resp 20bpm; Pulse Ox 90% RA; Temp 98F Oral; 127.01 kg; hb Height 5 ft. 11 in.; BMI: 39.0; Pain 0/10, Adult; hb 19:40 19:39 Transferred by ground EMS to [facility], Transfer form completed. rv X-rays sent w/ patient. rv
--- NOTE | 2022-09-05 19:09 | EDPHYS ---
Physician Documentation [facility] Name: Reynaldo Perdomo Age: 77 yrs Sex: Male : 1945 Arrival Date: 09/05/2022 Time: 16:36 Bed 6 Private MD: ED Physician Mir Browning HPI: 09/05 17:22 This 77 yrs old Male presents to ER via EMS with complaints of Heat Exposure. kdr 17:22 Patient reports that he was out walking for 2 to 3 hours today. Became hot and felt he kdr was getting overheated. At 1 point he stopped sweating. He then became concerned and went back home. When he got inside he still felt poorly. Began to have some nausea and lightheadedness and dizziness. He sat down for a short bit and then went back outside into his garage. He continued to feel poorly and so he called EMS. EMS reports that he was satting in 90% on room air when they arrived and improved to 94% on 2 L nasal cannula. They provided no other significant intervention in route. Patient on arrival appears stable and nontoxic. Patient is interacting appropriately with staff and otherwise appears comfortable at this time.. Onset: The symptoms/episode began/occurred suddenly, just prior to arrival. Severity of symptoms: At their worst the symptoms were mild in the emergency department the symptoms have resolved. The patient has not experienced similar symptoms in the past. The patient has not recently seen a physician. Historical: - Allergies: 16:41 No Known Drug Allergies; hb - Home Meds: 16:41 amlodipine 5 mg tab once daily [Active]; aspirin 325 mg Oral tab once daily [Active]; hb clopidogrel 75 mg Oral tab 1 tab once daily [Active]; levothyroxine 75 mcg tab once daily [Active]; metoprolol tartrate 50 mg Oral tab 2 times per day [Active]; pantoprazole 40 mg Oral TbEC once daily [Active]; rosuvastatin 20 mg Oral tab once daily [Active]; - PMHx: 16:41 Kidney stones; Hypertension; [place]; stroke; hb - Immunization history:: Adult Immunizations up to date. - Social history:: Smoking status: Patient denies any tobacco usage or history of. ROS: 17:22 Constitutional: Negative for fever, chills, and weight loss, Eyes: Negative for injury, kdr pain, redness, and discharge, Neck: Negative for injury, pain, and swelling, Cardiovascular: Negative for chest pain, palpitations, and edema, Respiratory: Negative for shortness of breath, cough, wheezing, and pleuritic chest pain, Abdomen/GI: Negative for abdominal pain, nausea, vomiting, diarrhea, and constipation, Back: Negative for injury and pain, : Negative for injury, bleeding, discharge, and swelling, MS/Extremity: Negative for injury and deformity, Skin: Negative for injury, rash, and discoloration, Psych: Negative for depression, anxiety, suicide ideation, homicidal ideation, and hallucinations, Allergy/Immunology: Negative for hives, rash, and allergies, Endocrine: Negative for neck swelling, polydipsia, polyuria, polyphagia, and marked weight changes, Hematologic/Lymphatic: Negative for swollen nodes, abnormal bleeding, and unusual bruising. 17:22 Neuro: Positive for dizziness, weakness, Lightheaded. Exam: 17:22 Constitutional: This is a well developed, well nourished patient who is awake, alert, kdr and in no acute distress. Head/Face: Normocephalic, atraumatic. Eyes: Pupils equal round and reactive to light, extra-ocular motions intact. Lids and lashes normal. Conjunctiva and sclera are non-icteric and not injected. Cornea within normal limits. Periorbital areas with no swelling, redness, or edema. Neck: Trachea midline, no thyromegaly or masses palpated, and no cervical lymphadenopathy. Supple, full range of motion without nuchal rigidity, or vertebral point tenderness. No Meningismus. Chest/axilla: Normal chest wall appearance and motion. Nontender with no deformity. No lesions are appreciated. Cardiovascular: Regular rate and rhythm with a normal S1 and S2. No gallops, murmurs, or rubs. Normal PMI, no JVD. No pulse deficits. Respiratory: Lungs have equal breath sounds bilaterally, clear to auscultation and percussion. No rales, rhonchi or wheezes noted. No increased work of breathing, no retractions or nasal flaring. Abdomen/GI: Soft, non-tender, with normal bowel sounds. No distension or tympany. No guarding or rebound. No evidence of tenderness throughout. Back: No spinal tenderness. No costovertebral tenderness. Full range of motion. Skin: Warm, dry with normal turgor. Normal color with no rashes, no lesions, and no evidence of cellulitis. MS/ Extremity: Pulses equal, no cyanosis. Neurovascular intact. Full, normal range of motion. Neuro: Awake and alert, GCS 15, oriented to person, place, time, and situation. Cranial nerves II-XII grossly intact. Motor strength 5/5 in all extremities. Sensory grossly intact. Cerebellar exam normal. Normal gait. Psych: Awake, alert, with orientation to person, place and time. Behavior, mood, and affect are within normal limits. Vital Signs: 16:40 BP 161 / 53; Pulse 59; Resp 20; Temp 98(O); Pulse Ox 96% on 2 lpm NC; Weight 127.01 kg; hb Height 5 ft. 11 in. ; Pain 0/10; 19:11 BP 148 / 88; Pulse 86; Resp 16; Pulse Ox 96% ; hb 16:40 Body Mass Index 39.05 (127.01 kg, 180.34 cm) hb 16:40 Pain Scale: Adult hb [place] Coma Score: 19:15 Eye Response: spontaneous(4). Motor Response: obeys commands(6). Verbal Response: rv oriented(5). Total: 15. MDM: 17:22 Data reviewed: vital signs, nurses notes, lab test result(s), radiologic studies. kdr 19:08 Patient medically screened. kdr 07/02 16:50 Order name: Basic Metabolic Panel; Complete Time: 19:03 [facility] 07 16:50 Order name: CBC with Diff; Complete Time: 19:03 [facility] 07 16:50 Order name: LFT's; Complete Time: 19:03 [facility] 07 16:50 Order name: Magnesium; Complete Time: 19:03 kdr 07 16:50 Order name: NT PRO-BNP; Complete Time: 19:03 [facility] 07/ 16:50 Order name: Troponin HS; Complete Time: 19:03 [facility] 07/02 16:50 Order name: XRAY Chest (1 view); Complete Time: 19:03 [facility] 07/02 16:50 Order name: EKG; Complete Time: 16:51 [facility] 09/05 16:50 Order name: Cardiac monitoring; Complete Time: 16:54 [facility] 09/05 16:50 Order name: EKG - Nurse/Tech; Complete Time: 17:51 kdr 09/05 16:50 Order name: IV Saline Lock; Complete Time: 17:51 kdr 09/05 16:50 Order name: Labs collected and sent; Complete Time: 17:51 kdr 09/05 16:50 Order name: O2 Per Protocol; Complete Time: 16:54 kdr 09/05 16:50 Order name: O2 Sat Monitoring; Complete Time: 16:54 kdr Administered Medications: 17:15 Drug: NS 0.9% IV 1000 ml Route: IV; Rate: 1 bolus; Site: right wrist; hb 19:39 Follow up: IV Status: Completed infusion; IV Intake: 1000ml rv 17:15 Drug: Famotidine IVP 20 mg Route: IVP; Site: right wrist; hb 19:38 Follow up: Response: No adverse reaction rv 17:15 Drug: Ondansetron IVP 4 mg Route: IVP; Site: right wrist; hb 19:38 Follow up: Response: No adverse reaction rv Disposition Summary: 09/05/22 19:08 Discharge Ordered Location: Home kdr Problem: new kdr Symptoms: have improved kdr Condition: Stable kdr Diagnosis - Heat exhaustion, unspecified kdr - Dehydration kdr Followup: kdr - With: Private Physician - When: 2 - 3 days - Reason: If symptoms return, Further diagnostic work-up, Recheck today's complaints, Continuance of care, Re-evaluation by your physician Discharge Instructions: - Discharge Summary Sheet kdr - Dehydration, Elderly kdr - Dehydration, Adult kdr - Heat Exhaustion kdr - Dehydration, Adult, Ctex-lh-[id number] kdr - Rehydration, Adult kdr - Rehydration, Elderly kdr - Preventing Heat Exhaustion, Adult kdr Forms: - Medication Reconciliation Form kdr - Thank You Letter kdr - [email or web address] kdr Signatures: Dispatcher [employer] Mir Loera MD MD kdr Socorro Singh RN RN Andrew Hinds RN rv
[2022-09-05 20:16] VITALS: O2SAT 96
[2022-09-05 20:18] VITALS: BP 161/53; TEMP 98
--- NOTE | 2022-09-06 19:31 | EKG ---
Test Date: 2022-09-05 Test Time: 17:00:27 Puncher And Fastener: FADI MEASUREMENT RESULTS: Intervals: Rate: 55 AR: 180 QRSD: 136 QT: 500 QTc: 478 [place]: P: 64 AR: 180 QRS: 26 T: 41 INTERPRETIVE STATEMENTS: Sinus bradycardia Right bundle branch block Abnormal ECG Compared to ECG 03/16/2020 18:13:20 Right bundle-branch block now present T-wave abnormality no longer present Electronically Signed On 09-06-22 19:29:01 CDT by Esteban Lowery
== END 2022-09-05 19:41 | disposition home or self-care (01) ==
LOC: ER 16:36
DX: T67.5XXA Heat exhaustion, unspecified, initial encounter (principal); E86.0 Dehydration; I10 Essential (primary) hypertension; I25.2 Old myocardial infarction; Z79.82 Long term (current) use of aspirin
CPT/HCPCS: 96361; 93005; 85025; 80048; 36415; 83735; 80076; 84484; 83880; 71045; 96375; 96374; 99284; J2405; J7030

== ENCOUNTER 2022-11-23 08:45 | Emergency (ER) | payer OTHER ==
--- OUTSIDE RECORDS SUMMARY | 2022-11-23 08:48 | XMS REPORT | Continuity of Care Document ---
:1945 Author Organization [facility] t Address [address] [place] [id number] Care Team Providers Name Role Phone Cindy-Skylao_A_AH Attending Clinician Unavailable Cindy-Skylao_A_AH Admitting Clinician Unavailable Payers Payer Name Policy Type Policy Number Effective Date Expiration Date [facility] [place] [facility] [id number] [facility] (MEDICARE REPLACEMENT/ADVANT AGE - HMO) Problems This patient has no known problems. Allergies, Adverse Reactions, Alerts This patient has no known allergies or adverse reactions. Medications This patient has no known medications. Procedures This patient has no known procedures. Encounters Start End Encounter Admission Attending Care Care Encounter Source Date/Time Date/Time Type Type Clinicians Facility Department ID 2019-04-25 2019-04-25 Outpatient Junioro P [facility] [phone] [facility] 07:18:00 07:18:00 _A_AH [id number] Family Practic e Results This patient has no known results.
[2022-11-23 09:44] LABS: Absolute Lymphocytes (CBC) 0.9 K/uL (0.7-4.9); Hematocrit 37.7 % (39.6-49.0); Lymphocytes % 14.5 % (15.3-44.8); MCV 89.4 fL (80-100); MPV 7.6 fL (7.6-11.3); Platelets 144 thou/uL (152-406); RBC Red Blood Cell Count 4.22 M/uL (4.33-5.43)
[2022-11-23 10:29] LABS: Albumin 3.2 g/dL (3.4-5.0); Bilirubin Total 0.8 mg/dL (0.2-1.0); Potassium 3.6 mEq/L (3.5-5.1)
--- NOTE | 2022-11-23 12:30 | ER ---
Nurse's Notes [facility] Name: Reynaldo Perdomo Age: 77 yrs Sex: Male : 1945 Arrival Date: 11/23/2022 Time: 08:45 Bed 6 Private MD: Diagnosis: Dermatitis, unspecified;Cellulitis of right lower limb Presentation: 11/23 08:58 Chief complaint: Patient states: Right leg swelling and itching x 2 weeks, left leg jl7 started a few days ago, haven't taken care of self due to son being on hospice and he passed this morning. Coronavirus screen: At this time, the client does not indicate any symptoms associated with coronavirus-19. Ebola Screen: No symptoms or risks identified at this time. Initial Sepsis Screen: Does the patient meet any 2 criteria? No. Patient's initial sepsis screen is negative. Does the patient have a suspected source of infection? No. Patient's initial sepsis screen is negative. Risk Assessment: Do you want to hurt yourself or someone else? Patient reports no desire to harm self or others. Onset of symptoms was November 09, 2022. 08:58 Method Of Arrival: Ambulatory jl7 08:58 Acuity: GIANFRANCO 3 jl7 Triage Assessment: 09:00 General: Appears in no apparent distress. uncomfortable, Behavior is calm, cooperative, jl7 appropriate for age. Pain: Complains of pain in right leg and left leg Pain currently is 9 out of 10 on a pain scale. Historical: - Allergies: 09:00 No Known Allergies; jl7 - Home Meds: 09:00 metoprolol tartrate 50 mg Oral tab 2 times per day [Active]; clopidogrel 75 mg Oral tab jl7 1 tab once daily [Active]; pantoprazole 40 mg Oral TbEC once daily [Active]; rosuvastatin 20 mg Oral tab once daily [Active]; levothyroxine 75 mcg tab once daily [Active]; amlodipine 5 mg tab once daily [Active]; aspirin 325 mg Oral tab once daily [Active]; oxybutynin chloride 2.5 mg Oral tablet 2 times per day [Active]; - PMHx: 09:00 Hypertension; Kidney stones; [place]; stroke; Hypercholesterolemia; Hypothyroidism; jl7 - Immunization history:: Adult Immunizations up to date. - Social history:: Smoking status: Patient denies any tobacco usage or history of. Screenin:25 [facility] ED Fall Risk Assessment (Adult) History of falling in the last 3 months, ld1 including since admission No falls in past 3 months (0 pts). Abuse screen: Denies threats or abuse. Denies injuries from another. Nutritional screening: No deficits noted. Tuberculosis screening: No symptoms or risk factors identified. Assessment: 09:24 General: Appears in no apparent distress. comfortable, Behavior is calm, cooperative, ld1 appropriate for age. 09:25 Pain: Complains of pain in right leg and left leg Pain does not radiate. Pain currently ld1 is 9 out of 10 on a pain scale. Quality of pain is described as throbbing. Neuro: Level of Consciousness is awake, alert, obeys commands, Oriented to person, place, time, situation. Cardiovascular: Capillary refill < 3 seconds Patient's skin is warm and dry. Cardiovascular: Rhythm is sinus tachycardia. Respiratory: Airway is patent Respiratory effort is even, unlabored. : No signs and/or symptoms were reported regarding the genitourinary system. EENT: No signs and/or symptoms were reported regarding the EENT system. Derm: No signs and/or symptoms reported regarding the dermatologic system. Musculoskeletal: No signs and/or symptoms reported regarding the musculoskeletal system. 09:25 GI: Abdomen is flat, non-distended. ld1 10:25 Reassessment: Patient appears in no apparent distress at this time. No changes from kc6 previously documented assessment. Patient and/or family updated on plan of care and expected duration. Pain level reassessed. Patient is alert, oriented x 3, equal unlabored respirations, skin warm/dry/pink. 11:25 Reassessment: Patient appears in no apparent distress at this time. No changes from kc6 previously documented assessment. Patient and/or family updated on plan of care and expected duration. Pain level reassessed. Patient is alert, oriented x 3, equal unlabored respirations, skin warm/dry/pink. Vital Signs: 08:58 BP 168 / 78; Pulse 77; Resp 15; Temp 98.1; Pulse Ox 92% on R/A; Weight 117.93 kg; jl7 Height 5 ft. 11 in. ; Pain 9/10; 11:50 BP 137 / 60; Pulse 53; Resp 16 S; Pulse Ox 95% on R/A; kc6 08:58 Body Mass Index 36.26 (117.93 kg, 180.34 cm) jl7 08:58 Pain Scale: Adult jl7 ED Course: 08:48 Patient arrived in ED. rg4 08:54 Georgiana Gonzales NP is PHCP. aj3 08:54 Austen Paz MD is Attending Physician. aj3 09:00 Triage completed. jl7 09:00 Arm band placed on right wrist. jl7 09:23 Maranda Mackey, JOSE F is Primary Nurse. ld1 09:25 Patient has correct armband on for positive identification. Placed in gown. Bed in low ld1 position. Call light in reach. Side rails up X2. small wind energy installer on. Pulse ox on. NIBP on. Door closed. Noise minimized. Warm blanket given. 09:25 No provider procedures requiring assistance completed. ld1 09:37 Inserted saline lock: 20 gauge in right antecubital area, using aseptic technique. kc6 Blood collected. 12:51 IV discontinued, intact, bleeding controlled, No redness/swelling at site. ld1 Administered Medications: No medications were administered Medication: 12:51 VIS not applicable for this client. ld1 Outcome: 12:29 Discharge ordered by . aj3 12:51 Discharged to home ambulatory, ld1 12:51 Condition: stable 12:51 Discharge instructions given to patient, Instructed on discharge instructions, follow up and referral plans. Demonstrated understanding of instructions, follow-up care, medications, Prescriptions given X 1, 12:51 Patient left the ED. ld1 Signatures: Digna Bueno rg4 Yoly Quiles RN RN jl7 Maranda Mackey RN RN ld1 Breanna Parkinson RN RN kc6 Georgiana Gonzales NP DIRECTOR OF COLLECTIONS AND ARCHIVES aj3 Corrections: (The following items were deleted from the chart) 09:27 09:25 GI: Abdomen is flat, non-distended, Pt is actively vomiting coffee ground emesis ld1 Reports lower abdominal pain, upper abdominal pain, diarrhea, nausea, vomiting, ld1 12:16 11:25 Reassessment: Patient appears in no apparent distress at this time. No changes kc6 from previously documented assessment. kc6
--- NOTE | 2022-11-23 12:30 | EDPHYS ---
Physician Documentation [facility] Name: Reynaldo Perdomo Age: 77 yrs Sex: Male : 1945 Arrival Date: 11/23/2022 Time: 08:45 Bed 6 Private MD: ED Physician Austen Paz HPI: 11/23 09:20 This 77 yrs old Male presents to ER via Ambulatory with complaints of Leg aj3 Swelling and redness to RLE. 09:20 Patient reports that he has had increased leg swelling to both legs and redness to aj3 right lower extremity progressively gotten worse over the last 2 weeks. He says that he has been taking care of his sick son and has not slept in a proper bed and therefore his legs have been hanging off of the recliner. He denies any environmental exposure, fever, chills, insect bites. He says that the redness is more itchy and not painful with some drainage noted. Historical: - Allergies: 09:00 No Known Allergies; jl7 - Home Meds: 09:00 metoprolol tartrate 50 mg Oral tab 2 times per day [Active]; clopidogrel 75 mg Oral tab jl7 1 tab once daily [Active]; pantoprazole 40 mg Oral TbEC once daily [Active]; rosuvastatin 20 mg Oral tab once daily [Active]; levothyroxine 75 mcg tab once daily [Active]; amlodipine 5 mg tab once daily [Active]; aspirin 325 mg Oral tab once daily [Active]; oxybutynin chloride 2.5 mg Oral tablet 2 times per day [Active]; - PMHx: 09:00 Hypertension; Kidney stones; [place]; stroke; Hypercholesterolemia; Hypothyroidism; jl7 - Immunization history:: Adult Immunizations up to date. - Social history:: Smoking status: Patient denies any tobacco usage or history of. ROS: 09:20 Constitutional: Negative for fever, chills, and weight loss, Cardiovascular: Negative aj3 for chest pain, palpitations, and edema, Respiratory: Negative for shortness of breath, cough, wheezing, and pleuritic chest pain, Neuro: Negative for syncope, headache, weakness, numbness, tingling, and seizure, 09:20 MS/extremity: Positive for rash, swelling, warmth, of the bilateral lower legs, Negative for pain, 09:20 Skin: Positive for erythema, rash, Negative for ulceration, Exam: 09:20 Constitutional: This is a well developed, well nourished patient who is awake, alert, aj3 and in no acute distress. Head/Face: Normocephalic, atraumatic. Neck: Supple, full range of motion without nuchal rigidity. Cardiovascular: Regular rate and rhythm with a normal S1 and S2. No gallops, murmurs, or rubs. Normal PMI, no JVD. No pulse deficits. Respiratory: Lungs have equal breath sounds bilaterally, clear to auscultation and percussion. No rales, rhonchi or wheezes noted. No increased work of breathing, no retractions or nasal flaring. Abdomen/GI: Soft, non-tender, with normal bowel sounds. No distension or tympany. No guarding or rebound. No evidence of tenderness throughout. 09:20 Musculoskeletal/extremity: Extremities: grossly normal except: swelling, erythema, rash, swelling, drainage, 09:20 Skin: cellulitis, on the right lower leg, anterior, aj3 Vital Signs: 08:58 BP 168 / 78; Pulse 77; Resp 15; Temp 98.1; Pulse Ox 92% on R/A; Weight 117.93 kg; jl7 Height 5 ft. 11 in. ; Pain 9/10; 11:50 BP 137 / 60; Pulse 53; Resp 16 S; Pulse Ox 95% on R/A; kc6 08:58 Body Mass Index 36.26 (117.93 kg, 180.34 cm) 7 08:58 Pain Scale: Adult [facility] MDM: 09:18 Patient medically screened. aj3 10:00 Differential diagnosis: abscess, allergic reaction, cellulitis, insect bite. aj3 11:00 Data reviewed: vital signs, nurses notes, lab test result(s), I have discussed the aj3 patient's presentation/case with the attending Emergency Department Physician;. Test considered but Not performed:. Test considered but Not performed: Ultrasound Low suspicion for DVT. Care significantly affected by the following chronic conditions: Hypertension, Chronic Kidney Disease. Counseling: I had a detailed discussion with the patient and/or guardian regarding the historical points, exam findings, and any diagnostic results supporting the discharge/admit diagnosis, lab results, the need for outpatient follow up, to return to the emergency department if symptoms worsen or persist or if there are any questions or concerns that arise at home. 11/23 09:22 Order name: CBC with Diff; Complete Time: 09:47 aj3 11/23 09:22 Order name: CMP; Complete Time: 10:37 aj3 11/23 09:22 Order name: BNP; Complete Time: 10:37 aj3 11/23 09:48 Order name: Labs - recollect needed: recollect light green; Complete Time: 10:06 bd Administered Medications: No medications were administered Disposition: 17:20 Co-signature as Attending Physician, Austen Paz MD I reviewed the patient's care rn provided by the Advanced Practice Provider and agree with the diagnosis and treatment plan. Disposition Summary: 11/23/22 12:29 Discharge Ordered Notes: Location: Home aj3 Problem: new aj3 Symptoms: have improved aj3 Condition: Stable aj3 Diagnosis - Dermatitis, unspecified aj3 - Cellulitis of right lower limb aj3 Followup: aj3 - With: Private Physician - When: - Reason: Recheck today's complaints, Re-evaluation by your physician Followup: aj3 - With: Emergency Department - When: - Reason: Worsening of condition Forms: - Medication Reconciliation Form aj3 - Thank You Letter aj3 - Antibiotic Education aj3 - Prescription Opioid Use aj3 - Patient Portal Instructions aj3 - Leadership Thank You Letter aj3 Signatures: Dispatcher [employer] EDMS Charo Sauceda Roman, MD MD rn Yoly Quiles RN RN jl7 Georgiana Gonzales NP [employer] aj3 Corrections: (The following items were deleted from the chart) 09:27 09:20 This 77 yrs old Male presents to ER via Ambulatory with complaints of aj3 Leg Swelling and redness to RLE. aj3 20:22 20:17 Medication response: Toradol markedly relieved the patient's pain, aj3 aj3 20:24 11:11 Medication response: Toradol markedly relieved the patient's pain, aj3 aj3
[2022-11-23 13:39] VITALS: TEMP 98.1
[2022-11-23 13:41] VITALS: BP 137/60; O2SAT 95
== END 2022-11-23 12:51 | disposition home or self-care (01) ==
LOC: ER 08:45
DX: L03.115 Cellulitis of right lower limb (principal); I10 Essential (primary) hypertension; I25.2 Old myocardial infarction; E03.9 Hypothyroidism, unspecified; Z79.82 Long term (current) use of aspirin
CPT/HCPCS: 36415; 80053; 83880; 85025

== ENCOUNTER 2023-06-07 11:27 | Emergency (ER) | payer OTHER ==
--- OUTSIDE RECORDS SUMMARY | 2023-06-07 11:30 | XMS REPORT | Continuity of Care Document ---
Author Name Unknown Address [address] [place] [address] [address] thconnect Address [address] [facility] 1 [address] [place] [address] Care Team Providers Care Appliance Technician Name Role Phone Cindy-Mbayo_A_AH Attending Clinician Unavailable Cindy-Mbayo_A_AH Admitting Clinician Unavailable Payers Payer Name Policy Type Policy Number Effective Date Expirati on Date Source [facility] (MEDICARE REPLACEMENT/ADVANT AGE - HMO) [id number] 00:00:00 Encounters Start Date/Time End Date/Time Encounter Type Admission Type Attending Clinicians Care Facility Care Department Encounter ID Source 2019-04-25 07:18:00 2019-04-25 07:18:00 Outpatient Cindy-Mbayo _A_AH [facility] P [id number] [facility] e
[2023-06-07] MEDS ORDERED: HYDROCODONE/APAP 10/325 TAB ONE (11:45)
--- NOTE | 2023-06-07 11:57 | RAD REPORT ---
EXAM DESCRIPTION: RAD - Foot Left 3 View - 06/07/2023 11:47 am CLINICAL HISTORY: PAIN COMPARISON: No comparisons FINDINGS/IMPRESSION: No acute fracture. No malalignment. Plantar aspect calcaneal spurring. Mild mid foot degenerative changes.
--- NOTE | 2023-06-07 12:14 | EDPHYS ---
Physician Documentation [facility] Name: Reynaldo Perdomo Age: 77 yrs Sex: Male : 1945 Arrival Date: 06/07/2023 Time: 11:27 Bed 6 Private MD: ED Physician Rasheed Weeks HPI: 06/06 11:38 This 77 yrs old Male presents to ER via EMS with complaints of Foot Pain. rt 11:38 Patient presents to the ED with a left foot pain. Patient states that he was pedaling rt an exercise machine while he was on his couch. Patient states that he felt the pain to the top of the foot with some mild swelling medially after that. Pain was worse with bearing weight. Denies other acute complaints at this time, symptoms are mild in severity, no other aggravating or alleviating factors.. Historical: - Allergies: 11:35 No Known Allergies; ko1 - PMHx: 11:35 Hypercholesterolemia; Hypothyroidism; Kidney stones; NH; Hypertension; stroke; ko1 - Immunization history:: Adult Immunizations up to date. - Infectious Disease History:: Denies. - Social history:: Smoking status: Patient denies any tobacco usage or history of. - Family history:: not pertinent. ROS: 11:38 Constitutional: Negative for fever, chills, and weight loss, Cardiovascular: Negative rt for chest pain, palpitations, and edema, Respiratory: Negative for shortness of breath, cough, wheezing, and pleuritic chest pain, Abdomen/GI: Negative for abdominal pain, nausea, vomiting, diarrhea, and constipation, Skin: Negative for injury, rash, and discoloration, Neuro: Negative for headache, weakness, numbness, tingling, and seizure, 11:38 MS/extremity: Positive for pain, swelling, Exam: 11:38 Constitutional: This is a well developed, well nourished patient who is awake, alert, rt and in no acute distress. Head/Face: Normocephalic, atraumatic. Chest/axilla: Normal chest wall appearance and motion. Nontender with no deformity. No lesions are appreciated. Cardiovascular: Regular rate and rhythm with a normal S1 and S2. No gallops, murmurs, or rubs. Normal PMI, no JVD. No pulse deficits. Respiratory: Lungs have equal breath sounds bilaterally, clear to auscultation and percussion. No rales, rhonchi or wheezes noted. No increased work of breathing, no retractions or nasal flaring. Abdomen/GI: Soft, non-tender, with normal bowel sounds. No distension or tympany. No guarding or rebound. No evidence of tenderness throughout. Skin: Warm, dry with normal turgor. Normal color with no rashes, no lesions, and no evidence of cellulitis. Neuro: Awake and alert, GCS 15, oriented to person, place, time, and situation. Cranial nerves II-XII grossly intact. Motor strength 5/5 in all extremities. Sensory grossly intact. Cerebellar exam normal. Normal gait. 11:38 Musculoskeletal/extremity: Minimal swelling to the left foot. There is mild tenderness on the dorsum of the midfoot, no deformities noted. No calf, popliteal fossa tenderness or swelling. Pulses, motor, sensation are intact. Vital Signs: 11:35 BP 133 / 52; Pulse 51; Resp 15; Temp 98; Pulse Ox 99% ; ko1 12:28 BP 159 / 55; Pulse 56; Resp 15; Temp 97; Pulse Ox 100% ; ko1 MDM: 11:31 Patient medically screened. rt 12:14 Differential Diagnosis Fracture, sprain, arthritis. Data reviewed: vital signs, nurses rt notes, radiologic studies. Independent interpretation of the following test(s) in the Emergency Department X-Ray: My interpretation is No fracture seen on interpretation of x-ray images. Test considered but Not performed: Ultrasound No proximal symptoms, no clinical evidence to suggest DVT, ultrasound is not indicated. Care significantly affected by the following chronic conditions: Coronary artery disease. Counseling: I had a detailed discussion with the patient and/or guardian regarding the historical points, exam findings, and any diagnostic results supporting the discharge/admit diagnosis, radiology results, the need for outpatient follow up, to return to the emergency department if symptoms worsen or persist or if there are any questions or concerns that arise at home. Response to treatment: the patient's symptoms have markedly improved after treatment. 04 11:31 Order name: Foot Left 3 View XRAY; Complete Time: 11:58 rt 06/06 12:13 Order name: Orthopedic shoe; Complete Time: 12:15 rt Administered Medications: 11:47 Drug: [place] PO 10 mg-325 mg 1 tabs PO once Route: PO; ph 12:15 Follow up: Response: No adverse reaction; Pain is decreased ko1 Disposition Summary: 06/07/23 12:13 Discharge Ordered Notes: Location: Home rt Problem: new rt Symptoms: have improved rt Condition: Stable rt Diagnosis - Pain in left foot rt Followup: rt - With: Private Physician - When: 2 - 3 days - Reason: Discharge Instructions: - Discharge Summary Sheet rt - Foot Pain rt Forms: - Medication Reconciliation Form rt - Thank You Letter rt - Antibiotic Education rt - Prescription Opioid Use rt - Patient Portal Instructions rt - Leadership Thank You Letter rt Prescriptions: - Ultram 50 mg Oral Tablet - take 1 tablet ORAL route every 6 hours As needed; 12 tablet; Refills: 0, rt Product Selection Permitted Signatures: Dispatcher [employer] Gloria Damon, RN RN Shama Ramon RN RN ko1 Rasheed Weeks MD MD rt
--- NOTE | 2023-06-07 12:14 | ER ---
Nurse's Notes [facility] Name: Reynaldo Perdomo Age: 77 yrs Sex: Male : 1945 Arrival Date: 06/07/2023 Time: 11:27 Bed 6 Private MD: Diagnosis: Pain in left foot Presentation: 06/06 11:31 Chief complaint: EMS states: patient was using stationary pedal machine at home, got up ko1 and left foot was hurting, took a few steps and it became too painful to walk. Coronavirus screen: At this time, the client does not indicate any symptoms associated with coronavirus-19. Ebola Screen: No symptoms or risks identified at this time. Initial Sepsis Screen: Does the patient meet any 2 criteria? No. Patient's initial sepsis screen is negative. Does the patient have a suspected source of infection? No. Patient's initial sepsis screen is negative. Risk Assessment: Do you want to hurt yourself or someone else? Patient reports no desire to harm self or others. Onset of symptoms was June 07, 2023. 11:31 Method Of Arrival: EMS: [facility] ko1 11:31 Acuity: GIANFRANCO 4 ko1 Triage Assessment: 11:35 General: Appears in no apparent distress. Behavior is calm, cooperative, appropriate ko1 for age. Pain: Complains of pain in dorsum of left foot. Historical: - Allergies: 11:35 No Known Allergies; ko1 - PMHx: 11:35 Hypercholesterolemia; Hypothyroidism; Kidney stones; HI; Hypertension; stroke; ko1 - Immunization history:: Adult Immunizations up to date. - Infectious Disease History:: Denies. - Social history:: Smoking status: Patient denies any tobacco usage or history of. - Family history:: not pertinent. Screenin:[facility] ED Fall Risk Assessment (Adult) History of falling in the last 3 months, ko1 including since admission No falls in past 3 months (0 pts) Confusion or Disorientation No (0 pts) Intoxicated or Sedated No (0 pts) Impaired Gait No (0 pts) Mobility Assist Device Used No (0 pt) Altered Elimination No (0 pt) Score/Fall Risk Level 0 - 2 = Low Risk Oriented to surroundings, Maintained a safe environment, Educated pt \T\ family on fall prevention, incl call for assistance when getting out of bed, Assessed \T\ reinforced patient's understanding of fall precautions, Provided non-skid footwear, Hourly rounding (assess needs \T\ fall precautionary measures) done, Used ambulatory aids as needed (educated on \T\ assisted with), Used gait belt as appropriate. Abuse screen: Denies threats or abuse. Denies injuries from another. Nutritional screening: No deficits noted. Tuberculosis screening: No symptoms or risk factors identified. Assessment: 11:39 Neuro: No deficits noted. Cardiovascular: No deficits noted. Respiratory: No deficits ko1 noted. GI: No deficits noted. : No deficits noted. EENT: No deficits noted. Derm: No deficits noted. Musculoskeletal: Reports pain in dorsum of left foot. Vital Signs: 11:35 BP 133 / 52; Pulse 51; Resp 15; Temp 98; Pulse Ox 99% ; ko1 12:28 BP 159 / 55; Pulse 56; Resp 15; Temp 97; Pulse Ox 100% ; ko1 ED Course: 11:28 Patient arrived in ED. ec2 11:31 Shama Black RN is Primary Nurse. ko1 11:31 Rasheed Weeks MD is Attending Physician. rt 11:35 Triage completed. ko1 11:35 Arm band placed on right wrist. Patient placed in an exam room, on a stretcher, on ko1 pulse oximetry, Patient notified of wait time. 11:39 Patient has correct armband on for positive identification. Bed in low position. Call ko1 light in reach. Side rails up X 1. Pulse ox on. NIBP on. Door closed. Noise minimized. 11:39 No provider procedures requiring assistance completed. ko1 11:49 Foot Left 3 View XRAY In Process Unspecified. EDMS 12:00 Assisted to bathroom. Assisted with urinal. ko1 12:25 Ortho shoe applied to left foot. ko1 12:28 Provided Education on: na. ko1 12:28 Patient did not have IV access during this emergency room visit. ko1 Administered Medications: 11:47 Drug: [place] PO 10 mg-325 mg 1 tabs PO once Route: PO; ph 12:15 Follow up: Response: No adverse reaction; Pain is decreased ko1 Medication: 12:28 VIS not applicable for this client. ko1 Outcome: 12:13 Discharge ordered by . rt 12:29 Discharged to home via wheelchair, with family, koOanh 12:29 Condition: stable 12:29 Discharge instructions given to patient, Instructed on discharge instructions, follow up and referral plans. medication usage, Demonstrated understanding of instructions, follow-up care, medications, Prescriptions given X 1, 12:30 Patient left the ED. ko1 Signatures: Dispatcher [employer] Gloria Damon RN RN Shama Black RN RN ko1 Rasheed Weeks MD MD rt Kavin Jaime MD MD ec2
[2023-06-07 18:07] VITALS: BP 159/55; TEMP 97; O2SAT 100
== END 2023-06-07 12:30 | disposition home or self-care (01) ==
LOC: ER 11:27
DX: M79.672 Pain in left foot (principal)
CPT/HCPCS: 99284

== ENCOUNTER 2024-02-25 19:08 | Inpatient (IN) | payer OTHER ==
--- OUTSIDE RECORDS SUMMARY | 2024-02-25 19:11 | XMS REPORT | Continuity of Care Document ---
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
[2024-02-25] MEDS ORDERED: ACETAMINOPHEN 500 MG TAB ONE (19:50)
[2024-02-25] MEDS ORDERED: NA CHLORIDE 0.9% 500 ML ONE ×2 (19:51→20:49)
[2024-02-25 19:57] LABS: Absolute Lymphocytes (CBC) 0.3 K/uL (0.7-4.9); Absolute Monocytes 0.4 K/uL (0.1-1.3); Basophils % 0.3 % (0-1.3); Hematocrit 39.1 % (39.6-49.0); Hemoglobin 13.7 g/dL (13.6-17.9); Lymphocytes % 2.7 % (15.3-44.8); MCH 31.6 pg (27.0-35.0); MCHC 35.1 g/dL (32.0-36.0); MCV 89.9 fL (80-100); MPV 7.4 fL (7.6-11.3); Monocytes % 4.6 % (3.3-12.3); Neutrophils % 92.4 % (41.7-73.7); Nucleated Red Blood Cells % 0.1 % (0-0); Platelets 114 thou/uL (152-406); RBC Red Blood Cell Count 4.35 M/uL (4.33-5.43); Red Cell Distribution Width 14.1 % (12.1-15.2)
--- NOTE | 2024-02-25 20:01 | RAD REPORT ---
EXAM: Chest Single View HISTORY: FEVER COMPARISON: 09/05/2022 FINDINGS: LUNGS/PLEURA: The lungs are clear. No pleural effusions or pneumothorax. No pulmonary edema. MEDIASTINUM: The mediastinal silhouette is within normal limits. CARDIAC: Within normal limits. UPPER ABDOMEN: No significant abnormality. BONES: No acute fracture. LINES/TUBES/OTHER: N/A IMPRESSION: No evidence of acute cardiopulmonary disease.
[2024-02-25 20:04] LABS: PT Prothrombin Time 15.7 SECONDS (9.4-12.5); Protime INR 1.42
[2024-02-25 20:14] LABS: Albumin 3.5 g/dL (3.4-5.0); Albumin/Globulin Ratio 0.9 (1.1-1.8); Bilirubin Total 1.4 mg/dL (0.2-1.0); Protein, Total 7.5 g/dL (6.4-8.2)
[2024-02-25] MEDS ORDERED: CEFTRIAXONE 1000 MG/VIAL ONE (20:49)
--- NOTE | 2024-02-25 21:09 | RAD REPORT ---
EXAMINATION: CT HEAD WITHOUT CONTRAST CLINICAL INDICATION: Male, 78 years old.SYNCOPE TECHNIQUE: Axial CT images from the skull base to the vertex without intravenous contrast. Coronal an d sagittal reformatted images were created from the data set. One or more of the following dose reduction techniques were used: Automated exposure control, adjustment of the mA and/or kV according to patient size, and/or iterative reconstruction. Unless otherwise specified, incidental findings do not require dedicated imaging follow-up. [id number]. COMPARISON: No prior exam. FINDINGS: INTRACRANIAL: No acute intracranial hemorrhage. No hydrocephalus. No mass effect or midline shift. Mi ld chronic small vessel ischemic changes.Age advanced cerebral atrophy. VASCULATURE: No visualized abnormalities in the arteries or dural venous sinuses. SCALP/SKULL: No significant soft tissue or osseous abnormalities. SINUSES: Trace right maxillary sinus mucosal thickening. No mastoid effusion. IMPRESSION: No acute intracranial abnormality.
--- NOTE | 2024-02-25 21:18 | RAD REPORT ---
EXAMINATION: CT ABDOMEN AND PELVIS WITHOUT CONTRAST CLINICAL INDICATION: Male, 78 years old.dysuria TECHNIQUE: CT abdomen and pelvis was performed, without IV contrast, as per department protocol. Axia l, sagittal and coronal reconstructions were obtained. One or more of the following dose reduction techniques were used: Automated exposure control, adjustment of the mA and/or kV according to the pat ient size, and/or iterative reconstruction. Unless otherwise specified, incidental findings do not require dedicated imaging follow-up. [id number]. IV CONTRAST: Not administered. COMPARISON: 03/16/2020 FINDINGS: The lack of intravenous contrast limits the sensitivity of this exam for evaluation of solid visceral organs, vascular structures, and retroperitoneum. LOWER CHEST: Small pericardial effusion. Coronary calcifications. Cardiomegaly. LIVER: Nodular liver contour. GALLBLADDER/BILE DUCTS: No biliary ductal dilatation.? PANCREAS: No mass, ductal dilation, or melva-pancreatic fluid. SPLEEN: Splenomegaly. ADRENALS: Normal; no mass. KIDNEYS AND URETERS: Several low-density renal lesions which are likely cysts. No ureteral calculi. URINARY BLADDER: Bladder wall thickening. Nonspecific soft tissue prominence along the ventral aspect of the bladder. GASTROINTESTINAL TRACT: Diverticulosis. No evidence of acute diverticulitis. Moderate colonic stool. No appendicitis. Partial small bowel resection. PERITONEUM: No free fluid. Fat-containing inguinal hernias. Small Chandler-type hernia in the periumbi lical region is seen on image 66, series 301 but without evidence of bowel obstruction or inflammatory changes. ABDOMINAL AORTA AND OTHER VESSELS: Normal caliber aorta and IVC. Atherosclerosis. REPRODUCTIVE ORGANS: Prostatomegaly. MUSCULOSKELETAL: No acute or suspicious osseous abnormality. ADDITIONAL FINDINGS: None. IMPRESSION: No acute abnormalities in the abdomen or pelvis, with evaluation limited by lack of IV contrast. Chandler-type hernia in the periumbilical region containing a knuckle of small bowel but without compl icating features. Circumferential bladder wall thickening with stranding could reflect cystitis. Note is made of 2 prot rusions along the ventral aspect of the bladder that may be lesions or small decompressed diverticula with inflammation. Consider outpatient urology referral.
--- NOTE | 2024-02-25 22:10 | EDPHYS ---
Physician Documentation [facility] Name: Reynaldo Perdomo Age: 78 yrs Sex: Male : 1945 Arrival Date: 02/25/2024 Time: 19:08 Bed 2 Private MD: ED Physician Srinath Dominique HPI: 02/24 19:30 This 78 yrs old Male presents to ER via EMS with complaints of Urinary Problem.cp 19:30 The patient presents with urinary symptoms, dysuria. cp 19:30 Onset: The symptoms/episode began/occurred few days. cp 19:30 Associated signs and symptoms: Pertinent positives: fever, reports general weakness and cp loss of consciousness prior to arrival, Pertinent negatives: abdominal pain, constipation, vomiting. Severity of symptoms: in the emergency department the symptoms are unchanged, despite home interventions. Historical: - Allergies: 19:37 No Known Allergies; al5 - PMHx: 19:37 Hypercholesterolemia; Hypertension; Hypothyroidism; Kidney stones; GA; stroke; al5 - PSHx: 19:37 cardiac stents; al5 - Immunization history:: Adult Immunizations up to date. - Infectious Disease History:: Denies. - Social history:: Smoking status: Patient denies any tobacco usage or history of. ROS: 19:35 Constitutional: Positive for fever, cp 19:35 Eyes: Negative for injury, pain, redness, and discharge, cp 19:35 ENT: Negative for drainage from ear(s), ear pain, sore throat, difficulty swallowing, difficulty handling secretions, 19:35 Cardiovascular: Negative for chest pain, palpitations, 19:35 Respiratory: Negative for shortness of breath, wheezing, 19:35 Abdomen/GI: Negative for abdominal pain, vomiting, diarrhea, constipation, 19:35 : Positive for burning with urination, 19:35 Neuro: Positive for syncope, weakness, Negative for altered mental status, headache, 19:35 All other systems are negative, Exam: 19:40 Constitutional: The patient appears in no acute distress, alert, awake, cp non-diaphoretic, non-toxic, well developed, well nourished, febrile, obese, 19:40 Head/Face: Normocephalic, atraumatic. cp 19:40 Eyes: Periorbital structures: appear normal, Pupils: equal, round, and reactive to light and accomodation, Extraocular movements: intact throughout, Conjunctiva: normal, no exudate, no injection, Sclera: no appreciated abnormality, Lids and lashes: appear normal, bilaterally, 19:40 ENT: External ear(s): are unremarkable, Nose: is normal, Mouth: Lips: moist, Oral mucosa: moist, Posterior pharynx: Airway: no evidence of obstruction, patent, 19:40 Neck: ROM/movement: is normal, is supple, without pain, no range of motions limitations, 19:40 Chest/axilla: Inspection: normal, 19:40 Cardiovascular: Rate: normal, Rhythm: regular, Edema: ankle edema, that is very mild, JVD: is not appreciated, 19:40 Respiratory: the patient does not display signs of respiratory distress, Respirations: normal, no use of accessory muscles, no retractions, labored breathing, is not present, Breath sounds: are clear throughout, no decreased breath sounds, no stridor, no wheezing, 19:40 Abdomen/GI: Inspection: obese Palpation: abdomen is soft and non-tender, in all quadrants, 19:40 Back: CVA tenderness, is absent, 19:40 Neuro: Orientation: to person, place \T\ time. Mentation: is normal, Motor: moves all fours, no focal deficits, Sensation: is normal, Vital Signs: 19:31 BP 161 / 52; Pulse 83; Resp 18; Temp 101.2; Pulse Ox 94% on R/A; Weight 122.02 kg; al5 Height 5 ft. 11 in. ; 21:55 BP 154 / 53; Pulse 68; Resp 21; Temp 98.3; Pulse Ox 94% on R/A; Pain 0/10; bm8 22:53 BP 152 / 65; Pulse 66; Resp 18; Temp 98.3; Pulse Ox 95% ; Pain 0/10; bm8 19:31 Body Mass Index 37.52 (122.02 kg, 180.34 cm) al5 21:55 Pain Scale: Adult bm8 22:53 Pain Scale: Adult bm8 [place] Coma Score: 19:57 Eye Response: spontaneous(4). Motor Response: obeys commands(6). Verbal Response: bm8 oriented(5). Total: 15. 21:55 Eye Response: spontaneous(4). Motor Response: obeys commands(6). Verbal Response: bm8 oriented(5). Total: 15. 22:53 Eye Response: spontaneous(4). Motor Response: obeys commands(6). Verbal Response: bm8 oriented(5). Total: 15. MDM: 19:20 Medical Screening Exam initiated cp 21:48 Data reviewed: vital signs, nurses notes, lab test result(s), EKG, radiologic studies, cp CT scan, plain films. ED course: review of vitals, labs, radiology studies. Concern for severe sepsis but urine results not available and [address] abdomen/pelvis shows bladder inflammation concerning for cystitis, sirs criteria: temp of 101.2 only, organ dysfunction: 2.2 lactate. Will admit. 2 liter NS bolus given due to volume overload concern. 02/24 19:26 Order name: Blood Culture Adult (2) cp 02/24 19:26 Order name: CBC with Diff; Complete Time: 20:35 cp 02/24 20:35 Interpretation: Normal except: HCT 39.1; PLT 114; MPV 7.4; TOM% 92.4; LYM% 2.7; NEUT A cp 9.0; LYMA 0.3. 02/24 19:26 Order name: CMP; Complete Time: 20:35 cp 02/24 20:36 Interpretation: Normal except: NA 134; GLUC 121; BUN 21; CRE 1.72; GFR 40; BILIT 1.4; cp GLOB 4.0; A/G 0.9. 02/24 19:26 Order name: Lactate w/ 2H reflex if indic.; Complete Time: 20:35 cp 02/24 20:36 Interpretation: LAC 2.4; Reviewed. cp 02/24 19:26 Order name: Protime (+inr); Complete Time: 20:35 cp 02/24 19:26 Order name: Ptt, Activated; Complete Time: 20:35 cp 02/24 19:26 Order name: Urinalysis w/ reflexes 02/24 20:23 Order name: Ghost Lactate-NO COLLECT Timer EDKS 02/24 22:16 Order name: Lactate w/ 2H reflex if indic. EDMS 02/24 22:16 Order name: Magnesium EDMS 02/24 22:16 Order name: NT PRO-BNP EDKS 02/24 22:16 Order name: Phosphorus EDMS 02/24 22:16 Order name: Urinalysis w/ reflexes EDMS 02/24 22:16 Order name: Basic Metabolic Panel EDMS 02/24 22:16 Order name: Basic Metabolic Panel EDKS 02/24 22:16 Order name: CBC with Automated Diff EDMS 02/24 22:16 Order name: CBC with Automated Diff EDMS 02/24 22:16 Order name: Troponin High Sensitivity EDMS 02/24 22:16 Order name: Troponin High Sensitivity EDMS 02/24 22:16 Order name: Troponin High Sensitivity EDMS 02/24 22:16 Order name: Troponin High Sensitivity EDMS 02/24 22:55 Order name: Lactate Sepsis 2 HR Follow-up EDMS 02/24 19:26 Order name: Chest Single View XRAY; Complete Time: 20:35 cp 02/24 20:38 Order name: CT Head Brain wo Cont; Complete Time: 21:41 cp 02/24 21:41 Interpretation: Report reviewed. cp 02/24 20:38 Order name: CT Abd/Pelvis - Without Contrast; Complete Time: 21:41 cp 02/24 22:17 Order name: Echo with Doppler EDMS 02/24 22:17 Order name: Occupational Therapy Consult EDKS 02/24 22:17 Order name: Physical Therapy Consult EDKS 02/24 19:26 Order name: Cardiac monitoring; Complete Time: 19:56 cp 02/24 19:26 Order name: EKG - Nurse/Tech; Complete Time: 19:56 cp 02/24 19:26 Order name: IV Saline Lock - Large Bore; Complete Time: 19:56 cp 02/24 19:26 Order name: Labs collected and sent; Complete Time: 19:56 cp 02/24 19:26 Order name: O2 Per Protocol; Complete Time: 19:56 cp 02/24 19:26 Order name: O2 Sat Monitoring; Complete Time: 19:56 cp 02/24 19:26 Order name: Vital Signs; Complete Time: 19:56 cp Administered Medications: 19:56 Drug: Acetaminophen PO 1000 mg PO once Route: PO; bm8 21:10 Follow up: Response: No adverse reaction bm8 19:56 Drug: NS 0.9% IV 500 ml 500 ml IV at 1 bolus once; to be given as a bolus over 60 bm8 minutes Volume: 500 ml; Route: IV; Rate: 1 bolus; Site: left forearm; 20:31 Follow up: Response: No adverse reaction; IV Status: Completed infusion; IV Intake: al5 500ml 21:10 Follow up: Response: No adverse reaction; IV Status: Completed infusion; IV Intake: bm8 500ml 21:10 Drug: Rocephin IV 1 grams IV at calculated rate once; Given slow IV push per pharmacy bm8 instructions Route: IV; Rate: calculated rate; Site: left forearm; 21:56 Follow up: Response: No adverse reaction; IV Status: Completed infusion; IV Intake: [id number] 21:10 Drug: NS 0.9% IV 500 ml 500 ml IV at 1 bolus once; to be given as a bolus over 60 bm8 minutes Volume: 500 ml; Route: IV; Rate: 1 bolus; Site: left forearm; 21:55 Follow up: Response: No adverse reaction; IV Status: Completed infusion; IV Intake: bm8 500ml 22:52 Drug: NS 0.9% IV 1000 ml IV at 1000 ml once; to be given as a bolus over 60 minutes bm8 Route: IV; Rate: 1000 ml; Site: left forearm; 22:53 Follow up: Response: No adverse reaction; IV Status: Infusion continued upon admission bm8 Disposition Summary: 02/25/24 22:10 Hospitalization Ordered Notes: Hospitalization Status: Inpatient Admission cp Provider: Prince booker Aparicio [facility] cp Condition: Stable cp Problem: new cp Symptoms: have improved cp Bed/Room Type: Standard cp Room Assignment: 431(02/25/24 22:24) rv1 Diagnosis - Acute cystitis cp - Severe sepsis without septic shock cp Forms: - Medication Reconciliation Form cp - SBAR form cp - Leadership Thank You Letter cp Signatures: Dispatcher [employer] EDMS Brandon Parish PA PA cp Jazzmine Hayes rv1 Robert Singleton, RN RN bm8 Georgiana Garrett RN RN al5 Corrections: (The following items were deleted from the chart) 19:27 19:27 BLOOD CULTURE*+BA.LAB.BRZ ordered. EDMS EDMS 19:27 19:27 CBC+H.LAB.BRZ ordered. EDMS EDMS 19:27 19:27 COMPREHENSIVE METABOLIC PANEL+C.LAB.BRZ ordered. EDMS EDMS 19:27 19:27 LACTATE+C.LAB.BRZ ordered. EDMS EDMS 19:27 19:27 PROTIME (+INR)+COAG.LAB.BRZ ordered. EDMS EDMS 19:27 19:27 PTT, ACTIVATED+COAG.LAB.BRZ ordered. EDMS EDMS 19: 19:27 Urinalysis+U.LAB.BRZ ordered. EDMS EDMS 19:27 19:27 Chest Single View+RAD.RAD.BRZ ordered. EDMS EDMS 19:56 19:26 Accucheck ordered. cp bm8 21:59 21:48 ED course: review of vitals, labs, radiology studies. Concern for severe sepsis cp but urine results not available and [address] abdomen/pelvis shows bladder inflammation concerning for cystitis, sirs criteria: temp of 101.2 only, organ dysfunction: 2.2 lactate. Will admit. 1 liter NS bolus given due to CHF concern. cp 22:24 22:10 cp rv1
--- NOTE | 2024-02-25 22:10 | ER ---
Nurse's Notes [facility] Name: Reynaldo Perdomo Age: 78 yrs Sex: Male : 1945 Arrival Date: 02/25/2024 Time: 19:08 Bed 2 Private MD: Diagnosis: Acute cystitis;Severe sepsis without septic shock Presentation: 02/24 19:31 Chief complaint: Patient states: states he has been having burning with urination, uti al5 like symptoms for a few days. today states he has been having fever and has been feeling dizzy. states he called ems to be seen for the uti, then fell. denies head strike. Coronavirus screen: At this time, the client does not indicate any symptoms associated with coronavirus-19. Ebola Screen: No symptoms or risks identified at this time. Initial Sepsis Screen: Does the patient meet any 2 criteria? Temp <36.0*C (96.8*F)) or > 38.3*C (100.9*F). No. Patient's initial sepsis screen is negative. Initial Sepsis Screen: Does the patient have a suspected source of infection? No. Patient's initial sepsis screen is negative. Risk Assessment: Do you want to hurt yourself or someone else? Patient reports no desire to harm self or others. Onset of symptoms was February 25, 2024. 19:31 Method Of Arrival: EMS: [facility] al5 19:31 Acuity: GIANFRANCO 3 al5 Triage Assessment: 19:37 General: Appears in no apparent distress. uncomfortable, Behavior is calm, cooperative. al5 Pain: Complains of pain in groin. EENT: No signs and/or symptoms were reported regarding the EENT system. Neuro: Level of Consciousness is awake, alert, obeys commands, Oriented to person, place, time, situation. Cardiovascular: Capillary refill < 3 seconds Patient's skin is warm and dry. Respiratory: Airway is patent Respiratory effort is even, unlabored, Respiratory pattern is regular, symmetrical. GI: Abdomen is round non-distended, obese. : Reports burning with urination, urgency, urinary frequency. Derm: Skin is intact, Skin is normal. Musculoskeletal: No signs and/or symptoms reported regarding the musculoskeletal system. Historical: - Allergies: 19:37 No Known Allergies; al5 - PMHx: 19:37 Hypercholesterolemia; Hypertension; Hypothyroidism; Kidney stones; [place]; stroke; al5 - PSHx: 19:37 cardiac stents; al5 - Immunization history:: Adult Immunizations up to date. - Infectious Disease History:: Denies. - Social history:: Smoking status: Patient denies any tobacco usage or history of. Screenin:39 [facility] ED Fall Risk Assessment (Adult) History of falling in the last 3 months, al5 including since admission Yes- physiologic fall (2 pts) Confusion or Disorientation No (0 pts) Intoxicated or Sedated No (0 pts) Impaired Gait No (0 pts) Mobility Assist Device Used No (0 pt) Altered Elimination Yes (1 pt) Score/Fall Risk Level 3 or more points = High Risk Oriented to surroundings, Maintained a safe environment, Provided non-skid footwear, Hourly rounding (assess needs \T\ fall precautionary measures) done. Abuse screen: Denies threats or abuse. Denies injuries from another. Nutritional screening: No deficits noted. Tuberculosis screening: No symptoms or risk factors identified. Assessment: 19:39 Reassessment: see triage assessment. al5 19:57 General: Appears in no apparent distress. comfortable, Behavior is calm, cooperative, bm8 appropriate for age. Pain: Complains of pain in pelvis Pain currently is 4 out of 10 on a pain scale. Neuro: No deficits noted. Level of Consciousness is awake, alert, obeys commands, Oriented to person, place, time, situation, Appropriate for age. Cardiovascular: Reports lightheadedness, Denies chest pain, Heart tones S1 S2 present. Respiratory: Airway is patent Trachea midline Respiratory effort is even, unlabored, Respiratory pattern is regular, symmetrical, Denies shortness of breath. GI: No signs and/or symptoms were reported involving the gastrointestinal system. : Reports burning with urination, since a few days pain with urination. EENT: No signs and/or symptoms were reported regarding the EENT system. Derm: No signs and/or symptoms reported regarding the dermatologic system. Musculoskeletal: No signs and/or symptoms reported regarding the musculoskeletal system. 21:55 Reassessment: Patient appears in no apparent distress at this time. Patient and/or bm8 family updated on plan of care and expected duration. Pain level reassessed. Patient is alert, oriented x 3, equal unlabored respirations, skin warm/dry/pink. Patient denies pain at this time. Patient states feeling better. Patient states symptoms have improved. 22:53 Reassessment: Patient appears in no apparent distress at this time. No changes from bm8 previously documented assessment. Patient and/or family updated on plan of care and expected duration. Pain level reassessed. Patient is alert, oriented x 3, equal unlabored respirations, skin warm/dry/pink. Vital Signs: 19:31 BP 161 / 52; Pulse 83; Resp 18; Temp 101.2; Pulse Ox 94% on R/A; Weight 122.02 kg; al5 Height 5 ft. 11 in. ; 21:55 BP 154 / 53; Pulse 68; Resp 21; Temp 98.3; Pulse Ox 94% on R/A; Pain 0/10; bm8 22:53 BP 152 / 65; Pulse 66; Resp 18; Temp 98.3; Pulse Ox 95% ; Pain 0/10; bm8 19:31 Body Mass Index 37.52 (122.02 kg, 180.34 cm) al5 21:55 Pain Scale: Adult bm8 22:53 Pain Scale: Adult bm8 [place] Coma Score: 19:57 Eye Response: spontaneous(4). Motor Response: obeys commands(6). Verbal Response: bm8 oriented(5). Total: 15. 21:55 Eye Response: spontaneous(4). Motor Response: obeys commands(6). Verbal Response: bm8 oriented(5). Total: 15. 22:53 Eye Response: spontaneous(4). Motor Response: obeys commands(6). Verbal Response: bm8 oriented(5). Total: 15. ED Course: 19:16 Patient arrived in ED. rv1 19:20 Brandon Parish PA is PHCP. cp 19:20 Srinath Dominique MD is Attending Physician. cp 19:31 Georgiana Garrett RN is Primary Nurse. al5 19:37 Triage completed. al5 19:39 Arm band placed on right wrist. Patient placed in the treatment room, on a stretcher, al5 on pulse oximetry. 19:39 Patient has correct armband on for positive identification. Placed in gown. Bed in low al5 position. Call light in reach. Side rails up X2. Provided Education on: plan of care. 19:39 No provider procedures requiring assistance completed. al5 19:40 Initial lab(s) drawn, by me, sent to lab. First set of blood cultures drawn by me. bm8 Inserted saline lock: 20 gauge in left forearm, using aseptic technique. ,using aseptic technique. ultrasound guided Blood collected. Flushed with 10 mL NS. 19:52 Chest Single View XRAY In Process Unspecified. EDMS 19:57 Client placed on continuous cardiac and pulse oximetry monitoring. NIBP monitoring bm8 applied. surgical instruments inspector on. Pulse ox on. NIBP on. Door closed. Noise minimized. Pillow given. Verbal reassurance given. Head of bed elevated. 21:02 CT Head Brain wo Cont In Process Unspecified. EDMS 21:02 CT Abd/Pelvis - Without Contrast In Process Unspecified. EDMS 21:55 Hanks cath inserted, using sterile technique, 14 Fr., by me, to gravity drainage, urine bm8 specimen collected. Patient tolerated poorly. 22:09 Prince Aparicio MD is Hospitalizing Provider. 22:53 Provided Education on: need for admission. bm8 22:53 Patient admitted, IV remains in place. bm8 Administered Medications: 19:56 Drug: Acetaminophen PO 1000 mg PO once Route: PO; bm8 21:10 Follow up: Response: No adverse reaction bm8 19:56 Drug: NS 0.9% IV 500 ml 500 ml IV at 1 bolus once; to be given as a bolus over 60 bm8 minutes Volume: 500 ml; Route: IV; Rate: 1 bolus; Site: left forearm; 20:31 Follow up: Response: No adverse reaction; IV Status: Completed infusion; IV Intake: al5 500ml 21:10 Follow up: Response: No adverse reaction; IV Status: Completed infusion; IV Intake: bm8 500ml 21:10 Drug: Rocephin IV 1 grams IV at calculated rate once; Given slow IV push per pharmacy bm8 instructions Route: IV; Rate: calculated rate; Site: left forearm; 21:56 Follow up: Response: No adverse reaction; IV Status: Completed infusion; IV Intake: [id number] 21:10 Drug: NS 0.9% IV 500 ml 500 ml IV at 1 bolus once; to be given as a bolus over 60 bm8 minutes Volume: 500 ml; Route: IV; Rate: 1 bolus; Site: left forearm; 21:55 Follow up: Response: No adverse reaction; IV Status: Completed infusion; IV Intake: bm8 500ml 22:52 Drug: NS 0.9% IV 1000 ml IV at 1000 ml once; to be given as a bolus over 60 minutes bm8 Route: IV; Rate: 1000 ml; Site: left forearm; 22:53 Follow up: Response: No adverse reaction; IV Status: Infusion continued upon admission bm8 Medication: 19:39 VIS not applicable for this client. al5 Intake: 20:31 IV: 500ml; Total: 500ml. al5 21:10 IV: 500ml; Total: 1000ml. bm8 21:55 IV: 500ml; Total: 1500ml. bm8 21:56 IV: 10ml; Total: 1510ml. bm8 Outcome: 22:10 Decision to Hospitalize by Provider. cp 22:53 Admitted to Med/surg accompanied by tech, via stretcher, bm8 22:53 Condition: stable 22:53 Instructed on the need for admit, Demonstrated understanding of instructions, follow-up care, 23:14 Patient left the ED. bm8 Signatures: Dispatcher [employer] EDMS Brandon Parish PA PA cp Villegas, Rebecca rv1 Robert Singleton, RN RN bm8 Georgiana Garrett RN RN al5
[2024-02-25] MEDS ORDERED: ONDANSETRON 4 MG/2 ML VIAL IV PRN (22:12)
[2024-02-25 22:25] LABS: Specific Gravity 1.024 (1.005-1.030); Sqamous Epithelial None Seen /HPF (None Seen); Urine Bacteria <20 /HPF (<20); Urine Bilirubin NEGATIVE (Negative); Urine Blood 3+ (Negative); Urine Clarity Extremely Turbid (Clear); Urine Color Yellow (Yellow); Urine Crystals Unidentified Moderate /HPF (None Seen); Urine Culture Reflex Order REFLEXED; Urine Glucose NEGATIVE (Negative); Urine Granular Casts 0-5 /LPF (None Seen); Urine Ketones NEGATIVE (Negative); Urine Microscopic Reflex YN ORDER UMIC; Urine Mucus Slight /HPF (None Seen); Urine Nitrite 2+ (Negative); Urine Protein 2+ (Negative); Urine RBC 21-50 /HPF (None Seen); Urine Urobilinogen Normal (Normal); Urine WBC >50 /HPF (<5); Urine WBC Clump Few /HPF (None Seen); Urine pH 5.5 (5.0-7.0)
[2024-02-25] MEDS ORDERED: NA CHLORIDE 0.9% 1,000 ML ONE (22:34)
--- NOTE | 2024-02-25 22:40 | P.HP ---
Certification for Inpatient Patient admitted to: Inpatient With expected LOS: >2 Midnights Practitioner: I am a practitioner with admitting privileges, knowledge of patient current condition, hospital course, and medical plan of care. Services: Services provided to patient in accordance with Admission requirements found in Title 42 Section 412.3 of the Code of Federal Regulations Patient History Date of Service: 02/25/24 Reason for admission: UTI History of Present Illness: Patient is a 78-year-old male with a past medical history of coronary disease status post PCI, CVA and hypertension. He presented to the ER complaining of an acute episode of dysuria which started around noon today. Patient is reporting burning. Associated symptoms include subjective fever, generalized weakness and possibly syncope. Patient has not been able to elaborate on his syncope. He arrived in the ER hemodynamically stable. He is alert and awake. He has a elevated lactate 2.4. Urinalysis reveals WBC of more than 50 and nitrite positive. He received 2 g of ceftriaxone in the ER. Allergies No Known Drug Allergies Allergy (Verified 09/09/14 08:29) Unknown No Known Aller Allergy (Uncoded 11/12/16 23:29) Unknown No Known Allergies Allergy (Uncoded 10/29/17 21:03) Unknown Home Medications: Levothyroxine [Synthroid*] 75 mcg PO [id number] 10/07/13 Clopidogrel Bisulfate [Plavix*] 75 mg PO DAILY #30 tablet 10/09/13 Metoprolol Tartrate [Lopressor*] 50 mg PO Q12HR #60 tab 10/09/13 Aspirin 325 mg PO DAILY #30 tablet 09/13/14 Pantoprazole [Protonix Tab*] 40 mg PO BID #60 tab 09/13/14 Amlodipine Besylate 5 mg PO DAILY 03/17/20 Rosuvastatin [Crestor*] 20 mg PO BEDTIME 03/17/20 Docusate Sodium [Dulcolax Stool Softener] 100 mg PO BID #30 capsule 03/21/20 - Past Medical/Surgical History Diabetic: No -: HTN -: CVA -: HYPERLIPIDEMA -: HERNIA REPAIR 2010 -: CHOLICYSTECTOMY -: REMOVAL OF SMALL INTESTINE Psychosocial/ Personal History: Patient is retired and lives alone - Social History Alcohol use: No CD- Drugs: No Caffeine use: No Physical Examination - Physical Exam General: Obese HEENT: Atraumatic, Normocephalic Respiratory: Clear to auscultation bilaterally, Normal air movement Cardiovascular: No edema, Normal pulses, Regular rate/rhythm, Normal S1 S2 Neurological: Normal speech - Studies Laboratory Data (last 24 hrs) 02/25/24 02/25/24 02/25/24 19:40 19:40 19:40 WBC 9.70 Hgb 13.7 Hct 39.1 L Plt Count 114 L PT 15.7 H INR 1.42 APTT 34.0 Sodium 134 L Potassium 4.0 BUN 21 H Creatinine 1.72 H Glucose 121 H Total Bilirubin 1.4 H AST 16 ALT 19 Alkaline Phosphatase 48 Assessment and Plan - Problems (Diagnosis) (1) CAD (coronary artery disease), [place] coronary artery Current Visit: No Status: Acute (2) CKD (chronic kidney disease) stage 3, GFR 30-59 ml/min Current Visit: No Status: Acute (3) Cerebrovascular accident Current Visit: No Status: Acute (4) Hypertensive disorder, systemic arterial Current Visit: No Status: Acute - Plan Assessment This is a 78-year-old male with obesity, hypertension, CKD stage III, coronary disease status post PCI and CVA. He is being admitted for UTI after presented with an acute onset of dysuria. Patient has an impressive urine analysis. CT abdomen and pelvis also supports cystitis. He received 2 g of ceftriaxone in the ER. Of note, patient also reports generalized weakness and possibly syncope. Acute cystitis Lactic acid Hypertension Coronary disease status post PCI CVA CKD stage III Obesity Plan: Will admit inpatient with telemetry Continue patient on ceftriaxone IV fluid infusion with normal saline Antiemetics with Zofran 2D echo for assessment of possible syncope Resume home meds upon reconciliation - Advance Directives Does patient have a Living Will: No Does patient have a Durable POA for Healthcare: No
[2024-02-26] MEDS: NA CHLORIDE 0.9% 1,000 ML IV SCH (00:04)
[2024-02-26] MEDS: HEPARIN 5000 UNIT/ML 1 ML VIAL SQ SCH (00:04)
[2024-02-26] MEDS: CEFTRIAXONE 1,000 MG in NA CHLORIDE 0.9% 50 ML IVPB SCH (08:01)
--- NOTE | 2024-02-26 08:17 | P.PN ---
Date of Service: 02/26/24 Subjective: recalls falling but difficulty recalling any other events. Doesn't think he lost consciousness. Reports intermittent burning sensation with urinating recently for ~2 days had minimal intake day he fell, +reports feeling very weak started feeling more short of breath overnight urine is pinkish/orange tinged no chest pain ROS: 10 point ROS as noted above, otherwise negative Physical Exam: GEN: Alert, oriented, NAD CV: Regular rate and rhythm, trace-1+ bilateral lower extremity edema up to knees Pulm: mild labored respirations on room air, diminished at bases b/l ABD: soft, nontender, nondistended Neuro: Normal speech, normal affect Problem List: Acute cystitis with hematuria Generalized weakness, s/p fall Elevated Troponin Chronic diastolic CHF Hx CAD s/p PCI (2013) CKD3 Hypertension Hyperlipidemia Hypothyroidism 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 Burning in sensation. associated with fever, weakness, fall at home. CT abdomen (02/24): Circumferential bladder wall thickening with stranding. 2 protrusions along the ventral aspect of the bladder concerning for lesions vs small decompressed diverticula with inflammation. 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 CT head, CXR negative for any acute findings. given rocephin in ED, Continue empiric rocephin (02/25-) follow urine and blood cultures no leukocytosis, +101.2 fever overnight lactate resolved PT/OT consult urine is pinkish/orange tinged Elevated Troponin Chronic diastolic CHF Hx CAD s/p PCI (2013) denies chest pain likely type II trend troponin's, monitor on telemetry Hx CAD in 2013 with significant LAD disease (99%) and RCA disease (90%) s/p PCI to LAD and RCA Prior Echo (May 2023 @[facility]) with LVEF >60%. Mild concentric LV hypertrophy. Mitral filling pattern suggestive of impaired left ventricle relaxation. Mild Mitral regurgitation. The RAP is estimated to be 0-5 mmHg. on daily plavix, baby aspirin q48h at home. 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
[2024-02-26] MEDS ORDERED: ENOXAPARIN 40 MG/0.4 ML SQ SCH (09:00)
[2024-02-26 09:28] LABS: Absolute Lymphocytes (CBC) 0.4 K/uL (0.7-4.9); Absolute Monocytes 0.5 K/uL (0.1-1.3); Absolute Neutrophil 5.5 K/uL (1.8-8.0); Basophils % 0.5 % (0-1.3); Eosinophils % 0.1 % (0-4.4); Hematocrit 34.9 % (39.6-49.0); Hemoglobin 12.1 g/dL (13.6-17.9); Lymphocytes % 5.6 % (15.3-44.8); MCH 31.2 pg (27.0-35.0); MCHC 34.5 g/dL (32.0-36.0); MCV 90.4 fL (80-100); MPV 7.8 fL (7.6-11.3); Monocytes % 8.5 % (3.3-12.3); Neutrophils % 85.3 % (41.7-73.7); Platelets 95 thou/uL (152-406); RBC Red Blood Cell Count 3.86 M/uL (4.33-5.43); Red Cell Distribution Width 14.2 % (12.1-15.2)
[2024-02-26 09:44] LABS: Anion Gap 8.9 mEq/L (5.0-15.0); Potassium 3.9 mEq/L (3.5-5.1)
[2024-02-26] MEDS: AMLODIPINE 5 MG TAB PO ONE (09:46)
[2024-02-26 09:56] LABS: Blood Morphology Comment NOT SEEN (NOT SEEN); Platelet Estimate DECR; White Blood Cell Scan OK (OK)
--- NOTE | 2024-02-26 12:59 | P.CNS ---
Date of Consult: 02/26/24 Chief Complaint: UTI History of Present Illness: Patient with PMH of CAD s/p PCI LAD/RCA back in 2013, Heart failure preserved EF, presented with urinary problems, cardiology was consulted for elevated troponin, patient denies recent chest pain, no palpitations, no syncope, report SUAZO, no other cardiac symptoms. Allergies No Known Drug Allergies Allergy (Verified 09/09/14 08:29) Unknown No Known Aller Allergy (Uncoded 11/12/16 23:29) Unknown No Known Allergies Allergy (Uncoded 10/29/17 21:03) Unknown Home medications list reviewed: Yes Home Medications: Levothyroxine [Synthroid*] 88 mcg PO [id number] 10/07/13 Clopidogrel Bisulfate [Plavix*] 75 mg PO DAILY #30 tablet 10/09/13 Metoprolol Tartrate [Lopressor*] 50 mg PO Q12HR #60 tab 10/09/13 Amlodipine Besylate 5 mg PO DAILY 03/17/20 Rosuvastatin [Crestor*] 20 mg PO BEDTIME 03/17/20 Furosemide [Lasix] 40 mg PO DAILY PRN 02/26/24 Oxybutynin Chloride [Oxybutynin Chloride ER] 2.5 mg PO BID 02/26/24 Pantoprazole [Protonix Tab*] 40 mg PO DAILY 02/26/24 - Past Medical/Surgical History Diabetic: No -: HTN -: CVA -: HYPERLIPIDEMA -: HERNIA REPAIR 2010 -: CHOLICYSTECTOMY -: REMOVAL OF SMALL INTESTINE Psychosocial/ Personal History: Patient is retired and lives alone - Social History Smoking Status: Former smoker Alcohol use: No CD- Drugs: No Caffeine use: No Place of Residence: Home Review of Systems 10-point ROS is otherwise unremarkable Physical Examination Temp Pulse Resp BP Pulse Ox 99.3 F 76 20 199/84 H 94 02/26/24 12:00 02/26/24 12:00 02/26/24 12:00 02/26/24 12:00 02/26/24 12:00 General: Alert, In no apparent distress HEENT: Atraumatic, PERRLA, Mucous membr. moist/pink, EOMI, Sclerae nonicteric Neck: Supple, 2+ carotid pulse no bruit, No LAD, Without JVD or thyroid abnormality Respiratory: Clear to auscultation bilaterally, Normal air movement Cardiovascular: Regular rate/rhythm, Normal S1 S2 Gastrointestinal: Normal bowel sounds, No tenderness Musculoskeletal: No tenderness Integumentary: No rashes Neurological: Normal gait, Normal speech, Normal tone, Normal affect Lymphatics: No axilla or inguinal lymphadenopathy Laboratory Data (last 24 hrs) 02/25/24 02/25/24 02/25/24 19:40 19:40 19:40 WBC 9.70 Hgb 13.7 Hct 39.1 L Plt Count 114 L PT 15.7 H INR 1.42 APTT 34.0 Sodium 134 L Potassium 4.0 BUN 21 H Creatinine 1.72 H Glucose 121 H Total Bilirubin 1.4 H AST 16 ALT 19 Alkaline Phosphatase 48 - Problems (1) Elevated troponin Current Visit: Yes Status: Acute Plan: patient is not having any active chest pain, troponin first set is mild elevated which can be type 2 CT from fever, infection and FENG. recommend to continue to trend, if rising up then Heparin drip as patient is having hematuria, to make sure that bleeding is not worsening before considering coronary angiogram. but if troponin trend is flat or down trending then outpatient stress test is an option continue ASA 81 mg daily Continue statins Patient had an echo recently at [facility] that shown normal EF with grade 1 DD. (2) Chronic diastolic heart failure Current Visit: Yes Status: Acute Plan: patient looks euovolemic on exam continue lopressor and Norvasc.
--- NOTE | 2024-02-26 13:05 | EKG ---
Test Date: 2024-02-25 Test Time: 19:52:44 Endocrinology Specialist: JENNIFER MEASUREMENT RESULTS: Intervals: Rate: 81 ME: 202 QRSD: 120 QT: 386 QTc: 448 [place]: P: 66 ME: 202 QRS: 35 T: 37 INTERPRETIVE STATEMENTS: Normal sinus rhythm Right bundle branch block Abnormal ECG Compared to ECG 09/05/2022 17:00:27 Sinus bradycardia no longer present Electronically Signed On 02-26-24 13:03:46 [employer]OC[employer] by [place]
[2024-02-26] MEDS: POTASSIUM CL SA 10 MEQ TAB PO ONE (13:23)
[2024-02-26] MEDS: FUROSEMIDE 20 MG/ 2ML VIAL IV ONE (13:24)
[2024-02-26] MEDS: METOPROLOL TAR 50 MG TAB PO ONE (13:24)
[2024-02-26 14:55] LABS: Magnesium 1.9 mg/dL (1.6-2.4); Phosphorus 1.7 mg/dL (2.5-4.9)
[2024-02-26] MEDS: METOPROLOL TAR 50 MG TAB PO SCH (20:15)
[2024-02-27 07:25] LABS: Absolute Eosinophils 0.1 K/uL (0-0.5); Absolute Lymphocytes (CBC) 0.7 K/uL (0.7-4.9); Absolute Monocytes 0.7 K/uL (0.1-1.3); Absolute Neutrophil 5.7 K/uL (1.8-8.0); Basophils % 0.5 % (0-1.3); Eosinophils % 1.5 % (0-4.4); Hematocrit 36.4 % (39.6-49.0); Hemoglobin 12.8 g/dL (13.6-17.9); Lymphocytes % 9.8 % (15.3-44.8); MCH 31.4 pg (27.0-35.0); MCHC 35.1 g/dL (32.0-36.0); MCV 89.4 fL (80-100); MPV 7.7 fL (7.6-11.3); Monocytes % 9.4 % (3.3-12.3); Neutrophils % 78.8 % (41.7-73.7); Platelets 119 thou/uL (152-406); RBC Red Blood Cell Count 4.07 M/uL (4.33-5.43); Red Cell Distribution Width 14.3 % (12.1-15.2)
[2024-02-27 07:34] LABS: Anion Gap 9.2 mEq/L (5.0-15.0); Magnesium 2.1 mg/dL (1.6-2.4); Potassium 4.2 mEq/L (3.5-5.1)
[2024-02-27] MEDS: HEPARIN 5000 UNIT/ML 1 ML VIAL SQ SCH (07:47)
[2024-02-27] MEDS: PANTOPRAZOLE 40MG TABLET PO SCH (07:48)
[2024-02-27] MEDS: CLOPIDOGREL 75 MG TABLET PO SCH (07:48)
--- NOTE | 2024-02-27 09:41 | P.PN ---
Date of Service: 02/27/24 Subjective: continues with persistent dizziness, worsening with movement/turning head no dizziness when laying/standing still Dizziness started after the fall, denies any similar symptoms prior to episode intermittently feels the room is spinning otherwise doing okay breathing feels easier today ROS: 10 point ROS as noted above, otherwise negative Physical Exam: GEN: Alert, oriented, NAD CV: Regular rate and rhythm, trace-1+ bilateral lower extremity edema up to knees Pulm: mild labored respirations on room air, diminished at bases b/l ABD: soft, nontender, nondistended Neuro: Normal speech, normal affect Problem List: Acute cystitis with hematuria Generalized weakness, s/p fall Elevated Troponin Chronic diastolic CHF Hx CAD s/p PCI (2013) Dizziness CKD3 Hypertension Hyperlipidemia Hypothyroidism 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 Burning in sensation. associated with fever, weakness, fall at home. CT abdomen (02/24): Circumferential bladder wall thickening with stranding. 2 protrusions along the ventral aspect of the bladder concerning for lesions vs small decompressed diverticula with inflammation. 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 CT head, CXR negative for any acute findings. given rocephin in ED, Continue empiric rocephin (02/25-) urine cx (02/24): 4+ GNR blood cx (02/24): NGTD no leukocytosis, afebrile lactate resolved PT/OT consult hematuria clearing up Elevated Troponin Chronic diastolic CHF Hx CAD s/p PCI (2013) denies chest pain likely type II troponins elevated but trended flat; monitor on telemetry Hx CAD in 2013 with significant LAD disease (99%) and RCA disease (90%) s/p PCI to LAD and RCA Prior Echo (May 2023 @[facility]) with LVEF >60%. Mild concentric LV hypertrophy. Mitral filling pattern suggestive of impaired left ventricle relaxation. Mild Mitral regurgitation. The RAP is estimated to be 0-5 mmHg. continue metoprolol, plavix, statin echo ordered to eval EF / stenosis Cardiology consulted f/u for outpatient stress test s/p IV lasix x1 20 mg; Feels breathing is easier after lasix appears euvolemic, urine stella hold off on further diuresis for now - hold home lasix Dizziness Unclear etiology. Possibly related to hypertension vs dehydration vs ?vertigo Reports persistent dizziness since fall. 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
--- NOTE | 2024-02-27 09:46 | P.PN ---
Subjective Date of Service: 02/27/24 Chief Complaint: UTI Subjective: No new changes, No C/O voiced, Tolerating diet, Ambulating, Improving Review of Systems 10-point ROS is otherwise unremarkable Physical Examination - Vital Signs Temperature: 98.2 F Blood Pressure: 159/70 Pulse: 68 Respirations: 16 Pulse Ox (%): 92 - Physical Exam General: Alert, In no apparent distress HEENT: Atraumatic, PERRLA, EOMI Neck: Supple, JVD not distended Respiratory: Clear to auscultation bilaterally, Normal air movement Cardiovascular: Regular rate/rhythm, Normal S1 S2 Gastrointestinal: Normal bowel sounds, No tenderness Musculoskeletal: No tenderness Integumentary: No rashes Neurological: Normal speech, Normal tone, Normal affect Lymphatics: No axilla or inguinal lymphadenopathy - Studies Laboratory Data (last 24 hrs) 02/25/24 14:30 Phosphorus 1.7 L Magnesium 1.9 Medications List Reviewed: Yes Assessment And Plan - Current Problems (Diagnosis) (1) Elevated troponin Current Visit: Yes Status: Acute Plan: patient is not having any active chest pain, troponin first set is mild elevated which can be type 2 ND from fever, infection and FENG. Patient cardiac enzymes mild elevated and trending down Outpatient stress test is recommended. continue ASA 81 mg daily Continue statins Patient had an echo recently at [facility] that shown normal EF with grade 1 DD. (2) Chronic diastolic heart failure Current Visit: Yes Status: Acute Plan: patient looks euovolemic on exam continue lopressor and Norvasc.
--- NOTE | 2024-02-27 13:02 | ECHO ---
HEIGHT: 5 ft 11 in WEIGHT: 269 lb 0 oz DATE OF STUDY: 02/27/[address]: Prince Wilder Aparicio MD 2-DIMENSIONAL: YES M.MODE: YES DOPPLER: YES COLOR FLOW: YES TDS: NO PORTABLE: YES DEFINITY: NO BUBBLE STUDY: NO DIAGNOSIS: SYNCOPE CARDIAC HISTORY: CATHERIZATION:YES SURGERY: NO PROSTHETIC VALVE: NO PACEMAKER: NO MEASUREMENTS (cm) DIASTOLIC (NORMALS) SYSTOLIC (NORMALS) IVSd 1.3 (0.6-1.2) LA Diam 3.3 (1.9-4.0) LVEF 55-60% LVIDd 5.4 (3.5-5.7) LVIDs 3.9 (2.0-3.5) %FS 28% LVPWd 1.4 (0.6-1.2) Ao Diam 3.0 (2.0-3.7) 2 DIMENSIONAL ASSESSMENT: RIGHT ATRIUM: NORMAL LEFT ATRIUM: NORMAL RIGHT VENTRICLE: NORMAL LEFT VENTRICLE: NORMAL TRICUSPID VALVE: TRACE TRICUSPID REGURGITATION MITRAL VALVE: NORMAL PULMONIC VALVE: NORMAL AORTIC VALVE: NORMAL PERICARDIAL EFFUSION: NONE AORTIC ROOT: NORMAL LEFT VENTRICULAR WALL MOTION: NORMAL. DOPPLER/COLOR FLOW: GRADE I DIASTOLIC DYSFUNCTION. COMMENTS: 1. NORMAL LEFT VENTRICULAR SYSTOLIC FUNCTION. LEFT VENTRICULAR EJECTION FRACTION 55-60%. NORMAL WALL MOTION. 2. GRADE I DIASTOLIC DYSFUNCTION. 3. NORMAL FILLING PRESSURES. TECHNOLOGIST: YISSEL STEVENS
[2024-02-27] MEDS: ROSUVASTATIN 10 MG TAB PO SCH (20:52)
[2024-02-28] MEDS: MELATONIN 3 MG TABLET PO PRN (00:28)
[2024-02-28] MEDS: LEVOTHYROXINE SOD 0.088 MG TAB PO SCH (05:06)
[2024-02-28 06:14] LABS: Hematocrit 34.3 % (39.6-49.0); Hemoglobin 12.3 g/dL (13.6-17.9); MCH 31.8 pg (27.0-35.0); MCHC 35.9 g/dL (32.0-36.0); MCV 88.7 fL (80-100); MPV 7.9 fL (7.6-11.3); Platelets 143 thou/uL (152-406); RBC Red Blood Cell Count 3.87 M/uL (4.33-5.43); Red Cell Distribution Width 14.3 % (12.1-15.2)
[2024-02-28 06:37] LABS: Anion Gap 8.9 mEq/L (5.0-15.0); Magnesium 2.2 mg/dL (1.6-2.4); Potassium 3.9 mEq/L (3.5-5.1)
[2024-02-28] MEDS: POTASSIUM CL SA 10 MEQ TAB PO ONE (08:14)
[2024-02-28] MEDS: AMLODIPINE 5 MG TAB PO SCH (16:11)
[2024-02-28] MEDS: Meropenem 1,000 MG in NA CHLORIDE 0.9% 100 ML IV SCH (16:11)
--- NOTE | 2024-02-28 16:26 | CON ---
History Of Present Illness: This is a 78-year-old male I was consulted for urinary tract infection s econdary to ESBL E coli, cultures are done on February 24, grew out ESBL E coli. Currently, patijurgen glover is getting meropenem, which was started on 02/27. The patient denies any headache, nausea, vomitin g, chest pain, abdominal pain, constipation, diarrhea. Initially, he was having some shortness of br eath and right-sided chest discomfort, mostly located on the back side around the scapula. Past Medical History: Includes hypothyroidism, morbid obesity, coronary artery disease with stent pl acement and hernia repair, hypercholesterolemia. Social History: Stopped smoking 20 years ago. Used to smoke one pack in 2 days for 20 years. Family History: Noncontributory. Medications: Meropenem. See MARs for other medications. Allergies: NO KNOWN DRUG ALLERGIES. Review of Systems: A 10-point review was performed. Physical Examination: General: This is a 78-year-old male, sitting in bed, not in any acute cardiopulmonary distress. Vital Signs: Temperature 98, pulse 68, respirations 22, blood pressure 141/63. HEENT: Unremarkable. Neck: Supple: Basal crackles. Heart: S1, S2. Regular. Abdomen: Soft, nontender. Bowel sounds present. Extremities: Trace edema. Laboratory Data: Shows WBC 9.3, hemoglobin 12.3, platelets 143. Chemistry shows BUN of 23, creatini ne 1.4. Lactic acid is 2.4, which has come down to 1.2. Micro data shows E coli ESBL. CT abdomen a nd pelvis showed patient hand no acute abnormalities seen in abdomen and pelvis. Chest x-ray done on February 24 shows no acute evidence of infiltrate. Assessment And Plan: Urinary tract infection and urosepsis secondary to Escherichia coli extended-sp ectrum beta-lactamase, currently on meropenem. Total course should be 5 days. Consider getting a ur ology evaluation as an outpatient. Consider getting a cardiology consult. The patient was seen by c ardiologist with the slightly elevated troponin level. Urosepsis, Escherichia coli extended-spectrum beta-lactamase, fever subsided, thrombocytopenia, renal insufficiency, morbid obesity. Follow the patient as needed. Thank you Dr. Campos for consult. NF/SILVIO Voice ID: [id number] Report ID: [id number]
--- NOTE | 2024-02-28 18:46 | P.PN ---
Subjective Date of Service: 02/28/24 Chief Complaint: UTI Patient denies any complaints today. He has been ambulating. He has been afebrile and tolerating his diet. Patient reports intermittent dizziness with standing and head turning. Physical Examination - Vital Signs Temperature: 99.9 F Blood Pressure: 180/72 Pulse: 68 Respirations: 20 Pulse Ox (%): 90 - Studies Microbiology Data (last 24 hrs): 02/25/24 21:53 Catheterized Urine [place] Count - Final >100,000 CFU/ML. 02/25/24 21:53 Catheterized Urine - Final Escherichia Coli Esbl Medications List Reviewed: Yes Assessment And Plan - Plan Physical Exam: GEN: Alert, oriented, NAD, morbidly obese. CV: Regular rate and rhythm, trace-1+ bilateral lower extremity edema up to knees Pulm: Lung clear to auscultation bilateral, no rhonchi or wheezes. 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 Burning in sensation. associated with fever, weakness, fall at home. CT abdomen (02/24): Circumferential bladder wall thickening with stranding. 2 protrusions along the ventral aspect of the bladder concerning for lesions vs small decompressed diverticula with inflammation. 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 CT head, CXR negative for any acute findings. lactate resolved given rocephin in ED urine cx (02/24): ESBL E. coli blood cx (02/24): NGTD Antibiotics changed from IV Rocephin to IV meropenem. Infectious disease consulted, Dr. Figueroa recommended 5 days of IV meropenem. Patient is ambulating with PT. hematuria cleared up. Elevated Troponin Chronic diastolic CHF Hx CAD s/p PCI (2013) denies chest pain likely type II troponins elevated but trended flat. Hx CAD in 2013 with significant LAD disease (99%) and RCA disease (90%) s/p PCI to LAD and RCA Prior Echo (May 2023 @[facility]) with LVEF >60%. Mild concentric LV hypertrophy. Mitral filling pattern suggestive of impaired left ventricle relaxation. Mild Mitral regurgitation. The RAP is estimated to be 0-5 mmHg. continue metoprolol, plavix, statin echo ordered to eval EF / stenosis Cardiology input appreciated. Dr. Stinson recommended outpatient stress s/p IV lasix x1 20 mg. Patient appears compensated for CHF Resume home maintenance dose Lasix Vertigo Unclear etiology. Possibly related to hypertension vs dehydration vs ?vertigo versus UTI Reports persistent dizziness since fall. Dizziness worsened with movement/turning head Denies dizziness when laying/standing still CT head negative on admission Likely positional vertigo. Continue PT. Acute on CKD3 Serum creatinine improved with IV hydration. 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
[2024-02-28] MEDS: OXYBUTYNIN ER 5 MG TAB PO SCH (20:58)
[2024-02-28] MEDS ORDERED: METOPROLOL TAR 50 MG TAB PO SCH (21:00)
[2024-02-28] MEDS: ACETAMINOPHEN 325 MG TABLET PO PRN (22:10)
[2024-02-29 06:20] LABS: Absolute Basophils 0.1 K/uL (0-0.5); Absolute Eosinophils 0.4 K/uL (0-0.5); Absolute Lymphocytes (CBC) 0.9 K/uL (0.7-4.9); Absolute Monocytes 1.2 K/uL (0.1-1.3); Absolute Neutrophil 7.7 K/uL (1.8-8.0); Basophils % 0.8 % (0-1.3); Eosinophils % 4.1 % (0-4.4); Hematocrit 37.5 % (39.6-49.0); Hemoglobin 13.5 g/dL (13.6-17.9); Lymphocytes % 8.8 % (15.3-44.8); MCH 31.8 pg (27.0-35.0); MCHC 35.9 g/dL (32.0-36.0); MCV 88.6 fL (80-100); MPV 7.7 fL (7.6-11.3); Monocytes % 11.3 % (3.3-12.3); Nucleated Red Blood Cells % 0.1 % (0-0); Platelets 143 thou/uL (152-406); RBC Red Blood Cell Count 4.24 M/uL (4.33-5.43); Red Cell Distribution Width 14.3 % (12.1-15.2)
[2024-02-29 06:35] LABS: Anion Gap 5.9 mEq/L (5.0-15.0); Potassium 3.9 mEq/L (3.5-5.1)
[2024-02-29] MEDS: POTASSIUM CL SA 10 MEQ TAB PO ONE (08:25)
[2024-02-29] MEDS ORDERED: AMLODIPINE 5 MG TAB PO SCH (09:00)
[2024-02-29] MEDS: FUROSEMIDE 40 MG/4 ML VIAL IV SCH (10:15)
--- NOTE | 2024-02-29 17:07 | P.PN ---
Subjective Date of Service: 02/29/24 Chief Complaint: UTI Patient reports significant improvement in his dizziness He has been ambulating. Physical Examination - Vital Signs Temperature: 98.2 F Blood Pressure: 167/62 Pulse: 59 Respirations: 18 Pulse Ox (%): 91 - Studies Medications List Reviewed: Yes Assessment And Plan - Plan Physical Exam: GEN: Alert, oriented, NAD, morbidly obese. CV: Regular rate and rhythm, trace-1+ bilateral lower extremity edema up to knees Pulm: Lung clear to auscultation bilateral, no rhonchi or wheezes. 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 Burning in sensation. associated with fever, weakness, fall at home. CT abdomen (02/24): Circumferential bladder wall thickening with stranding. 2 protrusions along the ventral aspect of the bladder concerning for lesions vs small decompressed diverticula with inflammation. 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 CT head, CXR negative for any acute findings. lactate resolved given rocephin in ED urine cx (02/24): ESBL E. coli blood cx (02/24): NGTD Antibiotics changed from IV Rocephin to IV meropenem. Infectious disease consulted, Dr. Figureoa recommended 5 days of IV meropenem. Patient is ambulating with PT. hematuria cleared up. Urine is now stella-colored. Elevated Troponin Chronic diastolic CHF Hx CAD s/p PCI (2013) denies chest pain likely type II troponins elevated but trended flat. Hx CAD in 2013 with significant LAD disease (99%) and RCA disease (90%) s/p PCI to LAD and RCA Prior Echo (May 2023 @[facility]) with LVEF >60%. Mild concentric LV hypertrophy. Mitral filling pattern suggestive of impaired left ventricle relaxation. Mild Mitral regurgitation. The RAP is estimated to be 0-5 mmHg. continue metoprolol, plavix, statin echo ordered to eval EF / stenosis Cardiology input appreciated. Dr. Stinson recommended outpatient stress s/p IV lasix x 1 dose. Patient appears compensated for CHF Resume home maintenance dose Lasix Vertigo Unclear etiology. Possibly related to hypertension vs dehydration vs ?vertigo versus UTI Reports persistent dizziness since fall. Dizziness worsened with movement/turning head Patient reports dizziness is improved with his urinary symptoms. Patient is probably related to the UTI. CT head negative on admission Continue PT. Acute on CKD3 Serum creatinine improved with IV hydration. 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
[2024-03-01 07:23] LABS: Anion Gap 10.7 mEq/L (5.0-15.0); Potassium 3.7 mEq/L (3.5-5.1)
[2024-03-01] MEDS: POTASSIUM CL SA 10 MEQ TAB PO ONE (08:44)
[2024-03-01] MEDS ORDERED: FUROSEMIDE 40 MG TABLET PO PRN (09:00)
--- NOTE | 2024-03-01 13:04 | P.PN ---
Subjective Date of Service: 03/01/24 Chief Complaint: UTI Patient placed on oxygen this morning. Patient denies any shortness of breath. No recorded fever over the past 24 hours. Urine remain clear. Physical Examination - Vital Signs Temperature: 97.7 F Blood Pressure: 158/68 Pulse: 53 Respirations: 20 Pulse Ox (%): 95 - Studies Medications List Reviewed: Yes Assessment And Plan - Plan Physical Exam: GEN: Alert, oriented, NAD, morbidly obese. CV: Regular rate and rhythm, trace-1+ bilateral lower extremity edema up to knees Pulm: Lung clear to auscultation bilateral, no rhonchi or wheezes. 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 Burning in sensation. associated with fever, weakness, fall at home. CT abdomen (02/24): Circumferential bladder wall thickening with stranding. 2 protrusions along the ventral aspect of the bladder concerning for lesions vs small decompressed diverticula with inflammation. 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 CT head, CXR negative for any acute findings. lactate resolved given rocephin in ED urine cx (02/24): ESBL E. coli blood cx (02/24): NGTD Antibiotics changed from IV Rocephin to IV meropenem. Infectious disease consulted, Dr. Figueroa recommended 5 days of IV meropenem. Patient is ambulating with PT. hematuria cleared up. Continue IV meropenem Continue PT. Elevated Troponin Chronic diastolic CHF Hx CAD s/p PCI (2013) denies chest pain likely type II troponins elevated but trended flat. Hx CAD in 2013 with significant LAD disease (99%) and RCA disease (90%) s/p PCI to LAD and RCA Prior Echo (May 2023 @[facility]) with LVEF >60%. Mild concentric LV hypertrophy. Mitral filling pattern suggestive of impaired left ventricle relaxation. Mild Mitral regurgitation. continue metoprolol, plavix, statin Cardiology input appreciated. Dr. Stinson recommended outpatient stress Echocardiogram is pending. Serum creatinine trended up slightly, IV Lasix discontinued Resume home maintenance dose Lasix Repeat chest x-ray. Vertigo Unclear etiology. Possibly related to hypertension vs dehydration vs ?vertigo versus UTI Dizziness worsened with movement/turning head Patient reports dizziness is improved with his urinary symptoms. Dizziness is probably related to the UTI. CT head negative on admission Continue PT. Acute on CKD3 Serum creatinine is probably at baseline. Monitor renal function while on diuretics. 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
--- NOTE | 2024-03-01 15:56 | RAD REPORT ---
EXAMINATION: ONE VIEW CHEST XR CLINICAL INDICATION: Hypoxia TECHNIQUE: Frontal chest projection is submitted. Examination is limited by patient positioning and t echnique. COMPARISON: 02/25/2024 FINDINGS: Mild interstitial pulmonary edema is present. The heart is mildly enlarged. No displaced fractures id entified. IMPRESSION: Mild CHF.
[2024-03-02 07:25] VITALS: BMI 36.9
[2024-03-02 07:52] LABS: Anion Gap 8.3 mEq/L (5.0-15.0); Potassium 4.3 mEq/L (3.5-5.1)
[2024-03-02] MEDS: FUROSEMIDE 40 MG TABLET PO SCH (11:06)
--- NOTE | 2024-03-02 13:16 | P.PN ---
Subjective Date of Service: 03/02/24 Chief Complaint: UTI Patient states he feels much better today. He is tolerating room air Patient denies any shortness of breath. Urine remain clear. He states his dysuria has significantly improved. Physical Examination - Vital Signs Temperature: 97.8 F Blood Pressure: 179/73 Pulse: 55 Respirations: 20 Pulse Ox (%): 93 - Studies Microbiology Data (last 24 hrs): 02/25/24 20:00 Blood - Blood Aerobic Blood Culture - Final No growth in 5 days. 02/25/24 20:00 Blood - Blood Anaerobic Blood Culture - Final No growth in 5 days. 02/25/24 19:40 Blood - Blood Aerobic Blood Culture - Final No growth in 5 days. 02/25/24 19:40 Blood - Blood Anaerobic Blood Culture - Final No growth in 5 days. Medications List Reviewed: Yes Assessment And Plan - Plan Physical Exam: GEN: Alert, oriented, NAD, morbidly obese. CV: Regular rate and rhythm, trace-1+ bilateral lower extremity edema up to knees Pulm: Lung clear to auscultation bilateral, no rhonchi or wheezes. 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 Burning in sensation. associated with fever, weakness, fall at home. CT abdomen (02/24): Circumferential bladder wall thickening with stranding. 2 protrusions along the ventral aspect of the bladder concerning for lesions vs small decompressed diverticula with inflammation. 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 CT head, CXR negative for any acute findings. lactate resolved given rocephin in ED urine cx (02/24): ESBL E. coli blood cx (02/24): NGTD Antibiotics changed from IV Rocephin to IV meropenem. Infectious disease consulted, Dr. Figueroa recommended 5 days of IV meropenem. IV meropenem day 4. Patient is ambulating with PT. hematuria cleared up. Continue IV meropenem Continue PT. Elevated Troponin Chronic diastolic CHF Hx CAD s/p PCI (2013) denies chest pain likely type II troponins elevated but trended flat. Hx CAD in 2013 with significant LAD disease (99%) and RCA disease (90%) s/p PCI to LAD and RCA Prior Echo (May 2023 @[facility]) with LVEF >60%. Mild concentric LV hypertrophy. Mitral filling pattern suggestive of impaired left ventricle relaxation. Mild Mitral regurgitation. continue metoprolol, plavix, statin Cardiology input appreciated. Dr. Stinson recommended outpatient stress Echocardiogram: Normal EF. Serum creatinine trended up slightly, IV Lasix discontinued. Chest x-ray showed mild. Patient is tolerating room air. Home maintenance dose Lasix resumed Repeat chest x-ray. Vertigo Vertigo likely related to UTI. Dizziness worsened with movement/turning head Patient reports dizziness is improved with his urinary symptoms. CT head negative on admission Symptoms resolved. Acute on CKD3 Serum creatinine is probably at baseline. Monitor renal function while on diuretics. 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
--- NOTE | 2024-03-03 11:55 | P.DS ---
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 Patient reportedly had a fall without loss of consciousness prior to admission. CT head, Chest xray were both negative for any acute findings. CT abdomen noted circumferential bladder wall thickening with stranding; Also noted 2 protrusions along the ventral aspect of the bladder concerning for lesions vs small decompressed diverticula with inflammation. Patient was given empiric rocephin while hospitalized and had improvement of his symptoms. Urine culture grew ESBL E. coli Blood cultures showed no growth. Patient seen and evaluated by infectious disease and he completed IV meropenem for the ESBL E. coli UTI infection. Patient was feeling better, afebrile, urinary symptoms resolved, hematuria resolved, and was deemed stable for discharge. Discussed CT findings with patient/family, and advised to follow up with Urology for further evaluation, workup in the near future. Troponin's were noted to be mildly elevated but trended flat. (peak 217). Cardiology was consulted and recommended following up as outpatient in near future for stress test. Vital Signs/Physical Exam: Temp Pulse Resp BP Pulse Ox 97.9 F 56 16 176/74 H 92 03/03/24 08:00 03/03/24 08:00 03/03/24 08:00 03/03/24 08:00 03/03/24 08:00 General: Alert, In no apparent distress, Oriented x3 HEENT: Mucous membr. moist/pink Neck: Supple, JVD not distended Respiratory: Clear to auscultation bilaterally, Normal air movement Cardiovascular: No edema, Regular rate/rhythm, Normal S1 S2 Gastrointestinal: Normal bowel sounds, Soft and benign, Non-distended, No tenderness Musculoskeletal: No swelling, No tenderness Integumentary: No erythema, No cyanosis Neurological: Normal speech, Normal strength at 5/5 x4 extr, Cranial nerves 3-12 intact Laboratory Data at Discharge: WBC 10.20 thou/uL (4.3-10.9) 02/29/24 06:00 Hgb 13.5 g/dL (13.6-17.9) L D 02/29/24 06:00 Hct 37.5 % (39.6-49.0) L 02/29/24 06:00 Plt Count 143 thou/uL (152-406) L 02/29/24 06:00 PT 15.7 SECONDS (9.4-12.5) H 02/25/24 19:40 INR 1.42 02/25/24 19:40 APTT 34.0 SECONDS (24.3-36.9) 02/25/24 19:40 Sodium 137 mEq/L (136-145) 03/02/24 07:11 Potassium 4.3 mEq/L (3.5-5.1) D 03/02/24 07:11 BUN 27 mg/dL (7-18) H 03/02/24 07:11 Creatinine 1.52 mg/dL (0.70-1.30) H 03/02/24 07:11 Glucose 116 mg/dL (74-106) H 03/02/24 07:11 Phosphorus 1.7 mg/dL (2.5-4.9) L 02/25/24 14:30 Magnesium 2.3 mg/dL (1.6-2.4) 03/01/24 06:26 Total Bilirubin 1.4 mg/dL (0.2-1.0) H 02/25/24 19:40 AST 16 U/L (15-37) 02/25/24 19:40 ALT 19 U/L (16-61) 02/25/24 19:40 Alkaline Phosphatase 48 U/L (45-117) 02/25/24 19:40 Home Medications: Levothyroxine [Synthroid*] 88 mcg PO [id number] 10/07/13 Clopidogrel Bisulfate [Plavix*] 75 mg PO DAILY #30 tablet 10/09/13 Metoprolol Tartrate [Lopressor*] 50 mg PO Q12HR #60 tab 10/09/13 Amlodipine Besylate 5 mg PO DAILY 03/17/20 Rosuvastatin [Crestor*] 20 mg PO BEDTIME 03/17/20 Furosemide [Lasix*] 40 mg PO DAILY PRN 02/26/24 Oxybutynin Chloride [Oxybutynin Chloride ER] 2.5 mg PO BID 02/26/24 Pantoprazole [Protonix Tab*] 40 mg PO DAILY 02/26/24 Physician Discharge Instructions: Physician discharge instructions: Patient presents with dysuria, hematuria, associated with fever, weakness secondary to acute cystitis. Patient reportedly had a fall without loss of consciousness prior to admission. CT head, Chest xray were both negative for any acute findings. CT abdomen noted circumferential bladder wall thickening with stranding; Also noted 2 protrusions along the ventral aspect of the bladder concerning for lesions vs small decompressed diverticula with inflammation. Patient was given empiric rocephin while hospitalized and had improvement of his symptoms. Urine culture grew ESBL E. coli Blood cultures showed no growth. Patient seen and evaluated by infectious disease and he completed IV meropenem for the ESBL E. coli UTI infection. Patient was feeling better, afebrile, urinary symptoms resolved, hematuria resolved, and was deemed stable for discharge. Discussed CT findings with patient/family, and advised to follow up with Urology for further evaluation, workup in the near future. Troponin's were noted to be mildly elevated but trended flat. (peak 217). Cardiology was consulted and recommended following up as outpatient in near future for stress test. Follow up: PCP 3-5 days Cardiology 2-4 weeks Urology 2-4 weeks Please call to schedule / confirm appointments CT abdomen report 1. Circumferential bladder wall thickening with stranding. 2. 2 protrusions along the ventral aspect of the bladder that may be lesions or small decompressed diverticula with inflammation. Consider outpatient urology evaluation. 3. Small pericardial effusion, cardiomegaly, prostatomegaly, splenomegaly 4. 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 Diet: AHA Activity: Fall precautions Followup: Lake Stinson MD [ACTIVE - CAN ADMIT] - 1-2 Weeks (For arrangement for outpatient stress test.) Javier Kay DO [Primary Care Provider] - 1-2 Weeks Time spent managing pt's care (in minutes): 39
--- NOTE | 2024-03-03 18:11 | P.PN ---
Subjective Date of Service: 03/03/24 Chief Complaint: UTI Patient denies any new complaint. He is tolerating room air Patient denies any shortness of breath. Physical Examination - Vital Signs Temperature: 98.6 F Blood Pressure: 157/68 Pulse: 74 Respirations: 16 Pulse Ox (%): 94 - Studies Medications List Reviewed: Yes Assessment And Plan - Plan Physical Exam: GEN: Alert, oriented, NAD CV: Regular rate and rhythm, trace-1+ bilateral lower extremity edema up to knees Pulm: Lung clear to auscultation bilateral, no rhonchi or wheezes. 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 Burning in sensation. associated with fever, weakness, fall at home. CT abdomen (02/24): Circumferential bladder wall thickening with stranding. 2 protrusions along the ventral aspect of the bladder concerning for lesions vs small decompressed diverticula with inflammation. 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 CT head, CXR negative for any acute findings. lactate resolved given rocephin in ED urine cx (02/24): ESBL E. coli blood cx (02/24): NGTD Antibiotics changed from IV Rocephin to IV meropenem. Infectious disease consulted, Dr. Figueroa recommended 5 days of IV meropenem. Patient to complete IV meropenem today Patient ambulated with with a walker during PT hematuria cleared up. Patient may be appropriate for skilled rehab. Elevated Troponin Chronic diastolic CHF Hx CAD s/p PCI (2013) denies chest pain likely type II troponins elevated but trended flat. Hx CAD in 2013 with significant LAD disease (99%) and RCA disease (90%) s/p PCI to LAD and RCA Prior Echo (May 2023 @[facility]) with LVEF >60%. Mild concentric LV hypertrophy. Mitral filling pattern suggestive of impaired left ventricle relaxation. Mild Mitral regurgitation. continue metoprolol, plavix, statin Cardiology input appreciated. Dr. Stinson recommended outpatient stress Echocardiogram: Normal EF. Serum creatinine trended up slightly, IV Lasix discontinued. Chest x-ray showed mild. Patient is tolerating room air. Home maintenance dose Lasix resumed Vertigo Vertigo likely related to UTI. Dizziness worsened with movement/turning head Patient reports dizziness is improved with his urinary symptoms. CT head negative on admission Symptoms resolved. Acute on CKD3 Serum creatinine is probably at baseline. Monitor renal function while on diuretics. 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
[2024-03-04 05:46] LABS: Absolute Basophils 0.1 K/uL (0-0.5); Absolute Eosinophils 0.3 K/uL (0-0.5); Absolute Monocytes 0.7 K/uL (0.1-1.3); Absolute Neutrophil 8.4 K/uL (1.8-8.0); Basophils % 0.8 % (0-1.3); Eosinophils % 2.7 % (0-4.4); Hematocrit 37.5 % (39.6-49.0); Hemoglobin 13.1 g/dL (13.6-17.9); Lymphocytes % 9.2 % (15.3-44.8); MCV 88.8 fL (80-100); MPV 7.4 fL (7.6-11.3); Monocytes % 7.1 % (3.3-12.3); Neutrophils % 80.2 % (41.7-73.7); Platelets 251 thou/uL (152-406); RBC Red Blood Cell Count 4.22 M/uL (4.33-5.43); Red Cell Distribution Width 14.3 % (12.1-15.2)
[2024-03-04 06:13] LABS: Phosphorus 2.9 mg/dL (2.5-4.9)
--- NOTE | 2024-03-04 13:48 | P.PN ---
Subjective Date of Service: 03/04/24 Chief Complaint: UTI Patient has no new complain. He is tolerating room air Patient denies any shortness of breath. Physical Examination - Vital Signs Temperature: 97.9 F Blood Pressure: 138/67 Pulse: 56 Respirations: 20 Pulse Ox (%): 93 - Studies Medications List Reviewed: Yes Assessment And Plan - Plan Physical Exam: GEN: Alert, oriented, NAD CV: Regular rate and rhythm, no edema. Pulm: Lung clear to auscultation bilateral, no rhonchi or wheezes. 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 Burning in sensation. associated with fever, weakness, fall at home. CT abdomen (02/24): Circumferential bladder wall thickening with stranding. 2 protrusions along the ventral aspect of the bladder concerning for lesions vs small decompressed diverticula with inflammation. 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 CT head, CXR negative for any acute findings. lactate resolved Status post IV Rocephin urine cx (02/24): ESBL E. coli blood cx (02/24): NGTD Antibiotics changed from IV Rocephin to IV meropenem. Infectious disease consulted, Dr. Figueroa recommended 5 days of IV meropenem. Patient completed IV meropenem for ESBL E. coli UTI. Patient ambulating with with a walker during PT Patient may be appropriate for skilled rehab given his recent history of fall. Social service consulted for arrangement for skilled rehab. Elevated Troponin Chronic diastolic CHF Hx CAD s/p PCI (2013) denies chest pain likely type II troponins elevated but trended flat. Hx CAD in 2013 with significant LAD disease (99%) and RCA disease (90%) s/p PCI to LAD and RCA Prior Echo (May 2023 @[facility]) with LVEF >60%. Mild concentric LV hypertrophy. Mitral filling pattern suggestive of impaired left ventricle relaxation. Mild Mitral regurgitation. continue metoprolol, plavix, statin Cardiology input appreciated. Dr. Stinson recommended outpatient stress Echocardiogram: Normal EF. Serum creatinine trended up slightly, IV Lasix discontinued. Chest x-ray showed mild. Patient is tolerating room air. Continue home dose Lasix Vertigo Vertigo likely related to UTI. Dizziness worsened with movement/turning head CT head negative on admission Symptoms resolved. Acute on CKD3 Serum creatinine is probably at baseline. Monitor renal function while on diuretics. 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
--- NOTE | 2024-03-05 14:40 | P.PN ---
Subjective Date of Service: 03/05/24 Chief Complaint: UTI Patient denies any new complaint. He is tolerating room air He is eating well. Physical Examination - Vital Signs Temperature: 98.4 F Blood Pressure: 169/72 Pulse: 56 Respirations: 20 Pulse Ox (%): 93 - Studies Medications List Reviewed: Yes Assessment And Plan - Plan Physical Exam: GEN: Alert, oriented, NAD CV: Regular rate and rhythm, no edema. Pulm: Lung clear to auscultation bilateral, no rhonchi or wheezes. ABD: soft, nontender, nondistended Neuro: Normal speech, normal affect Diagnosis Acute cystitis with hematuria Generalized weakness, s/p fall Elevated Troponin Chronic diastolic CHF Hx CAD s/p PCI (2013) Dizziness CKD3 Hypertension Hyperlipidemia Hypothyroidism Hx CVA with residual right sided deficits (left posterior striatocapsular infa rct 2023) Plan: Acute cystitis with hematuria Generalized weakness, s/p fall on admission, presents with dysuria, hematuria that started shortly before admission. Burning in sensation. associated with fever, weakness, fall at home. CT abdomen (02/24): Circumferential bladder wall thickening with stranding. 2 protrusions along the ventral aspect of the bladder concerning for lesions vs small decompressed diverticula with inflammation. 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 CT head, CXR negative for any acute findings. lactate resolved Status post IV Rocephin urine cx (02/24): ESBL E. coli blood cx (02/24): NGTD Antibiotics changed from IV Rocephin to IV meropenem. Infectious disease consulted, Dr. Figueroa recommended 5 days of IV meropenem. Patient completed IV meropenem for ESBL E. coli UTI. Patient ambulating with with a walker during PT Patient may be appropriate for skilled rehab given his recent history of fall. Social service consulted for arrangement for skilled rehab. Elevated Troponin Chronic diastolic CHF Hx CAD s/p PCI (2013) denies chest pain likely type II troponins elevated but trended flat. Hx CAD in 2013 with significant LAD disease (99%) and RCA disease (90%) s/p PCI to LAD and RCA Prior Echo (May 2023 @[facility]) with LVEF >60%. Mild concentric LV hypertrophy. Mitral filling pattern suggestive of impaired left ventricle relaxation. Mild Mitral regurgitation. continue metoprolol, plavix, statin Cardiology input appreciated. Dr. Stinson recommended outpatient stress Echocardiogram: Normal EF. Serum creatinine trended up slightly, IV Lasix discontinued. Chest x-ray showed mild. Patient is tolerating room air. Continue home dose Lasix. Follow-up with cardiology for outpatient stress test. Vertigo Vertigo likely related to UTI. Dizziness worsened with movement/turning head CT head negative on admission Symptoms resolved. Acute on CKD3 Serum creatinine is probably at baseline. Monitor renal function while on diuretics. 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
[2024-03-05] MEDS: HYDRALAZINE HCL 20 MG/ML VIAL IV PRN (20:44)
--- NOTE | 2024-03-06 08:32 | P.PN ---
Date of Service: 03/06/24 Subjective: breathing comfortably on room air urinating without issues, no constipation. 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 Burning in sensation. associated with fever, weakness, fall at home. CT abdomen (02/24): Circumferential bladder wall thickening with stranding. 2 protrusions along the ventral aspect of the bladder concerning for lesions vs small decompressed diverticula with inflammation. 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 CT head, CXR negative for any acute findings. urine cx (02/24): E. coli ESBL blood cx (02/24): No growth s/p 1 week of IV merrem (02/27-03/05) Dr. Figueroa, ID consulted Patient ambulating with with a walker during PT Patient may be appropriate for skilled rehab given his recent history of fall. Social service consulted for arrangement for skilled rehab. NSTEMI; likely demand ischemia Chronic diastolic CHF Hx CAD s/p PCI (2013) denies chest pain likely type II troponins elevated but trended flat; monitor on telemetry Hx CAD in 2013 with significant LAD disease (99%) and RCA disease (90%) s/p PCI to LAD and RCA Prior Echo (May 2023 @[facility]) with LVEF >60%. Mild concentric LV hypertrophy. Mitral filling pattern suggestive of impaired left ventricle relaxation. Mild Mitral regurgitation. The RAP is estimated to be 0-5 mmHg. Echo (02/24): 55-60% EF, normal wall motion, grade 1 diastolic dysfunction continue metoprolol, plavix, statin, lasix Cardiology consulted. Dr. Stinson recommended outpatient stress test Vertigo, resolved Vertigo likely related to UTI. 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
--- NOTE | 2024-03-06 18:50 | PN ---
Subjective: The patient is lying in bed. No new acute event since seen last time. Objective: Vital Signs: Reviewed. Lungs: Basal crackles. Heart: S1, S2. Regular. Abdomen: Soft, nontender. Bowel sounds present. Extremities: No edema. Assessment And Plan: Acute cystitis with hematuria. Patient feels much better. Has completed his a ntibiotic with meropenem which was stopped yesterday. Morbid obesity, coronary artery disease, anemi a of chronic disease. Thrombocytopenia has improved. We will follow patient as needed. NF/MODL Voice ID: [id number] Report ID: [id number]
[2024-03-07 04:09] VITALS: O2SAT 93
--- NOTE | 2024-03-07 12:49 | P.DS ---
Admission Date: 02/25/24 Discharge Date: 03/07/24 Disposition: DC HOME/HOME HEALTH CARE Discharge Condition: GOOD Reason for Admission: UTI Consultations: Cardiology - Dr. Stinson Brief History of Present Illness: 78yo M, PMH: coronary disease status post PCI, CVA and hypertension. He presented to the ER complaining of an acute episode of dysuria which started around noon today. Patient is reporting burning. Associated symptoms include subjective fever, generalized weakness and possibly syncope. Patient has not been able to elaborate on his syncope. He arrived in the ER hemodynamically stable. He is alert and awake. He has a elevated lactate 2.4. Urinalysis reveals WBC of more than 50 and nitrite positive. He received 2 g of ceftriaxone in the ER. 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 Patient reportedly had a fall without loss of consciousness prior to admission. CT head, Chest xray were both negative for any acute findings. CT abdomen noted circumferential bladder wall thickening with stranding; Also noted 2 protrusions along the ventral aspect of the bladder concerning for lesions vs small decompressed diverticula with inflammation. Patient was given empiric rocephin while hospitalized and had improvement of his symptoms. Urine culture grew ESBL E. coli, and blood cultures showed no growth. He was switched to meropenem and completed 1 week total. Patient seen and evaluated by infectious disease and he completed 1 week of IV meropenem for the ESBL E. coli UTI infection. Patient was feeling better, afebrile, urinary symptoms resolved, hematuria resolved, and was deemed stable for discharge. Discussed CT findings with patient/family, and advised to follow up with Urology for further evaluation, workup in the near future. Initially trying for SNF for rehab due to his unsteadiness and dizziness, however while waiting for insurance approval he improved with PT and felt safe enough to go home and complete basic tasks. His symptoms resolved and had no issues for 2-3 days. Troponin's were noted to be mildly elevated but trended flat. (peak 217). Echo done 02/24 noted 55-60% EF, normal wall motion, grade 1 diastolic dysfunction. Cardiology was consulted and recommended following up as outpatient in near future for stress test. He also reported persistent dizziness that started after the fall, worsened with movement / turning head. Dizziness improved with time. CT head was negative for any acute findings. Suspect vertigo related to infection/UTI. No further episodes of dizziness in several days. Medications: no change in medications. Continue other home medications as previously prescribed. Follow up: PCP 3-5 days Cardiology 2-4 weeks Urology 2-4 weeks Please call to schedule / confirm appointments Physical Exam: GEN: Alert, oriented, NAD CV: Regular rate and rhythm, no edema Pulm: nonlabored respirations on room air, clear bilaterally ABD: soft, nontender, nondistended Neuro: Normal speech, normal affect Vital Signs/Physical Exam: Temp Pulse Resp BP Pulse Ox 98.2 F 52 16 140/63 91 03/07/24 08:00 03/07/24 08:00 03/07/24 08:00 03/07/24 08:00 03/07/24 08:00 Laboratory Data at Discharge: WBC 10.40 thou/uL (4.3-10.9) 03/04/24 05:29 Hgb 13.1 g/dL (13.6-17.9) L 03/04/24 05:29 Hct 37.5 % (39.6-49.0) L 03/04/24 05:29 Plt Count 251 thou/uL (152-406) 03/04/24 05:29 PT 15.7 SECONDS (9.4-12.5) H 02/25/24 19:40 INR 1.42 02/25/24 19:40 APTT 34.0 SECONDS (24.3-36.9) 02/25/24 19:40 Sodium 134 mEq/L (136-145) L 03/04/24 05:29 Potassium 4.0 mEq/L (3.5-5.1) 03/04/24 05:29 BUN 29 mg/dL (7-18) H 03/04/24 05:29 Creatinine 1.59 mg/dL (0.70-1.30) H 03/04/24 05:29 Glucose 137 mg/dL (74-106) H 12/29/24 05:29 Phosphorus 2.9 mg/dL (2.5-4.9) 03/04/24 05:29 Magnesium 2.3 mg/dL (1.6-2.4) 03/01/24 06:26 Total Bilirubin 1.4 mg/dL (0.2-1.0) H 02/25/24 19:40 AST 16 U/L (15-37) 02/25/24 19:40 ALT 19 U/L (16-61) 02/25/24 19:40 Alkaline Phosphatase 48 U/L (45-117) 02/25/24 19:40 Home Medications: Levothyroxine [Synthroid*] 88 mcg PO [id number] 10/07/13 Clopidogrel Bisulfate [Plavix*] 75 mg PO DAILY #30 tablet 10/09/13 Metoprolol Tartrate [Lopressor*] 50 mg PO Q12HR #60 tab 10/09/13 Amlodipine Besylate 5 mg PO DAILY 03/17/20 Rosuvastatin [Crestor*] 20 mg PO BEDTIME 03/17/20 Furosemide [Lasix*] 40 mg PO DAILY PRN 02/26/24 Oxybutynin Chloride [Oxybutynin Chloride ER] 2.5 mg PO BID 02/26/24 Pantoprazole [Protonix Tab*] 40 mg PO DAILY 02/26/24 Physician Discharge Instructions: Physician discharge instructions: Patient presents with dysuria, hematuria, associated with fever, weakness secondary to acute cystitis. Patient reportedly had a fall without loss of consciousness prior to admission. CT head, Chest xray were both negative for any acute findings. CT abdomen noted circumferential bladder wall thickening with stranding; Also noted 2 protrusions along the ventral aspect of the bladder concerning for lesions vs small decompressed diverticula with inflammation. Patient was given empiric rocephin while hospitalized and had improvement of his symptoms. Urine culture grew ESBL E. coli, and blood cultures showed no growth. He was switched to meropenem and completed 1 week total. Patient seen and evaluated by infectious disease and he completed 1 week of IV meropenem for the ESBL E. coli UTI infection. Patient was feeling better, afebrile, urinary symptoms resolved, hematuria resolved, and was deemed stable for discharge. Discussed CT findings with patient/family, and advised to follow up with Urology for further evaluation, workup in the near future. Initially trying for SNF for rehab due to his unsteadiness and dizzines, however while waiting for insurance approval he improved with PT and felt safe enough to go home and complete basic tasks. His symptoms resolved and had no issues for 2- 3 days. Troponin's were noted to be mildly elevated but trended flat. (peak 217). Echo done 02/24 noted 55-60% EF, normal wall motion, grade 1 diastolic dysfunction. Cardiology was consulted and recommended following up as outpatient in near future for stress test. He also reported persistent dizziness that started after the fall, worsened with movement / turning head. Dizziness improved with time. CT head was negative for any acute findings. Suspect vertigo related to infection/UTI. No further episodes of dizziness in se veral days. Medications: no change in medications. Continue other home medications as previously prescribed. Follow up: PCP 3-5 days Cardiology 2-4 weeks Urology 2-4 weeks Please call to schedule / confirm appointments CT abdomen report 1. Circumferential bladder wall thickening with stranding. 2. 2 protrusions along the ventral aspect of the bladder that may be lesions or small decompressed diverticula with inflammation. Consider outpatient urology evaluation. 3. Small pericardial effusion, cardiomegaly, prostatomegaly, splenomegaly 4. 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 Diet: AHA Activity: Fall precautions Followup: Lake Stinson MD [ACTIVE - CAN ADMIT] - 1-2 Weeks (For arrangement for outpatient stress test.) Javier Kay DO [Primary Care Provider] - 1-2 Weeks Time spent managing pt's care (in minutes): 45
[2024-03-07 12:52] VITALS: BP 144/69; TEMP 97.9
== END 2024-03-07 12:30 | disposition home health service (06) | DRG 689 ==
LOC: ER 19:08 → 4TH 22:12
PROVIDERS: ADMIT Internal Medicine; ATTEND Hospitalist
DX: N30.01 Acute cystitis with hematuria (principal); I21.A1 Myocardial infarction type 2; E87.20 Acidosis, unspecified; I69.351 Hemiplegia and hemiparesis following cerebral infarction affecting right dominant side; I13.0 Hypertensive heart and chronic kidney disease with heart failure and stage 1 through stage 4 chronic kidney disease, or unspecified chronic kidney disease; I50.32 Chronic diastolic (congestive) heart failure; N17.9 Acute kidney failure, unspecified; K42.0 Umbilical hernia with obstruction, without gangrene; Z16.12 Extended spectrum beta lactamase (ESBL) resistance; D69.6 Thrombocytopenia, unspecified; D63.8 Anemia in other chronic diseases classified elsewhere; N18.30 Chronic kidney disease, stage 3 unspecified; E03.9 Hypothyroidism, unspecified; E66.9 Obesity, unspecified; I25.10 Atherosclerotic heart disease of native coronary artery without angina pectoris; Z68.37 Body mass index [BMI] 37.0-37.9, adult; R55 Syncope and collapse; R53.1 Weakness; Z95.5 Presence of coronary angioplasty implant and graft; B96.20 Unspecified Escherichia coli [E. coli] as the cause of diseases classified elsewhere
CPT/HCPCS: 36415; 51702; 70450; 71045; 74176; 80048; 80053; 81001; 82947; 83605; 83735; 83880; 84100; 84484; 85025; 85027; 85610; 85730; 87040; 87077; 87086; 87088; 87186; 93005; 93306; 96361; 96365; 97116; 97161; 97165; 97530; 99285; J0360; J0696; J1644; J1940; J2185; J7030; J7040

== ENCOUNTER 2024-06-24 10:09 | Emergency (ER) | payer OTHER ==
--- OUTSIDE RECORDS SUMMARY | 2024-06-24 10:12 | XMS REPORT | Continuity of Care Document ---
Author Name Unknown Address [address] [place] [address] [address] [place] [address] [facility] Address [address] [facility] [address] [place] [address] Care Team Providers Care Recycling Attendant Name Role Phone Cindy-Mbayo_A_AH Attending Clinician Unavailable Cindy-Mbayo_A_AH Admitting Clinician Unavailable Payers Payer Name Policy Type Policy Number Effective Date Expirati on Date Source [facility] (MEDICARE REPLACEMENT/ADVANT AGE - HMO) [id number] 00:00:00 Encounters Start Date/Time End Date/Time Encounter Type Admission Type Attending Clinicians Care Facility Care Department Encounter ID Source 2019-04-25 07:18:00 2019-04-25 07:18:00 Outpatient Cindy-Mbayo _A_AH VFP VFP [id number] [facility] e
[2024-06-24 10:34] LABS: Absolute Lymphocytes (CBC) 0.2 K/uL (0.7-4.9); Absolute Monocytes 0.4 K/uL (0.1-1.3); Absolute Neutrophil 8.1 K/uL (1.8-8.0); Basophils % 0.4 % (0-1.3); Eosinophils % 0.4 % (0-4.4); Hematocrit 38.7 % (39.6-49.0); Hemoglobin 13.7 g/dL (13.6-17.9); Lymphocytes % 2.6 % (15.3-44.8); MCH 30.6 pg (27.0-35.0); MCHC 35.3 g/dL (32.0-36.0); MCV 86.6 fL (80-100); MPV 7.5 fL (7.6-11.3); Monocytes % 4.9 % (3.3-12.3); Neutrophils % 91.7 % (41.7-73.7); Platelets 112 thou/uL (152-406); RBC Red Blood Cell Count 4.46 M/uL (4.33-5.43)
[2024-06-24 10:39] LABS: PT Prothrombin Time 14.2 SECONDS (10-13.0); Protime INR 1.26
[2024-06-24 10:51] LABS: Anion Gap 8.5 mEq/L (5.0-15.0); Magnesium 1.7 mg/dL (1.6-2.4); Potassium 3.5 mEq/L (3.5-5.1); Troponin High Sensitivity 14.3 pg/mL (<58.9)
--- NOTE | 2024-06-24 11:20 | RAD REPORT ---
Procedure: Chest Single View HISTORY: Abdominal pain and dizziness COMPARISON: 2023 FINDINGS: The lungs appear clear of acute infiltrate. No significant pleural effusion noted. The heart is mildly enlarged. IMPRESSION: No acute abnormality is displayed.
[2024-06-24 12:04] LABS: Specific Gravity 1.015 (1.005-1.030); Sqamous Epithelial <5 /HPF (None Seen); Transitional Epithelial <5 /HPF (None Seen); Urine Bacteria <20 /HPF (<20); Urine Bilirubin NEGATIVE (Negative); Urine Blood 1+ (Negative); Urine Clarity Extremely Turbid (Clear); Urine Color Yellow (Yellow); Urine Glucose NEGATIVE (Negative); Urine Ketones NEGATIVE (Negative); Urine Micro Reflex YN NO BILL MICROSCOPIC; Urine Mucus Slight /HPF (None Seen); Urine Nitrite NEGATIVE (Negative); Urine Protein 1+ (Negative); Urine RBC <5 /HPF (None Seen); Urine Urobilinogen Normal (Normal); Urine WBC >50 /HPF (<5); Urine WBC Clump Rare /HPF (None Seen); Urine pH 5.5 (5.0-7.0)
[2024-06-24] MEDS ORDERED: MECLIZINE HCL 12.5 MG TAB ONE (12:27)
[2024-06-24] MEDS ORDERED: NA CHLORIDE 0.9% 500 ML ONE (12:28)
[2024-06-24] MEDS ORDERED: SMZ./TMP. 800/160 MG TABLET ONE (12:28)
--- NOTE | 2024-06-24 12:34 | EDPHYS ---
Physician Documentation [facility] Name: Reynaldo Perdomo Age: 78 yrs Sex: Male : 1945 Arrival Date: 06/24/2024 Time: 10:09 Bed 7 Private MD: ED Physician Brandon Tanner HPI: 06/24 10:15 This 78 yrs old Male presents to ER via EMS with complaints of Dizziness, sb4 Urinary Frequency. 10:16 patient reports dizziness that began while he was getting dressed this morning. he sb4 states that he has had dizziness in the past, usually when he has had a UTI. states he has had some urinary frequency and a strong odor to his urine but no burning with urination. denies any fever, chills, nausea, vomiting, diarrhea, chest pain, or shortness of breath. Historical: - Allergies: 10:14 No Known Allergies; kc6 - PMHx: 10:14 stroke; IA; Kidney stones; Hypothyroidism; Hypertension; Hypercholesterolemia; kc6 Congestive heart failure; Gastroesophageal reflux disease; - PSHx: 10:25 Appendectomy; Stented artery; Cholecystectomy; kc6 - Immunization history:: Adult Immunizations up to date. - Infectious Disease History:: Denies. - Social history:: Smoking status: Patient denies any tobacco usage or history of. ROS: 10:16 Constitutional: Negative for fever, chills, and weight loss, sb4 10:16 : Positive for urinary frequency, 10:16 Neuro: Positive for dizziness, 10:16 All other systems are negative, Exam: 10:16 Constitutional: This is a well developed, well nourished patient who is awake, alert, sb4 and in no acute distress. Head/Face: Normocephalic, atraumatic. Eyes: Extra-ocular motions intact. Periorbital areas with no swelling, redness, or edema. ENT: Mucous membranes moist. Cardiovascular: Regular rate and rhythm with a normal S1 and S2. Respiratory: No increased work of breathing, no retractions or nasal flaring. Abdomen/GI: Soft, non-tender, no distension. Skin: Warm, dry with normal turgor. Normal color with no rashes, no lesions, and no evidence of cellulitis. Neuro: Awake and alert, GCS 15, oriented to person, place, time, and situation. Motor strength 5/5 in all extremities. Sensory grossly intact. Vital Signs: 10:12 BP 143 / 48; Pulse 60; Resp 16 S; Temp 99.5(O); Pulse Ox 91% on R/A; Weight 120.2 kg kc6 (R); Height 5 ft. 11 in. (R); Pain 0/10; 10:24 BP 129 / 51; kc6 11:00 BP 128 / 47; Pulse 56; Resp 20; Pulse Ox 90% ; jl7 11:50 BP 107 / 78; Pulse 53; Resp 16 S; Pulse Ox 93% on R/A; kc6 12:34 BP 130 / 52; Pulse 51; Resp 20; Pulse Ox 91% ; jl7 13:19 BP 143 / 59; Pulse 55; Resp 18 S; Pulse Ox 93% on R/A; kc6 10:12 Body Mass Index 36.96 (120.20 kg, 180.34 cm) kc6 10:12 Pain Scale: Adult kc6 MDM: 10:11 Medical Screening Exam initiated sb4 12:33 Data reviewed: vital signs, nurses notes, EMS record, lab test result(s), EKG, sb4 radiologic studies, and as a result, I will discharge patient. Consideration of Admission/Observation Escalation of care including admission/observation considered. Care significantly affected by the following chronic conditions: Hypertension, Congestive Heart Failure, Obesity, Chronic Kidney Disease. Counseling: I had a detailed discussion with the patient and/or guardian regarding the historical points, exam findings, and any diagnostic results supporting the discharge/admit diagnosis, lab results, radiology results, the need for outpatient follow up, for definitive care, to return to the emergency department if symptoms worsen or persist or if there are any questions or concerns that arise at home. 06/24 10:11 Order name: Basic Metabolic Panel; Complete Time: 10: sb4 06/24 10:11 Order name: CBC with Diff; Complete Time: 10:35 sb4 06/24 10:11 Order name: Magnesium; Complete Time: 10: sb4 06/24 10:11 Order name: NT PRO-BNP; Complete Time: 10:52 sb4 06/24 10:11 Order name: PT-INR; Complete Time: 10:39 sb4 06/24 10:11 Order name: Troponin HS; Complete Time: 10:52 sb4 06/24 10:11 Order name: UAM; Complete Time: 12:04 sb4 06/24 10:11 Order name: XRAY Chest (1 view); Complete Time: 11: sb4 06/24 10:11 Order name: Cardiac monitoring; Complete Time: sb4 06/24 10:11 Order name: EKG - Nurse/Tech; Complete Time: sb4 06/24 10:11 Order name: IV Saline Lock; Complete Time: sb4 06/24 10:11 Order name: Labs collected and sent; Complete Time: sb4 06/24 10:11 Order name: O2 Per Protocol; Complete Time: sb4 06/24 10:11 Order name: O2 Sat Monitoring; Complete Time: : sb4 EC: Rate is 62 beats/min. Rhythm is regular, Normal Sinus Rhythm with Right bundle branch sb4 block. FL interval is normal at 186 msec. QRS interval is normal at 132 msec. QT interval is normal at 456 msec. No Q waves. T waves are Normal. No ST changes noted. Clinical impression: No evidence of ischemia. Interpreted by me. Reviewed by me. Administered Medications: 12:37 Drug: NS 0.9% IV 500 ml 500 ml IV at 1 bolus once; to be given as a bolus over 30 kc6 minutes Volume: 500 ml; Route: IV; Rate: 1 bolus; Site: right forearm; 13:18 Follow up: Response: No adverse reaction; IV Status: Completed infusion; IV Intake: kc6 500ml 12:37 Drug: Trimethoprim-Sulfamethoxazole PO (160 mg-800 mg (DS) 1 tablet PO once Route: PO; kc6 13:19 Follow up: Response: No adverse reaction kc6 12:37 Drug: Meclizine PO 50 mg PO once Route: PO; kc6 13:19 Follow up: Response: No adverse reaction kc6 Disposition Summary: 06/24/24 12:33 Discharge Ordered Notes: Location: Home sb4 Problem: new sb4 Symptoms: have improved sb4 Condition: Stable sb4 Diagnosis - Dizziness and giddiness sb4 - UTI/ Urinary tract infection, site not specified sb4 Followup: sb4 - With: Private Physician - When: As needed - Reason: Recheck today's complaints, Re-evaluation by your physician Discharge Instructions: - Discharge Summary Sheet sb4 - Urinary Tract Infection, Adult, [id number] sb4 - Dizziness, [id number] sb4 Forms: - Antibiotic Education sb4 - Patient Portal Instructions sb4 - Leadership Thank You Letter sb4 Prescriptions: - Meclizine 25 mg Oral Tablet - take 1 tablet ORAL route every 8 hours As needed; 30 tablet; Refills: 0, sb4 Product Selection Permitted - Bactrim DS 800-160 mg Oral Tablet - take 1 tablet ORAL route every 12 hours for 10 days; 20 tablet; Refills: 0, sb4 Product Selection Permitted Addendum: 06/26/2024 14:49 Co-signature as Attending Physician, Brandon Tanner MD I agree with the assessment and c carl plan of care. Signatures: Dispatcher [employer] EDBrandon Brock MD MD cha Campbell, Kaitlyn, RN RN kc6 Barbie Garibay, PALuisC PAPonce sb4 Corrections: (The following items were deleted from the chart) 06/24 10:11 10:11 BASIC METABOLIC PANEL+C.LAB.BRZ ordered. EDMS EDMS 10:11 10:11 CBC+H.LAB.BRZ ordered. EDMS EDMS 10:11 10:11 MAGNESIUM+C.LAB.BRZ ordered. EDMS EDMS 10:11 10:11 PROBNP+C.LAB.BRZ ordered. EDMS EDMS 10:12 10:11 PROTIME (+INR)+COAG.LAB.BRZ ordered. EDMS EDMS 10:12 10:11 Troponin High Sensitivity+C.LAB.BRZ ordered. EDMS EDMS 10:12 10:11 Urinalysis W/Microscopic+U.LAB.BRZ ordered. EDMS EDMS 10:12 10:12 Chest Single View+RAD.RAD.BRZ ordered. EDMS EDMS 10:25 10:14 PSHx: cardiac stents; kc6 kc6
--- NOTE | 2024-06-24 12:34 | ER ---
Nurse's Notes [facility] Name: Reynaldo Perdomo Age: 78 yrs Sex: Male : 1945 Arrival Date: 06/24/2024 Time: 10:09 Bed 7 Private MD: Diagnosis: Dizziness and giddiness;UTI/ Urinary tract infection, site not specified Presentation: 06/24 10:12 Chief complaint: EMS states: they were toned out for dizziness and urinary frequency kc6 beginning this AM. pt denies any other symptoms. Coronavirus screen: At this time, the client does not indicate any symptoms associated with coronavirus-19. Ebola Screen: No symptoms or risks identified at this time. Initial Sepsis Screen: Does the patient meet any 2 criteria? No. Patient's initial sepsis screen is negative. Does the patient have a suspected source of infection? No. Patient's initial sepsis screen is negative. Risk Assessment: Do you want to hurt yourself or someone else? Patient reports no desire to harm self or others. Onset of symptoms was June 24, 2024. Care prior to arrival: Glucose check: 105. 10:12 Method Of Arrival: EMS: [facility] kc6 10:12 Acuity: GIANFRANCO 3 kc6 Historical: - Allergies: 10:14 No Known Allergies; kc6 - PMHx: 10:14 stroke; [place]; Kidney stones; Hypothyroidism; Hypertension; Hypercholesterolemia; kc6 Congestive heart failure; Gastroesophageal reflux disease; - PSHx: 10:25 Appendectomy; Stented artery; Cholecystectomy; kc6 - Immunization history:: Adult Immunizations up to date. - Infectious Disease History:: Denies. - Social history:: Smoking status: Patient denies any tobacco usage or history of. Screenin:25 [facility] ED Fall Risk Assessment (Adult) History of falling in the last 3 months, kc6 including since admission No falls in past 3 months (0 pts) Confusion or Disorientation No (0 pts) Intoxicated or Sedated No (0 pts) Impaired Gait No (0 pts) Mobility Assist Device Used Yes (1 pt) Altered Elimination No (0 pt) Score/Fall Risk Level 0 - 2 = Low Risk Oriented to surroundings, Maintained a safe environment, Educated pt \T\ family on fall prevention, incl call for assistance when getting out of bed. Abuse screen: Denies threats or abuse. Denies injuries from another. Nutritional screening: No deficits noted. Tuberculosis screening: No symptoms or risk factors identified. Assessment: 10:12 General: Appears in no apparent distress. comfortable, well groomed, well developed, kc6 Behavior is calm, cooperative, appropriate for age. Pain: Denies pain. Neuro: Level of Consciousness is awake, alert, obeys commands, Oriented to person, place, time, situation, Appropriate for age Reports dizziness. Cardiovascular: Capillary refill < 3 seconds. Respiratory: Airway is patent Trachea midline Respiratory effort is even, unlabored, Respiratory pattern is regular, symmetrical. GI: No signs and/or symptoms were reported involving the gastrointestinal system. : Reports urinary frequency, Denies burning with urination. EENT: No signs and/or symptoms were reported regarding the EENT system. Derm: No signs and/or symptoms reported regarding the dermatologic system. Skin is intact, is fragile, is thin, with poor turgor Skin is pink, warm \T\ dry. Musculoskeletal: No signs and/or symptoms reported regarding the musculoskeletal system. Circulation, motion, and sensation intact. Range of motion: intact in all extremities. 11:42 Reassessment: Patient appears in no apparent distress at this time. No changes from kc6 previously documented assessment. Patient and/or family updated on plan of care and expected duration. Pain level reassessed. Patient is alert, oriented x 3, equal unlabored respirations, skin warm/dry/pink. 12:42 Reassessment: Patient appears in no apparent distress at this time. No changes from kc6 previously documented assessment. Patient and/or family updated on plan of care and expected duration. Pain level reassessed. Patient is alert, oriented x 3, equal unlabored respirations, skin warm/dry/pink. 12:50 Reassessment: d/c pending completion of IV fluids. kc6 13:19 Reassessment: Patient appears in no apparent distress at this time. No changes from kc6 previously documented assessment. Patient and/or family updated on plan of care and expected duration. Pain level reassessed. Patient is alert, oriented x 3, equal unlabored respirations, skin warm/dry/pink. Vital Signs: 10:12 BP 143 / 48; Pulse 60; Resp 16 S; Temp 99.5(O); Pulse Ox 91% on R/A; Weight 120.2 kg kc6 (R); Height 5 ft. 11 in. (R); Pain 0/10; 10:24 BP 129 / 51; kc6 11:00 BP 128 / 47; Pulse 56; Resp 20; Pulse Ox 90% ; jl7 11:50 BP 107 / 78; Pulse 53; Resp 16 S; Pulse Ox 93% on R/A; kc6 12:34 BP 130 / 52; Pulse 51; Resp 20; Pulse Ox 91% ; jl7 13:19 BP 143 / 59; Pulse 55; Resp 18 S; Pulse Ox 93% on R/A; kc6 10:12 Body Mass Index 36.96 (120.20 kg, 180.34 cm) kc6 10:12 Pain Scale: Adult kc6 ED Course: 10:10 Patient arrived in ED. sb4 10:10 Barbie Garibay PA-C is PHCP. sb4 10:10 Brandon Tanner MD is Attending Physician. sb4 10:12 Breanna Parkinson RN is Primary Nurse. kc6 10:14 Triage completed. kc6 10:14 Arm band placed on. kc6 10:15 Initial lab(s) drawn, by mt, sent to lab. Inserted saline lock: 20 gauge in right jl7 forearm, using aseptic technique. Blood collected. Flushed with 10 mL NS. 10:24 Patient has correct armband on for positive identification. Bed in low position. Call kc6 light in reach. Side rails up X 1. awake overnight monitor on. Pulse ox on. NIBP on. Door closed. Noise minimized. Lights dimmed. Pillow given. Verbal reassurance given. 10:58 XRAY Chest (1 view) In Process Unspecified. EDMS 11:43 Assisted with urinal. kc6 11:50 Urine collected: clean catch specimen, cloudy. kc6 13:35 No provider procedures requiring assistance completed. IV discontinued, intact, kc6 bleeding controlled, No redness/swelling at site. Pressure dressing applied. Administered Medications: 12:37 Drug: NS 0.9% IV 500 ml 500 ml IV at 1 bolus once; to be given as a bolus over 30 kc6 minutes Volume: 500 ml; Route: IV; Rate: 1 bolus; Site: right forearm; 13:18 Follow up: Response: No adverse reaction; IV Status: Completed infusion; IV Intake: kc6 500ml 12:37 Drug: Trimethoprim-Sulfamethoxazole PO (160 mg-800 mg (DS) 1 tablet PO once Route: PO; kc6 13:19 Follow up: Response: No adverse reaction kc6 12:37 Drug: Meclizine PO 50 mg PO once Route: PO; kc6 13:19 Follow up: Response: No adverse reaction kc6 Medication: 13:35 VIS not applicable for this client. kc6 Intake: 13:18 IV: 500ml; Total: 500ml. kc6 Outcome: 12:33 Discharge ordered by sb4 13:35 Discharged to home via wheelchair, with family, kc6 13:35 Condition: good 13:35 Discharge instructions given to patient, Instructed on discharge instructions, follow up and referral plans. medication usage, Demonstrated understanding of instructions, follow-up care, medications, Prescriptions given X 2, 13:35 Patient left the ED. kc6 Signatures: Dispatcher [employer] EDMS Yoly Quiles RN RN jl7 Breanna Parkinson RN RN kc6 Barbie Garibay PA-Antonio PA-C sb4 Corrections: (The following items were deleted from the chart) 10:24 10:12 BP 143 / 48; Pulse 85bpm; Resp 16bpm; Spontaneous; Pulse Ox 98% RA; Temp 99.5F kc6 Oral; 120.2 kg Reported; Height 5 ft. 11 in. Reported; BMI: 36.9; Pain 0/10, Adult; kc6 10:24 10:24 Patient maintains SpO2 saturation greater than 95% on room air. kc6 kc6 10:25 10:14 PSHx: cardiac stents; kc6 kc6
[2024-06-24 13:44] VITALS: TEMP 99.5
[2024-06-24 13:52] VITALS: BP 143/59; O2SAT 93
--- NOTE | 2024-06-27 12:48 | EKG ---
Test Date: 2024-06-24 Test Time: 10:19:59 Paper Cutter: ANGELIC MEASUREMENT RESULTS: Intervals: Rate: 62 NE: 186 QRSD: 132 QT: 456 QTc: 462 [place]: P: 59 NE: 186 QRS: 41 T: 47 INTERPRETIVE STATEMENTS: Normal sinus rhythm Right bundle branch block Abnormal ECG Compared to ECG 02/25/2024 19:52:44 No significant changes Electronically Signed On 06-27-24 12:41:01 CDT by [place]
== END 2024-06-24 13:35 | disposition home or self-care (01) ==
LOC: ER 10:09
DX: N39.0 Urinary tract infection, site not specified (principal); I10 Essential (primary) hypertension; Z87.442 Personal history of urinary calculi
CPT/HCPCS: 93005; 85025; 81001; 80048; 36415; 83735; 85610; 84484; 83880; 71045; 96360; 99285; J8597; J7040